=== PATIENT | female | born 1955 | race Caucasian/White ===

== ENCOUNTER → 2020-01-25 13:35 | Outpatient (BNVA) | payer MEDICAID, SELFPAY | PROVIDERS: Family Provider Nurse Practitioner Family; Visit Provider Specialist | DX: S82.141A Displaced bicondylar fracture of right tibia, initial encounter for closed fracture (principal); X58.XXXA Exposure to other specified factors, initial encounter | CPT/HCPCS: 73560; 73565 ==

== ENCOUNTER 2020-02-02 08:13 | Outpatient (CLI) | payer MEDICAID, SELFPAY ==
--- NOTE | 2020-02-02 08:45 | NM_ITS ---
WS: [id number] THREE-PHASE BONE SCAN HISTORY: surgical candidate COMPARISON: Knee radiograph 01/25/2020 Patient is is injected with 25.9 mCi Tc99m HDP intravenously. Immediate angiographic phase imaging is performed over the area of concern. Static blood pool imaging also performed. Two-hour whole-body sc intigrams performed in anterior and posterior projections. Additional large field of view imaging sub mitted as necessary. Imaging centered over the knees bilaterally. On the arterial phase imaging there is very slight increased uptake in the RIGHT medial femoral condy le extending to the midline. On the blood pool and delayed imaging there is also increased uptake in a similar location. Marked increased uptake on the delayed imaging involving the medial RIGHT femoral condyle and to a lesser extent laterally. On the delayed imaging there is slight increased uptake al abebe the medial and lateral RIGHT tibial plateau. The area of increased uptake on all 3 phases corresp onds to an area of lucency on the radiographs. Moderate increased uptake at the ankles bilaterally from arthritis. There is additional arthritic corie nges at the elbows and wrists bilaterally and minimally at the LEFT knee joint. Soft tissue uptake is normal. NM/NM bone 3 phase 50322 IMPRESSION: 1. Increased uptake in all 3 phases involving the RIGHT medial femoral condyle . Suspicious for osteomyelitis. This corresponds to an area of lucency and lyti c change in the medial RIGHT femoral condyle seen on recent radiographs. 2. Additional uptake at multiple joints as described above is likely due to ar thritis.
== END 2020-02-02 08:14 | disposition home or self-care (01) ==
LOC: NM 08:15
PROVIDERS: PCP Nurse Practitioner Family; Visit Provider Specialist
DX: M25.562 Pain in left knee (principal); M25.561 Pain in right knee
CPT/HCPCS: 78315; A9561

== ENCOUNTER 2020-02-03 13:25 | Emergency (ER) | payer MEDICAID, SELFPAY | END 2020-02-03 20:38 | disposition admitted as inpatient to this hospital (09) | LOC: ER 02-04 18:06 | PROVIDERS: Emergency Provider Emergency Medicine; PCP Nurse Practitioner Family | DX: M25.552 Pain in left hip (principal); F17.210 Nicotine dependence, cigarettes, uncomplicated | CPT/HCPCS: 12345; 72131; 73502; 73552; 75635; 80053; 84145; 85025; 85651; 86140; 93926; 93971; 96361; 96374; 96375; 99282; 99285; J0131; J1170; J2270; J2405; J7030; Q9967 ==

== ENCOUNTER 2020-02-03 13:45 | Inpatient (IN) | payer MEDICAID, SELFPAY ==
[2020-02-03 13:46] VITALS: BP 147/76; PULSE 86; RESP 18; TEMP 36.9; O2SAT 98; BMI 21.0
--- NOTE | 2020-02-03 13:55 | XRR_ITS ---
PROCEDURE INFORMATION: Exam: XR Left Hip with Pelvis when Performed Exam date and time: 02/03/2020 2:52 PM Age: 64 years old Clinical indication: Hip pain; Patient HX: Previous right hip surgery. C/O pain left hip -leg x 1 week; Additional info: Pain. Was preparing for right knee surgery TECHNIQUE: Imaging protocol: XR Left hip with pelvis when performed. Views: 2 or 3 views. COMPARISON: No relevant prior studies available. FINDINGS: Bones/joints: Metallic intramedullary bravo and screw is seen in the right hip. No acute fracture. The examination is otherwise unremarkable Soft tissues: Unremarkable. XR/XR hip LT 2-3V wo/w pel* [id number] IMPRESSION: No acute findings. Postsurgical changes right hip
--- NOTE | 2020-02-03 13:55 | USCV_ITS ---
Lori Thomas Age: 64 Gender: F : 1955 Exam Date: 02/03/2020 14:20 Ordering Phys: Kasandra Zaidi DO Technologist: Kevin Sarah Exam Location: [facility] – [place]_ Indication: PAIN HISTORY: left lower extremity pain PROCEDURES: Venous duplex imaging was performed in only the left lower extremity. FINDINGS: Normal 2-D Doppler and augmentation and compressibility throughout the lower extremity venous structures. Additional imaging through the proximal calf veins also reveals no thrombus. Limited evaluation of the greater saphenous vein is patent with no thrombus.. CONCLUSIONS No evidence of DVT in the above-mentioned identifiable veins. Dr Loc Lackey MD FAC (Electronically Signed) Final Date: 03 February 2020 20:03 S
--- NOTE | 2020-02-03 13:55 | USCV_ITS ---
Lori Thomas Age: 64 Gender: F : 1955 Exam Date: 02/03/2020 14:25 Ordering Phys: Kasandra Zaidi DO Technologist: Kevin Sarah Exam Location: [facility] [place] Indication: PAIN Risk Factors: Previous Vascular Surgery: None RIGHT LEFT BP: 150.0 / BP: 150.0/ 0 0 Waveform Velocity (cm/s) Velocity (cm/s) Waveform Iliac Prox 90.4 Triphasic Iliac Mid 93.7 Triphasic Iliac Distal 101.4 Triphasic SLAB POLISHER 93.7 Triphasic SFA Prox 102.5 Triphasic SFA Mid 113.6 Triphasic SFA Dist 98.1 Triphasic POP 94.8 Triphasic [employer] LAYUP LINE BACK FEEDER 89.7 Triphasic DPA 67.7 Biphasic TIFFANY 1.1 FINDINGS Normal resting TIFFANY on the left side. Normal arterial Doppler waveform. Minimal intimal thickening in the arteries. CONCLUSIONS No significant arterial obstruction on the left side, based on the above findings Dr Loc Lackey MD [facility] (Electronically Signed) Final Date: 03 February 2020 20:06 S
--- NOTE | 2020-02-03 13:55 | XRR_ITS ---
PROCEDURE INFORMATION: Exam: XR Left Femur Exam date and time: 02/03/2020 2:52 PM Age: 64 years old Clinical indication: Hip and thigh; Patient HX: C/O pain left hip leg x 1 week TECHNIQUE: Imaging protocol: XR Left femur. Views: 2 views. COMPARISON: No relevant prior studies available. FINDINGS: Bones/joints: Unremarkable. No acute fracture. Soft tissues: Unremarkable. XR/XR femur LT min 2V* [id number] IMPRESSION: No acute findings.
--- NOTE | 2020-02-03 14:15 | W.ED.EXTPRO ---
HPI - Extremity Problem General: Chief complaint: Extremity Injury, Lower Stated complaint: lower extremity pain Time Seen by Provider: 02/03/20 13:47 Source: patient and EMS Mode of arrival: EMS Limitations: no limitations History of Present Illness: HPI Narrative: Lori is a nice 64-year-old female who comes in complaining of left leg pain. She states she had some outpatient test done here at the hospital yesterday planning for a right knee surgery. She got up during the night and noticed pain in her left leg but then this morning she had severe pain in her left groin, left thigh that extends down to her knee. The pain is worse when she tries to move it or bear weight. She denies fevers, injury or distal numbness or weakness. Patient denies having anything like this before. She is not tried anything at home for the pain or to make this better or worse. Associated symptoms: Deny chest pain, fever(s) or rash Review of Systems Const: Denies: fever(s), chills, body aches, fatigue, malaise or diaphoresis Eyes: Denies: change in vision, blurry vision, blind spots, photophobia, eye discharge or eye redness ENMT: Denies: throat pain, odynophagia, hoarseness, swelling of lips/tongue, oral sores, ear or mastoid pain, ear discharge, change in hearing or nasal discharge Card: Denies: chest pain, palpitations, irregular heart rhythm, edema, lightheadedness, syncope, pre-syncope, dyspnea on exertion or orthopnea Resp: Denies: dyspnea, productive cough, non-productive cough, wheezing, hemoptysis or chest congestion GI: Denies: abdominal pain, nausea, vomiting, hematemesis, coffee ground emesis, heartburn, diarrhea, constipation, GI cramping, hematochezia or melena : Denies: flank pain, dysuria, urinary frequency, urinary urgency or hematuria Musc: Reports: extremity pain; Denies: neck pain, back pain, extremity swelling, joint pain, joint swelling, joint redness, joint warmth or joint stiffness Skin/Breast: Denies: rash, pruritus, erythema, skin tenderness or jaundice Neuro: Denies: headache(s), numbness in extremities, weakness in extremities, sensory changes, lack of coordination, difficulty walking, dizziness, vertigo, confusion, Slurred speech present or seizure-like activity Ronald/Lymph: Denies: easy bruising, easy bleeding, petechiae, purpura or enlarged lymph nodes All/Imm: Denies: urticaria, throat swelling, tongue swelling, facial swelling or acute wheezing PFSH ED PFSH: Medical History Fibromyalgia Hypothyroidism Nicotine dependence Osteomyelitis of right knee region Rheumatoid arthritis S/P ORIF (open reduction internal fixation) fracture Surgical History Status post hip surgery Right intertrochanteric hip fracture 06/30 Family History Other Arthritis Social History Smoking and tobacco status: current every day smoker cigarettes Packs smoked per day: 0.5 Alcohol intake: never Substance/Drug Use: never Housing: House Physical Exam Const: COMMON NORMALS: no acute distress, patient oriented x3, no limitations, healthy appearing and well nourished GENERAL APPEARANCE: cooperative, well kempt and well developed HENMT: COMMON NORMALS: normocephalic, atraumatic, external ears normal, EAC's normal and Normal external nose present HEAD & SCALP: normal to inspection, normocephalic and atraumatic FACE & SINUS: normal facial exam and face symmetric NOSE: Normal external nose present and Normal nares present EXTERNAL EAR: Yes external ears normal EXTERNAL AUDITORY CANAL: EAC's normal MOUTH: Normal oral and palatal mucosa present, lip normal and tongue normal Eye: COMMON NORMALS: Equal, round and reactive pupils present and conjunctivae normal GENERAL EYE: appearance normal, both eyes and all related structures ALIGNMENT: Yes alignment normal PERIORBITAL: periorbital findings normal EYELID: eyelids normal CONJUNCTIVA: Yes conjunctivae normal SCLERA: sclerae normal PUPIL: Yes Equal, round and reactive pupils present Neck/C-Spine: COMMON NORMALS: full ROM, no lymphadenopathy, supple, no meningeal signs and no JVD GENERAL: Yes normal visual inspection and Yes trachea midline Chest: COMMONS NORMALS: normal inspection of the chest and normal palpation of entire chest wall Resp: COMMON NORMALS: normal respiratory effort, No retractions and No use of accessory muscles EFFORT & INSPECTION: Yes able to speak in complete sentences and Yes symmetric chest movement AUSCULTATION: no crackles, no rales, no rhonchi and no wheezes Cardio: COMMON NORMALS: no JVD, regular rate, regular rhythm, S1 normal heart sound present and S2 normal heart sound present RATE: regular rate RHYTHM: regular rhythm HEART SOUNDS: S1 normal heart sound present, S2 normal heart sound present, no click, no gallops, no murmurs, no rubs and abnormal split S2 GI: COMMON NORMALS: Soft to palpation and No hepatosplenomegaly present PALPATION: Yes Soft to palpation, No Tenderness to palpation present (GI), No Guarding due to palpation present (GI), No Rigid due to palpation, Yes No hepatosplenomegaly present, No Hernia present, No Palpable mass present and No Pulsatile mass present : COMMON NORMALS: Yes no CVA tenderness BLADDER/KIDNEY EXAM: Yes no CVA tenderness EXTERNAL FEMALE EXAM: No Hernia present Back/Pelvis: COMMON NORMALS: no CVA tenderness, thoracic and lumbar spine normal to inspection, no thoracic nor lumbar tenderness and thoraco-lumbar ROM normal Extremity: COMMON NORMALS: capillary refill normal, no joint enlargement, no clubbing, cyanosis or edema and no calf tenderness NARRATIVE EXTREMITY EXAM: Pain on palpation from the greater trochanter down through the mid thigh. Neuro: COMMON NORMALS: patient oriented x3, CN's II-XII intact bilaterally, moves all extremities, no focal motor deficits and no sensory deficits noted MENINGEAL SIGNS: Yes no meningeal signs SPEECH: speech normal Psych: COMMON NORMALS: mental status grossly normal, Normal thought process present, cooperative, normal affect, speech normal and activity/motor behavior normal APPEARANCE: Yes well kempt SPEECH: Yes normal speech THOUGHT PROCESS: Normal thought process present Skin: COMMON NORMALS: no rashes or lesions noted, turgor normal, no jaundice, no petechiae and no mottling GENERAL SKIN EXAM: no rashes or lesions noted and turgor normal Course Vital Signs: Vital signs: Vital Signs Temperature 98.4 F 02/03/20 21:07 Pulse Rate 71 02/03/20 21:07 Respiratory Rate 18 02/03/20 21:38 Blood Pressure 130/63 02/03/20 21:07 Pulse Oximetry 94 02/03/20 21:07 MDM - Extremity (Nontraumatic) MDM Narrative: Medical decision making narrative: After complete work-up the patient initially wanted to go home with crutches and something for pain. Unfortunately I am unable to relieve her pain. Any movement at all she has severe pain in her left leg and hip. I reviewed the case in full with Dr. Mccarty he agrees the patient will need an MRI or further work-up by orthopedics for possible septic joint. I did review the case in full with the radiologist who saw no evidence of bony destruction, joint effusion or anything in the left inguinal or right hip area. It is possible her inflammatory markers and white count are up as she is been diagnosed with osteomyelitis of the right knee. Further care will be dictated inpatient basis but the patient will be admitted and covered for at this time. Lab Data: Labs: Lab Results 02/03/20 02/03/20 02/03/20 Range/Units 12:41 12:41 12:41 WBC 14.0 H (4.0-10.0) 10^3/ uL RBC 3.65 L (4.1-5.3) 10^6/u L Hgb 12.3 (11.5-15.3) g/dL Hct 34.9 L (37.0-47.0) % MCV 95.6 (81-99) fL MCH 33.7 (28.0-34.0) pg MCHC 35.2 (30.0-36.0) g/dL RDW 14.2 (12.1-15.1) % Plt Count 168 (130-400) 10^3/c mm MPV 9.4 (7.4-10.4) fL Neut % (Auto) 88.5 % Lymph % (Auto) 8.7 % [place] % (Auto) 1.7 % Eos % (Auto) 0.3 % Baso % (Auto) 0.4 % Neut # (Auto) 12.4 H (1.8-7.7) 10^3/u L Lymph # (Auto) 1.2 (0.8-4.8) 10^3/u L [place] # (Auto) 0.2 (0.2-0.9) 10^3/u L Eos # (Auto) 0.0 (0.0-0.8) 10^3/u L Baso # (Auto) 0.1 (0.0-0.1) 10^3/u L Nucleated RBC % (a uto) 0 % Nucleated RBCs # 0.0 /100WBC ESR 54 H (0-15) mm/hr Sodium 137 (136-145) mmol/L Potassium 3.6 (3.5-5.1) mmol/L Chloride 100 (98-107) mmol/L Carbon Dioxide 25 (22-29) mmol/L Anion Gap 15.6 (5-19) BUN 20 (8-23) mg/dL Creatinine 1.0 H (0.5-0.9) mg/dL GFR Calculation 56.0 L (90-130) mL/min Glucose 90 (65-115) mg/dL Calculated Osmolal ity 280 L (285-295) mOsm/k g Calcium 9.7 (8.5-10.5) mg/dL Total Bilirubin 1.0 (0.15-1.2) mg/dL AST 31 (0-32) U/L ALT 22 (0-33) U/L Alkaline Phosphata se 165 H (35-105) IU/L C-Reactive Protein 11.4 H (0.0-4.9) mg/L Total Protein 6.7 (6.6-8.7) g/dL Albumin 3.8 (3.5-5.2) g/dL Globulin 2.9 (1.3-4.6) g/dL Procalcitonin (0-0.5) ng/mL 02/03/20 Range/Units 12:41 WBC (4.0-10.0) 10^3/ uL RBC (4.1-5.3) 10^6/u L Hgb (11.5-15.3) g/dL Hct (37.0-47.0) % MCV (81-99) fL MCH (28.0-34.0) pg MCHC (30.0-36.0) g/dL RDW (12.1-15.1) % Plt Count (130-400) 10^3/c mm MPV (7.4-10.4) fL Neut % (Auto) % Lymph % (Auto) % [place] % (Auto) % Eos % (Auto) % Baso % (Auto) % Neut # (Auto) (1.8-7.7) 10^3/u L Lymph # (Auto) (0.8-4.8) 10^3/u L [place] # (Auto) (0.2-0.9) 10^3/u L Eos # (Auto) (0.0-0.8) 10^3/u L Baso # (Auto) (0.0-0.1) 10^3/u L Nucleated RBC % (a uto) % Nucleated RBCs # /100WBC ESR (0-15) mm/hr Sodium (136-145) mmol/L Potassium (3.5-5.1) mmol/L Chloride (98-107) mmol/L Carbon Dioxide (22-29) mmol/L Anion Gap (5-19) BUN (8-23) mg/dL Creatinine (0.5-0.9) mg/dL GFR Calculation (90-130) mL/min Glucose (65-115) mg/dL Calculated Osmolal ity (285-295) mOsm/k g Calcium (8.5-10.5) mg/dL Total Bilirubin (0.15-1.2) mg/dL AST (0-32) U/L ALT (0-33) U/L Alkaline Phosphata se (35-105) IU/L C-Reactive Protein (0.0-4.9) mg/L Total Protein (6.6-8.7) g/dL Albumin (3.5-5.2) g/dL Globulin (1.3-4.6) g/dL Procalcitonin 0.27 (0-0.5) ng/mL Imaging Data^: US Left Lower Extremity Venous Doppler: My impression: Tech interpretation -negative for DVT US arterial left lower extremity Doppler with TIFFANY: My impression: Tech interpretation -TIFFANY 1.0. Normal flow throughout the leg. CTl Lumbar Spine: Radiologist's impression: [address] [address] [address] Scan Report Signed Patient: Lori Thomas Unit #: [id number] : 1955 Age/Sex: 64 / F ADM Date: 02/03/20 Loc: ER Room/Bed: Attending Dr: Ordering Provider/Ordering MD: Kasandra Zaidi DO Date of Service: 02/03/20 Procedure(s): CT lumbar spine wo con* [id number] Accession Number(s): [id number] Report Number: [id number] PROCEDURE INFORMATION: Exam: CT Lumbar Spine Without Contrast Exam date and time: 02/03/2020 5:34 PM Age: 64 years old Clinical indication: Low back pain TECHNIQUE: Imaging protocol: Computed tomography images of the lumbar spine without contrast. Radiation optimization: All CT scans at this facility use at least one of these dose optimization techniques: automated exposure control; mA and/or kV adjustment per patient size (includes targeted exams where dose is matched to clinical indication); or iterative reconstruction. COMPARISON: No relevant prior studies available. RADIATION DOSE METRICS: Total DLP (mGy-cm): 1469.1 FINDINGS: Vertebrae: No visible fracture, subluxation, or dislocation. No visible active or acute osseous abnormality. Osteopenia. No visible spondylolysis or spondylolisthesis. Discs/Spinal canal/Neural foramina: Intervertebral disc space heights preserved for age. No visible herniated nucleus pulposis or significant posterior annular disc bulge that would result in central canal stenosis or neural foraminal encroachment. No visible facet arthrosis. Vasculature: The abdominal aorta within the field of view is nonaneurysmal. Moderate arterial sclerotic disease. Soft tissues: Unremarkable. No visible paraspinal atrophy. CT/CT lumbar spine wo con* [id number] IMPRESSION: 1. No visible acute osseous abnormality. 2. Intervertebral disc space heights preserved for age without evidence for HNP or significant posterior annular disc bulge that would result in central canal stenosis or neural foraminal encroachment. 3. No visible spondylolysis or spondylolisthesis. 4. Osteopenia. Radiation Dose CTDIVOL = (mGy): DLP = 1469.1 (mGy-cm) Dictated By: Jaswinder Bah Signed By: Jaswinder Bah Signed Date/Time: 02/03/201809 DD/ 07 CT angios abdomen with bilateral lower extremity runoff: Radiologist's impression: [address] [place] [address] CT Scan Report Signed Patient: Lori Thomas Unit #: [id number] : 1955 Age/Sex: 64 / F ADM Date: 02/03/20 Loc: ER Room/Bed: Attending Dr: Ordering Provider/Ordering MD: Kasandra Zaidi DO Date of Service: 02/03/20 Procedure(s): CT angio abd aorta runof 88255 Accession Number(s): [id number] Report Number: [id number] PROCEDURE INFORMATION: Exam: CTA Angiogram of the Abdominal Aorta and Bilateral Lower Extremities (Run-off) With IV Contrast Exam date and time: 02/03/2020 5:34 PM Age: 64 years old Clinical indication: Other: Lt inguinal pain; Prior surgery; Surgery type: RT hip and RT knee; Additional info: Left inguinal pain with runoff to bilateral lower extremities TECHNIQUE: Imaging protocol: CT angiogram of the abdominal aorta, pelvis and bilateral lower extremities with IV iodinated contrast. 3D rendering: MIP and/or 3D reconstructed images were created by the technologist. Radiation optimization: All CT scans at this facility use at least one of these dose optimization techniques: automated exposure control; mA and/or kV adjustment per patient size (includes targeted exams where dose is matched to clinical indication); or iterative reconstruction. Contrast material: OMNI 350; Contrast volume: 80 ml; Contrast route: INTRAVENOUS (IV); COMPARISON: CR XR femur LT min 2V* [id number] 02/03/2020 2:28 PM RADIATION DOSE METRICS: Total DLP (mGy-cm): 1274.53 FINDINGS: Aorta: No aortic aneurysm. No aortic dissection. Mild arterial sclerosis. Celiac trunk and mesenteric arteries: No occlusion or significant stenosis. Renal arteries: No occlusion or significant stenosis. Right iliac arteries: No occlusion or significant stenosis. Right femoral/popliteal arteries: No occlusion or significant stenosis. Right infrapopliteal arteries: No occlusion or significant stenosis. Left iliac arteries: No occlusion or significant stenosis. Left femoral/popliteal arteries: No occlusion or significant stenosis. Left infrapopliteal arteries: No occlusion or significant stenosis. Three-vessel runoff to the feet. Liver: No mass. Gallbladder and bile ducts: Unremarkable. No calcified stones. No ductal dilation. Pancreas: Unremarkable. No mass. No ductal dilation. Spleen: Normal. No splenomegaly. Adrenals: Normal. No mass. Kidneys and ureters: Normal. No mass. Stomach and bowel: Unremarkable. No obstruction. No mucosal thickening. Appendix: No evidence of appendicitis. Bladder: Unremarkable. No mass. Reproductive: Small calcified uterine leiomyoma. Otherwise unremarkable for age. Intraperitoneal space: Unremarkable. No free air. No significant fluid collection. Lymph nodes: No lymphadenopathy. Bones/joints: Metal artifact from right hip and femur hardware. Soft tissues: Unremarkable. Other findings: A total 1348 images were acquired that will require assessment and interpretation. CT/CT angio abd aorta runof [id number] IMPRESSION: 1. Mild arterial sclerosis. 2. The abdominal aorta is nonaneurysmal. 3. No visible vascular occlusive disease, hemodynamically significant stenosis, or aneurysm. 4. Three-vessel runoff to the feet. Radiation Dose CTDIVOL = (mGy): DLP = 1274.53 (mGy-cm) Dictated By: Jaswinder Bah Signed By: Jaswinder Bah Signed Date/Time: 02/03/201857 DD/ 55 Discharge Plan Discharge Patient Disposition: Home, Self-Care Admit Provider: Mohan Mccarty Clinical Impression: Acute pain of left hip Condition: Stable Discharge Orders: Discharge Order (Routine); Ordered 02/03/20 Ordered By: Kasandra Zaidi Discharge Diet: Advance as tolerated Discharge Activity: Use walker/crutches as instructed Discharge Date/Time: 02/03/20 20:38 Coding Level of Care Code ED Protective Signal Operator for Diana Fwd Exam Comprehensive
[2020-02-03] MEDS: sodium chloride 0.9% 1,000 ML 100 ML IV ×2 (14:16→21:38)
[2020-02-03 14:17] VITALS: RESP 17; O2SAT 97
[2020-02-03] MEDS: HYDROmorphone 1 mg/mL INJ 1 mL 0.5 MG IVP (14:17)
[2020-02-03] MEDS: ondansetron 2 mg/ML SDV 2 mL 4 MG IVP (14:17)
[2020-02-03 15:00] LABS: Alanine Aminotransferase 22 U/L (0-33); Albumin Level 3.8 g/dL (3.5-5.2); Alkaline Phosphatase 165 IU/L (35-105); Anion Gap 15.6 (5-19); Aspartate Amino Transferase 31 U/L (0-32); Basophils # 0.1 10^3/uL (0.0-0.1); Basophils % 0.4 %; Blood Urea Nitrogen 20 mg/dL (8-23); Calcium 9.7 mg/dL (8.5-10.5); Carbon Dioxide 25 mmol/L (22-29); Chloride 100 mmol/L (98-107); Eosinophils % 0.3 %; Globulin 2.9 g/dL (1.3-4.6); Glucose 90 mg/dL (65-115); Hematocrit 34.9 % (37.0-47.0); Hemoglobin 12.3 g/dL (11.5-15.3); Lymphocytes # 1.2 10^3/uL (0.8-4.8); Lymphocytes % 8.7 %; Mean Corpuscular HGB Conc 35.2 g/dL (30.0-36.0); Mean Corpuscular Hemoglobin 33.7 pg (28.0-34.0); Mean Corpuscular Volume 95.6 fL (81-99); Mean Platelet Volume 9.4 fL (7.4-10.4); Monocytes # 0.2 10^3/uL (0.2-0.9); Monocytes % 1.7 %; Neutrophils # 12.4 10^3/uL (1.8-7.7); Neutrophils % 88.5 %; Nucleated Red Blood Cells % 0 %; Osmolality Calculated 280 mOsm/kg (285-295); Platelet Count 168 10^3/cmm (130-400); Potassium 3.6 mmol/L (3.5-5.1); Red Blood Count 3.65 10^6/uL (4.1-5.3); Red Cell Distribution Width 14.2 % (12.1-15.1); Sodium 137 mmol/L (136-145); Total Protein 6.7 g/dL (6.6-8.7)
[2020-02-03 15:30] LABS: C Reactive Protein 11.4 mg/L (0.0-4.9)
[2020-02-03 16:03] LABS: Erythrocyte Sedimentation Rate 54 mm/hr (0-15)
--- NOTE | 2020-02-03 17:23 | CTR_ITS ---
PROCEDURE INFORMATION: Exam: CTA Angiogram of the Abdominal Aorta and Bilateral Lower Extremities (Run-off) With IV Contrast Exam date and time: 02/03/2020 5:34 PM Age: 64 years old Clinical indication: Other: Lt inguinal pain; Prior surgery; Surgery type: RT hip and RT knee; Additional info: Left inguinal pain with runoff to bilateral lower extremities TECHNIQUE: Imaging protocol: CT angiogram of the abdominal aorta, pelvis and bilateral lower extremities with IV iodinated contrast. 3D rendering: MIP and/or 3D reconstructed images were created by the technologist. Radiation optimization: All CT scans at this facility use at least one of these dose optimization techniques: automated exposure control; mA and/or kV adjustment per patient size (includes targeted exams where dose is matched to clinical indication); or iterative reconstruction. Contrast material: OMNI 350; Contrast volume: 80 ml; Contrast route: INTRAVENOUS (IV); COMPARISON: CR XR femur LT min 2V* [id number] 02/03/2020 2:28 PM RADIATION DOSE METRICS: Total DLP (mGy-cm): 1274.53 FINDINGS: Aorta: No aortic aneurysm. No aortic dissection. Mild arterial sclerosis. Celiac trunk and mesenteric arteries: No occlusion or significant stenosis. Renal arteries: No occlusion or significant stenosis. Right iliac arteries: No occlusion or significant stenosis. Right femoral/popliteal arteries: No occlusion or significant stenosis. Right infrapopliteal arteries: No occlusion or significant stenosis. Left iliac arteries: No occlusion or significant stenosis. Left femoral/popliteal arteries: No occlusion or significant stenosis. Left infrapopliteal arteries: No occlusion or significant stenosis. Three-vessel runoff to the feet. Liver: No mass. Gallbladder and bile ducts: Unremarkable. No calcified stones. No ductal dilation. Pancreas: Unremarkable. No mass. No ductal dilation. Spleen: Normal. No splenomegaly. Adrenals: Normal. No mass. Kidneys and ureters: Normal. No mass. Stomach and bowel: Unremarkable. No obstruction. No mucosal thickening. Appendix: No evidence of appendicitis. Bladder: Unremarkable. No mass. Reproductive: Small calcified uterine leiomyoma. Otherwise unremarkable for age. Intraperitoneal space: Unremarkable. No free air. No significant fluid collection. Lymph nodes: No lymphadenopathy. Bones/joints: Metal artifact from right hip and femur hardware. Soft tissues: Unremarkable. Other findings: A total 1348 images were acquired that will require assessment and interpretation. CT/CT angio abd aorta runof [id number] IMPRESSION: 1. Mild arterial sclerosis. 2. The abdominal aorta is nonaneurysmal. 3. No visible vascular occlusive disease, hemodynamically significant stenosis, or aneurysm. 4. Three-vessel runoff to the feet. Radiation Dose CTDIVOL = (mGy): DLP = 1274.53 (mGy-cm)
--- NOTE | 2020-02-03 17:33 | CTR_ITS ---
PROCEDURE INFORMATION: Exam: CT Lumbar Spine Without Contrast Exam date and time: 02/03/2020 5:34 PM Age: 64 years old Clinical indication: Low back pain TECHNIQUE: Imaging protocol: Computed tomography images of the lumbar spine without contrast. Radiation optimization: All CT scans at this facility use at least one of these dose optimization techniques: automated exposure control; mA and/or kV adjustment per patient size (includes targeted exams where dose is matched to clinical indication); or iterative reconstruction. COMPARISON: No relevant prior studies available. RADIATION DOSE METRICS: Total DLP (mGy-cm): 1469.1 FINDINGS: Vertebrae: No visible fracture, subluxation, or dislocation. No visible active or acute osseous abnormality. Osteopenia. No visible spondylolysis or spondylolisthesis. Discs/Spinal canal/Neural foramina: Intervertebral disc space heights preserved for age. No visible herniated nucleus pulposis or significant posterior annular disc bulge that would result in central canal stenosis or neural foraminal encroachment. No visible facet arthrosis. Vasculature: The abdominal aorta within the field of view is nonaneurysmal. Moderate arterial sclerotic disease. Soft tissues: Unremarkable. No visible paraspinal atrophy. CT/CT lumbar spine wo con* [id number] IMPRESSION: 1. No visible acute osseous abnormality. 2. Intervertebral disc space heights preserved for age without evidence for HNP or significant posterior annular disc bulge that would result in central canal stenosis or neural foraminal encroachment. 3. No visible spondylolysis or spondylolisthesis. 4. Osteopenia. Radiation Dose CTDIVOL = (mGy): DLP = 1469.1 (mGy-cm)
[2020-02-03] MEDS: iohexol 350 mg/mL 100 mL Btl IV (17:55)
[2020-02-03 18:21] VITALS: RESP 18; O2SAT 99
[2020-02-03] MEDS: morphine 4 mg/mL SDV 1 mL IVP (18:21)
--- NOTE | 2020-02-03 19:38 | P.HP_ITS ---
Providers/Chief Complaint Primary Care Provider: CELINE Garcia Chief Complaint: lower extremity pain History of Present Illness Lori Thomas is a 64 year old female who carries history of rheumatoid arthritis on disease modifying agent methotrexate, hypothyroidism, right knee osteomyelitis came in with chief complaint of left hip pain. Patient recently had bone scan done yesterday which showed right knee osteomyelitis, she is not on any antibiotics, she did not spike any fever at home, she did not signs any nausea vomiting or chills. This morning she woke up with left hip pain which she is describing as sharp excruciating pain in her left inguinal region which is radiating towards the groin area, she is not noticing any worsening of this pain with urination. She is notable to bear weight on left leg. Because of her worsening symptoms she decided to come to the ED for further evaluation. Diagnosis in the ER revealed high ESR, CRP, leukocytosis, she has been afebrile, CT scan of soft tissue and vascular territory did not show acute pathology, Dr. Scruggs has been consulted, our concern is septic arthritis, Will get MRI tomorrow morning, Right knee has no swelling, has tenderness on medial region Review of Systems Const: Reports: body aches and fatigue; Denies: fever(s) or chills Eyes: Denies: change in vision ENMT: Denies: throat pain Card: Denies: chest pain Resp: Denies: dyspnea GI: Denies: abdominal pain, nausea or vomiting : Denies: flank pain Musc: Reports: joint pain and joint stiffness; Denies: joint redness or joint warmth Skin/Breast: Denies: rash Neuro: Denies: headache(s) Psych: Denies: anxiety Endo: Denies: polyuria Ronald/Lymph: Denies: easy bruising All/Imm: Denies: urticaria Medications/Allergies Home Medications Medication Instructions Recorded Confirmed Last Taken Type levothyroxine 50 mcg capsule 50 mcg PO DAILY 01/25/20 02/03/20 02/03/20 History naproxen 500 mg tablet 500 mg PO BID 01/25/20 02/03/20 02/02/20 History tramadol 50 mg tablet 100 mg PO BID PRN 01/25/20 02/03/20 02/02/20 History Calcium 500 1 tab PO DAILY 02/03/20 02/03/20 02/02/20 History Vitamin B-12 1 tab PO DAILY 02/03/20 02/03/20 02/02/20 History Vitamin D3 1 tab PO DAILY 02/03/20 02/03/20 02/02/20 History aspirin [Aspir-81] 81 mg PO DAILY 02/03/20 02/03/20 02/02/20 History folic acid 1 mg PO DAILY 02/03/20 02/03/20 02/02/20 History hydrocodone-acetaminophen [[place]oke[place]] 1 tab PO Q6H PRN 5 Days #20 tab 02/03/20 Unknown Rx methotrexate sodium 20 mg PO Q7D 02/03/20 02/03/20 Unknown History Allergies Allergy/AdvReac Type Severity Reaction Status Date / Time No Known Allergies Allergy Verified 02/03/20 14:11 PFSH Acute PFSH: Medical History Fibromyalgia Hypothyroidism Nicotine dependence Osteomyelitis of right knee region Rheumatoid arthritis S/P ORIF (open reduction internal fixation) fracture Surgical History Status post hip surgery Right intertrochanteric hip fracture 06/30 Family History Other Arthritis Social History Smoking and tobacco status: current every day smoker cigarettes Packs smoked per day: 0.5 Alcohol intake: never Substance/Drug Use: never Housing: House Vitals/I&O/Wt Last Vital Signs Temp 98.5 F 02/03/20 13:46 Pulse 86 02/03/20 13:46 Resp 18 02/03/20 18:21 BP 147/76 02/03/20 13:46 Pulse Ox 99 02/03/20 18:21 Weight last 48 hrs Weight 52.163 kg Physical Exam Narrative: EXAM NARRATIVE: Head to toe examination Patient is lying comfortably in her bed without any active discomfort She has limited range of motion of left hip, not able to bear weight, Left hip joint is not tender on palpation, I do not see any redness around right knee however it is tender to palpate around medial region S1, S2 no tachycardia Abdomen soft nontender nondistended Neurological nonfocal exam Lungs are clear to auscultation Skin does not show any sign of active inflammation or cellulitis Appropriate mood and affect Data : 02/03/20 12:41 02/03/20 12:41 A&P Assessment and plan (1) Acute pain of left hip: Status: Acute (2) Osteomyelitis of right knee region: Status: Acute Additional A&P Information Acute left-sided hip pain Rule out septic arthritis because of history of rheumatoid arthritis I would add vancomycin and cefepime for MRSA and pseudomonal coverage because of her immunocompromised state She will need MRI in the morning to delineate etiology Dr. Scruggs has been consulted MRI screening to be done because of her screws and nails in right hip Analgesia and bowel regimen include Right knee osteomyelitis Without active sepsis on admission Bone scan concerning for osteomyelitis done yesterday Currently she is afebrile, Above-mentioned antibiotic regimen would cover her adequately Before discharge she will need PICC line placement and long-term IV antibiotic regimen Rheumatoid arthritis She takes methotrexate weekly with folic acid hold for now Full code DVT prophylaxis would avoid anticoagulation in case she would need hip joint arthrocentesis Cardiac diet Attestations Medical Necessity Statement*: Anticipating stay in the hospital cross more than 2 midnights currently need IV antibiotic regimen for right knee osteomy elitis and need to rule out septic arthritis of left hip Time Spent in Patient Care: (>than 50% of time spent in counselling and/or direct pt care on unit) . 60mins Coding Level of Care Code Acute Portrait Artist for Diana Shahid Diagnoses Acute pain of left hip M25.552 Osteomyelitis of right knee region M86.9
[2020-02-03 20:34] VITALS: BP 128/69; PULSE 79; RESP 17; O2SAT 93
[2020-02-03 21:07] VITALS: BP 130/63; PULSE 71; RESP 16; TEMP 36.9; O2SAT 94
--- NOTE | 2020-02-03 21:13 | PC.PHAR ---
Vancomycin is dosed at 1000mg IVPB ever 24 hours to produce a predicted trough level of 16.14 (population based pharmacokinetic analysis). A trough level has been ordered from the lab to be obtained after the third dose to confirm and adjust if needed.
[2020-02-03] MEDS: cefepime 1,000 MG in sodium chloride 0.9% (plus) 50 ML 100 MG IV (21:37)
[2020-02-03 21:38] VITALS: RESP 18
[2020-02-03 21:53] LABS: Procalcitonin 0.27 ng/mL (0-0.5)
[2020-02-03] MEDS: vancomycin 1,000 MG in sodium chloride 0.9% 250 ML 250 MG IV (22:31)
[2020-02-03] MEDS: acetaminophen 325 mg Tablet 650 MG PO (23:28)
[2020-02-04] VITALS (7 sets, daily range): BP systolic 94–110; BP diastolic 50–58; PULSE 71–107; RESP 17–20; TEMP 36.7–37.4; O2SAT 90–97
[2020-02-04 02:31] LABS: Bacteria Urine TRACE; Bilirubin Urine Neg (NEGATIVE); Blood Urine Neg (Negative); Glucose Urine UA Norm (Normal); Ketones Urine Negative (Negative); Leukocyte Esterase Urine Negative (Negative); Nitrate Urine Negative (Negative); Protein Urine Neg (Negative); Specific Gravity, Urine 1.005 (1.005-1.030); Squamous Epithelial Cell Urine 0-4 (0-5); Urine Appearance Clear (CLEAR); Urine Color Yellow (Yellow); Urobilinogen Urine Norm (Negative); WBC Urine RARE /hpf (0-5); pH Urine 7 (5-7)
[2020-02-04 05:32] LABS: Basophils # 0.1 10^3/uL (0.0-0.1); Basophils % 0.5 %; Eosinophils # 0.1 10^3/uL (0.0-0.8); Eosinophils % 1.1 %; Hematocrit 27.6 % (37.0-47.0); Hemoglobin 9.5 g/dL (11.5-15.3); Lymphocytes # 1.5 10^3/uL (0.8-4.8); Mean Corpuscular HGB Conc 34.4 g/dL (30.0-36.0); Mean Corpuscular Hemoglobin 34.5 pg (28.0-34.0); Mean Corpuscular Volume 100.4 fL (81-99); Mean Platelet Volume 9.8 fL (7.4-10.4); Monocytes # 0.4 10^3/uL (0.2-0.9); Monocytes % 3.9 %; Neutrophils # 8.6 10^3/uL (1.8-7.7); Nucleated Red Blood Cells % 0 %; Platelet Count 114 10^3/cmm (130-400); Red Blood Count 2.75 10^6/uL (4.1-5.3); Red Cell Distribution Width 14.4 % (12.1-15.1); White Blood Count 10.7 10^3/uL (4.0-10.0)
[2020-02-04 05:53] LABS: Anion Gap 12.5 (5-19); Blood Urea Nitrogen 19 mg/dL (8-23); C Reactive Protein 31.1 mg/L (0.0-4.9); Calcium 8.3 mg/dL (8.5-10.5); Carbon Dioxide 24 mmol/L (22-29); Chloride 105 mmol/L (98-107); Glucose 98 mg/dL (65-115); Osmolality Calculated 282 mOsm/kg (285-295); Potassium 3.5 mmol/L (3.5-5.1); Sodium 138 mmol/L (136-145)
[2020-02-04] MEDS: aspirin 81 mg EC Tablet PO (08:34)
[2020-02-04] MEDS: cefepime 1,000 MG in sodium chloride 0.9% (plus) 50 ML 100 MG IV (08:45)
--- NOTE | 2020-02-04 09:27 | XRR_ITS ---
PROCEDURE INFORMATION: Exam: XR Right Knee Exam date and time: 02/04/2020 1:57 PM Age: 64 years old Clinical indication: Pain; Knee; Right; Prior surgery; Surgery type: Orif 2018; Additional info: Pain and abnormal bone scan TECHNIQUE: Imaging protocol: XR Right knee. Views: 3 views. COMPARISON: CR XR knees AP WB w RT lmt ORTH 01/25/2020 1:43 PM FINDINGS: Bones/joints: Metallic orthopedic hardware is seen in the distal femur lateral aspect with metallic plate and multiple screws in place. There is deformity and sclerosis involving the proximal medial metaphysis of the tibia stable since prior. The bones show anatomic alignment and appears similar to prior examination. Soft tissues: Normal. XR/XR knee RT 4V [id number] IMPRESSION: No acute findings. Status post ORIF distal femur. Chronic sclerosis and deformity proximal medial tibia
--- NOTE | 2020-02-04 09:27 | MR_ITS ---
WS: [id number] MRI RIGHT lower extremity. Noncontrast examination. HISTORY: Abnormal bone scan. Possible osteomyelitis versus nonunion. Multiplanar, multisequence imaging is performed of the RIGHT femur. There is extensive hardware throughout the RIGHT femur. Short proximal intramedullary bravo and femoral neck screw. Additional plate and screw fixation in the mid to distal femur. This hardware is obscuri ng bone detail. Abnormality seen on the recent bone scan imaging of the femoral condyle cannot be ana quately assess due to the hardware artifact. There is not a lot of edema or soft tissue edema. MR/MR lower leg RT wo con* [id number] IMPRESSION: 1. Status post RIGHT femoral neck gamma nail and intramedullary bravo placement 2. Status post fixation hardware distal femur. 3. Abnormality seen on the bone scan cannot be adequately assessed by MRI due t o the significant artifact secondary to hardware. 4. No adjacent soft tissue edema or fluid identified.
[2020-02-04] MEDS: ondansetron 2 mg/ML SDV 2 mL 4 MG IVP ×2 (09:49→15:44)
[2020-02-04] MEDS: sodium chloride 0.9% 1,000 ML 100 ML IV (09:50)
--- NOTE | 2020-02-04 13:52 | PM.CONSULT ---
Providers/Reason For Consult Consulting Physican/Specialty*: Dr. Telma Scruggs?orthopedics Reason for Consult*: New onset left hip pain Requesting Physcian: Dr. Zaidi?emergency department Attending Physician: Marino Moran MD Primary Care Provider: CELINE Garcia History of Present Illness History of Present Illness Lroi Thomas is a 64 year old female who presented last evening to the emergency department. The patient is well-known to me having undergone an open reduction internal fixation of a right intertrochanteric hip fracture. Subsequently, the patient had supracondylar fracture of the distal femur. This was treated with an open reduction internal fixation with a supracondylar femoral plate. The patient has had consistent knee pain since her injury which resulted in this open reduction internal fixation of the distal femur. This pain essentially remains unchanged. We were in the middle of a work-up prior to potentially addressing her knee pain with total knee arthroplasty, and most recently, on February 01, she had a bone scan. The bone scan was read as osteomyelitis, however, the patient does not have other symptoms consistent with this. I spoke with Dr. Deleon today regarding the bone scan, and it was active on all 3 phases. We have agreed, however, that we may have similar findings secondary to hardware loosening especially given the patient's degree of osteopenia. The patient presented to the emergency department with severe left hip pain, once again, this is in the opposite extremity. She states she woke up with it with no injury associated. When she came to the emergency department, she was unable to ambulate. She was therefore admitted to the medical service for evaluation. An MRI of the hip was ordered. Subsequently, an MRI of the knee was ordered as well. The knee MRI has been completed, but the hip MRI is still pending. Review of Systems Const: Denies: fever(s) or chills Eyes: Denies: change in vision Card: Denies: chest pain or dyspnea on exertion Resp: Denies: dyspnea or productive cough GI: Denies: abdominal pain Skin/Breast: Denies: erythema or changes in skin color Neuro: Denies: numbness in extremities Psych: Denies: anxiety or depression Ronald/Lymph: Denies: easy bruising or easy bleeding Meds/Allergies Home Medications and Allergies Home Medications Medication Instructions Recorded Confirmed Last Taken Type levothyroxine 50 mcg capsule 50 mcg PO DAILY 01/25/20 02/03/20 02/03/20 History naproxen 500 mg tablet 500 mg PO BID 01/25/20 02/03/20 02/02/20 History tramadol 50 mg tablet 100 mg PO BID PRN 01/25/20 02/03/20 02/02/20 History Calcium 500 1 tab PO DAILY 02/03/20 02/03/20 02/02/20 History Vitamin B-12 1 tab PO DAILY 02/03/20 02/03/20 02/02/20 History Vitamin D3 1 tab PO DAILY 02/03/20 02/03/20 02/02/20 History aspirin [Aspir-81] 81 mg PO DAILY 02/03/20 02/03/20 02/02/20 History folic acid 1 mg PO DAILY 02/03/20 02/03/20 02/02/20 History hydrocodone-acetaminophen [[place]] 1 tab PO Q6H PRN 5 Days #20 tab 02/03/20 Unknown Rx methotrexate sodium 20 mg PO Q7D 02/03/20 02/03/20 Unknown History Allergies Allergy/AdvReac Type Severity Reaction Status Date / Time No Known Allergies Allergy Verified 02/03/20 14:11 Current Medications Current Medications Generic Name Dose Route Start Last Admin Trade Name Freq PRN Reason Stop Dose Admin Acetaminophen 650 mg 02/03/20 20:57 02/03/20 23:28 Tylenol PO 650 mg Q4H PRN Administration Mild pain Aspirin 81 mg 02/04/20 09:00 02/04/20 08:34 Aspirin Ec PO 81 mg DAILY RADHA Administration Hydromorphone HCl 2 mg 02/03/20 20:57 02/04/20 02:10 Dilaudid Tab PO 2 mg Q4H PRN Administration Moderate pain Sodium Chloride 1,000 mls @ 100 mls/hr 02/03/20 14:00 02/04/20 09:50 Sodium Chloride 0.9% IV 100 mls/hr .Q10H RADHA Administration Vancomycin HCl 1,000 mg/ 250 mls @ 250 mls/hr 02/03/20 22:00 02/04/20 08:40 Sodium Chloride IV Infused Q24H RADHA Infusion Protocol As Directed Cefepime HCl 1,000 mg/ Sodium 50 mls @ 100 mls/hr 02/03/20 20:57 02/04/20 09:50 Chloride IV Infused Q12H RADHA Infusion Protocol Non-Formulary- 1 each 02/04/20 09:00 02/04/20 08:34 Levothyroxine 50mcg PO 1 each DAILY RADHA Administration Ondansetron HCl 4 mg 02/04/20 09:42 02/04/20 09:49 Zofran IVP 4 mg Q4H PRN Administration NAUSEA AND VOMITING PFSH Acute PFSH: Medical History (Updated 02/03/20 @ 21:22 by Mohan Mccarty MD) Fibromyalgia Hypothyroidism Nicotine dependence Osteomyelitis of right knee region Rheumatoid arthritis S/P ORIF (open reduction internal fixation) fracture Surgical History Status post hip surgery Right intertrochanteric hip fracture 06/30 Family History Other Arthritis Social History Smoking and tobacco status: current every day smoker cigarettes Packs smoked per day: 0.5 Alcohol intake: never Substance/Drug Use: never Housing: House Vitals/I&O/Wt Last Vital Signs Temp 98.2 F 02/04/20 07:51 Pulse 71 02/04/20 07:51 Resp 18 02/04/20 07:51 BP 100/51 02/04/20 07:51 Pulse Ox 92 02/04/20 07:51 02/03/20 02/04/20 02/04/20 22:59 06:59 14:59 Intake Total 786.667 / 513.810 0168 / 1640 Output Total 400 / 400 Balance 786.667 / 786.667 -400 / 434.880 8016 / 1640 Weight last 48 hrs Weight 115 lb Physical Exam Const: COMMON NORMALS: no acute distress, average body habitus, patient oriented x3 and alert GENERAL APPEARANCE: cooperative and comfortable ORIENTATION/CONSCIOUSNESS: Yes awake HENMT: COMMON NORMALS: normocephalic and atraumatic HEAD & SCALP: normocephalic and atraumatic Eye: GENERAL EYE: appearance normal, both eyes and all related structures Chest: COMMONS NORMALS: normal inspection of the chest Resp: COMMON NORMALS: normal respiratory effort EFFORT & INSPECTION: Yes able to speak in complete sentences and Yes symmetric chest movement Extremity: GENERAL: Yes normal exam except as noted RIGHT LOWER EXTREMITY: Yes knee joint (Of erythema or significant swelling. She remains unchanged from her normal exam. She has chronic pain in this knee likely secondary to osteopenia, loose hardware, and degenerative osteoarthritic change.) LEFT LOWER EXTREMITY: Yes hip joint Left hip: Yes inspection (There is no erythema. There is no swelling.), Yes palpation (There is no tenderness to palpation.), Yes ROM (Range of motion is painful in the groin area. It is tender along the abductors.) and Yes neurovascular exam (Intact) Neuro: COMMON NORMALS: patient oriented x3 SENSORIUM/ORIENTATION: Yes alert Psych: COMMON NORMALS: mental status grossly normal APPEARANCE: Yes grossly normal ATTITUDE: Yes calm and Yes engaged ATTENTION/CONCENTRATION: Yes attention grossly intact Skin: COMMON NORMALS: no rashes or lesions noted GENERAL SKIN EXAM: no rashes or lesions noted Data Imaging^: MR right lower extremity: My impression: There is significant artifact from the patient's distal hardware. There is no evidence of soft tissue swelling or effusion about the knee. There is no evidence of osteomyelitis, however, this cannot be ruled out based upon the study. Xray Ortho: I personally reviewed and interpreted this imaging study as follows: My impression: I have reviewed the imaging that the patient had upon admission. This includes the left hip, the right hip, and the right knee. The right knee demonstrates what appears to be osteopenia with potential hardware loosening. Once again, there is no apparent soft tissue swelling. The right hip demonstrates a gamma nail in good position with no evidence of complication. The left hip is felt to be normal with no evidence of fracture, dislocation, or other reason to account for the patient's severe pain. A&P Assessment and plan (1) Acute pain of left hip: The patient presents to the emergency room with acute pain in her left hip. She is under work-up for right knee issues as well. The patient denies any injury or trauma to the left hip. She does have a diagnosis of rheumatoid arthritis. Imaging studies are negative, but MRI is pending. In reviewing the MRI of the opposite lower extremity, the left hip is visualized on only a couple of views. There is no obvious effusion or soft tissue inflammation about this hip. We will await the MRI of the left hip specifically. Status: Acute (2) Knee pain: Patient has been worked up in the office for knee pain. She most recently had a bone scan which was read initially as osteomyelitis. In discussion with the radiologist, this may indeed just be loose hardware with osteopenia. The patient was having consideration for total knee arthroplasty. We will continue to work-up her right knee pain. The MRI demonstrates no evidence of soft tissue swelling or inflammation. Therefore, this does not appear to be specifically osteomyelitis of the medial femoral condyle. Status: Acute (3) Femoral distal fracture: Status: Acute (4) Status post hip surgery: Status: Resolved Consult Attestations Medical Necessity Statement: Patient is undergoing work-up for multiple issues. She was diagnosed from bone scan with osteomyelitis of the right knee, however, her physical findings do not correlate with this. The recent MRI does not show soft tissue swelling or localized effusion, but the bone is unable to be adequately assessed secondary to metal artifact. Patient will require ongoing hospital care until she is ambulatory. Coding Level of Care Code Acute Glue Machine Operator for Diana Shahid Diagnoses Acute pain of left hip M25.552 Knee pain M25.569 Femoral distal fracture S72.409A Status post hip surgery Z98.890
--- NOTE | 2020-02-04 14:08 | P.PN_ITS ---
Subjective Subjective: Interval history: This morning patient states that she is doing significantly better, she was able to ambulate to the bathroom, no hip pain on the left with palpation, no fevers, no chills, no nausea, no vomiting, no back pain, no dysuria, no urinary or bowel incontinence, no saddle or perianal anesthesia Vitals/I&O/Wt Last Vital Signs Temp 98.2 F 02/04/20 07:51 Pulse 71 02/04/20 07:51 Resp 18 02/04/20 07:51 BP 100/51 02/04/20 07:51 Pulse Ox 92 02/04/20 07:51 02/03/20 02/04/20 02/04/20 22:59 06:59 14:59 Intake Total 786.667 / 288.619 7596 / 1640 Output Total 400 / 400 Balance 786.667 / 786.667 -400 / 172.839 8165 / 1640 Weight last 48 hrs Weight 52.163 kg Physical Exam Const: COMMON NORMALS: no acute distress and patient oriented x3 HENMT: COMMON NORMALS: normocephalic HEAD & SCALP: normocephalic Neck/C-Spine: COMMON NORMALS: no JVD Resp: COMMON NORMALS: normal respiratory effort, No retractions, No use of accessory muscles and clear to auscultation bilaterally AUSCULTATION: clear to auscultation bilaterally Cardio: COMMON NORMALS: no JVD, regular rate, regular rhythm, S1 normal heart sound present and S2 normal heart sound present RATE: regular rate RHYTHM: regular rhythm HEART SOUNDS: S1 normal heart sound present and S2 normal heart sound present GI: COMMON NORMALS: Normal to inspection, nondistended, normoactive bowel sounds present, Soft to palpation, non-tender, No hepatosplenomegaly present, no masses and no bruits PALPATION: Yes Soft to palpation and Yes No hepatosple nomegaly present Extremity: COMMON NORMALS: capillary refill normal, no clubbing, cyanosis or edema, no calf tenderness and no pedal edema Neuro: COMMON NORMALS: patient oriented x3 Psych: COMMON NORMALS: mental status grossly normal Data : 02/04/20 04:34 02/04/20 04:34 A&P Assessment and plan (1) Acute pain of left hip: Status: Acute (2) Osteomyelitis of right knee region: Status: Acute Additional A&P Information Acute left-sided hip pain Rule out septic arthritis because of history of rheumatoid arthritis I would add vancomycin and cefepime for MRSA and pseudomonal coverage because of her immunocompromised state She will need MRI of the hip this afternoon to further evaluate Dr. Scruggs has been consulted MRI screening to be done because of her screws and nails in right hip Analgesia and bowel regimen include Right knee Without active sepsis or cellulitis or bursitis or effusion on admission Bone scan had radiographic interpretation concerning for osteomyelitis I went over the case with Dr. Scruggs, went over patient's right knee MRI and bone scan with Dr. Scruggs, who was not clinically impressed Currently she is afebrile Above-mentioned antibiotic regimen would cover her adequately for now, but as per discussion with Dr. Leyva osteomyelitis fairly unlikely Rheumatoid arthritis She takes methotrexate weekly with folic acid hold for now Full code DVT prophylaxis would avoid anticoagulation in case she would need hip joint arthrocentesis Cardiac diet Attestations Medical Necessity Statement*: Patient requires continued hospitalization for a cute left hip pain concerning for septic joint Coding Level of Care Code Acute Vision Impaired Teacher for g Fwd Diagnoses Acute pain of left hip M25.552 Osteomyelitis of right knee region M86.9
--- NOTE | 2020-02-04 14:30 | MR_ITS ---
WS: [id number] MRI pelvis and LEFT hip, with and without contrast. HISTORY: LEFT hip pain, possible septic arthritis. Multiplanar, multisequence imaging is performed through the pelvis and LEFT hip with and without cont rast. No fracture or marrow signal abnormality. There is no marrow edema. There is a small joint effusion a t the LEFT hip which is slightly greater than the RIGHT. There is no enhancement of the synovium or t he joint fluid. No significant narrowing of the hip joint. The adjacent soft tissues and muscles are negative. Small amount of free fluid is noted in the pelvis. MR/MR hip LT wo/w con [id number] IMPRESSION: 1. Small joint effusion at the LEFT hip with no enhancement. 2. No fracture or marrow edema. 3. No synovial enhancement or soft tissue edema.
--- NOTE | 2020-02-04 16:58 | PC.NURSE ---
MRI Pt taken to MRI via EMS. MRI called this nurse stating pt was unable to lie still d/t pain and nausea. This nurse took pt 2 mg PO Dilaudid and 4 mg IVP Zofran. refinish technician informed this nurse pt's IV was not working and started a new IV. Pt was comfortable when this nurse left MRI.
[2020-02-05 00:09] VITALS: BP 105/61; PULSE 72; RESP 13; TEMP 37.2; O2SAT 94
[2020-02-05] MEDS: acetaminophen 325 mg Tablet 650 MG PO ×2 (02:09→08:42)
[2020-02-05 03:46] LABS: Basophils % 0.4 %; Eosinophils # 0.1 10^3/uL (0.0-0.8); Eosinophils % 1.2 %; Hematocrit 26.3 % (37.0-47.0); Hemoglobin 8.9 g/dL (11.5-15.3); Lymphocytes # 1.6 10^3/uL (0.8-4.8); Mean Corpuscular HGB Conc 33.8 g/dL (30.0-36.0); Mean Corpuscular Hemoglobin 33.7 pg (28.0-34.0); Mean Corpuscular Volume 99.6 fL (81-99); Mean Platelet Volume 10.2 fL (7.4-10.4); Monocytes # 0.5 10^3/uL (0.2-0.9); Monocytes % 5.1 %; Neutrophils # 7.1 10^3/uL (1.8-7.7); Nucleated Red Blood Cells % 0 %; Platelet Count 100 10^3/cmm (130-400); Red Blood Count 2.64 10^6/uL (4.1-5.3); Red Cell Distribution Width 14.2 % (12.1-15.1); White Blood Count 9.3 10^3/uL (4.0-10.0)
[2020-02-05 04:00] VITALS: BP 119/59; PULSE 65; RESP 14; TEMP 37.2; O2SAT 93
[2020-02-05 04:16] LABS: Alanine Aminotransferase 17 U/L (0-33); Albumin Level 2.8 g/dL (3.5-5.2); Alkaline Phosphatase 149 IU/L (35-105); Anion Gap 12.5 (5-19); Aspartate Amino Transferase 24 U/L (0-32); Blood Urea Nitrogen 20 mg/dL (8-23); Calcium 8.1 mg/dL (8.5-10.5); Carbon Dioxide 24 mmol/L (22-29); Chloride 104 mmol/L (98-107); Globulin 2.9 g/dL (1.3-4.6); Glucose 117 mg/dL (65-115); Osmolality Calculated 282 mOsm/kg (285-295); Potassium 3.5 mmol/L (3.5-5.1); Sodium 137 mmol/L (136-145); Total Bilirubin 0.5 mg/dL (0.15-1.2); Total Protein 5.7 g/dL (6.6-8.7)
[2020-02-05] MEDS: sodium chloride 0.9% 1,000 ML 75 ML IV (06:16)
[2020-02-05 08:00] VITALS: BP 111/70; PULSE 64; RESP 12; TEMP 37; O2SAT 92
[2020-02-05] MEDS: aspirin 81 mg EC Tablet PO (08:42)
--- NOTE | 2020-02-05 11:17 | PC.CHAP ---
Pastoral Care Encounter/Spiritual Assessment Type of Contact [] Declined ticket counter visit [] Patient/Family/Request visit [] Outpatient visit [] Follow-up visit [] Physician referral [] Code/Alert [x] Routine visit [] Staff referral [] Actively dying [] Patient sleeping [] Family support [] [] Out of room [] Palliative care [] [] Receiving care in room [] Pre-surgical visit [] Trauma [] Long length of stay [] ICU visit [] Other: Relational/Emotional Strength [] Patient feels connected with others/family/visitors/staff [] Distress [] Loneliness/isolation [] Abandonment Spirituality of Patient [] Person of Daisha [] Attends Buddhist of their Daisha [] Believes in Prayer [] Reads Bible or Methodist materials [] There are Spiritual issues to be addressed Negative Turner Apprentice Interventions [x] Prayer [x] Active listening [x] Non-anxious presence [x] Spiritual/emotional support [] Crisis/trauma care [] Spiritual counseling [] Bereavement support [] Provided bereavement packet [] Provided Bible/devotional materials [] Provided toy/stuffed animal, coloring book to patient or family member [] Provided Communion [] Anointing/Reeder [] Salvation [x] Completed spiritual assessment [] Other: Impact on Illness or Injury [] Angry [] Fearful [] Anxious [] Often cries [] Exhaustion [] Unable to work [] Unable to attend roman catholic [] Unable to walk/stand [] Unable to read [] Unable to drive [] Unable to eat/drink [] Unable to sleep [] Unable to be with family [] Patient intubated [] Other: Summary patinet feeling better Time spent with patient 10 min
--- NOTE | 2020-02-05 11:45 | PM.PN ---
Subjective Subjective: Interval history: The patient is up in a chair. She is much more comfortable with regards to her left hip. She feels that perhaps she has been over waiting this left hip secondary to her right knee pain. She is given physical therapy exercises. She will likely be discharged to home today. Medications: Reviewed: Yes Medication Review Details: The patient will be started on an anti-inflammatory per the hospitalist team. Vitals/I&O/Wt Last Vital Signs Temp 98.6 F 02/05/20 08:00 Pulse 64 02/05/20 08:00 Resp 12 02/05/20 08:00 BP 111/70 02/05/20 08:00 Pulse Ox 92 02/05/20 08:00 02/04/20 02/05/20 02/05/20 22:59 06:59 14:59 Intake Total 500 / 2380 120 / 2500 60 / 60 Output Total 450 / 450 200 / 650 Balance 50 / 1930 -80 / 1850 60 / 60 Weight last 48 hrs Weight 115 lb Physical Exam Const: COMMON NORMALS: no acute distress, average body habitus, patient oriented x3 and alert GENERAL APPEARANCE: cooperative and comfortable ORIENTATION/CONSCIOUSNESS: Yes awake HENMT: COMMON NORMALS: normocephalic and atraumatic HEAD & SCALP: normocephalic and atraumatic Eye: GENERAL EYE: appearance normal, both eyes and all related structures Chest: COMMONS NORMALS: normal inspection of the chest Resp: COMMON NORMALS: normal respiratory effort EFFORT & INSPECTION: Yes able to speak in complete sentences and Yes symmetric chest movement Extremity: GENERAL: Yes normal exam except as noted RIGHT LOWER EXTREMITY: Yes knee joint (There is still pain in the right knee joint. This is a chronic problem for her. We had planned hardware removal and a two-stage process with knee replacement to follow.) Right knee: Yes inspection (There is no erythema or drainage from the knee.) and Yes palpation (Minimal tenderness to palpation.) LEFT LOWER EXTREMITY: Yes hip joint (Patient still has tenderness with ambulation. Her pain, however, is improving. She is able to ambulate and is comfortable with consideration of going home.) Neuro: COMMON NORMALS: patient oriented x3 SENSORIUM/ORIENTATION: Yes alert Psych: COMMON NORMALS: mental status grossly normal APPEARANCE: Yes grossly normal ATTITUDE: Yes calm and Yes engaged ATTENTION/CONCENTRATION: Yes attention grossly intact Skin: COMMON NORMALS: no rashes or lesions noted GENERAL SKIN EXAM: no rashes or lesions noted Data : 02/05/20 02:50 02/05/20 02:50 A&P Assessment and plan (1) Acute pain of left hip: The left hip has been evaluated during this hospitalization. The patient is now able to ambulate with lessening hip discomfort. Physical therapy feels that she likely has overcompensated secondary to her right knee pain. She will perform physical therapy exercises and be started on an anti-inflammatory medication per the hospitalist team. Status: Acute (2) Knee pain: Patient has been worked up in the office for knee pain. Discussion is undertaken with the patient regarding definitive treatment for this right knee. Given the fact that the bone scan raised an issue of potential osteomyelitis, we will plan a hardware removal on an elective basis. We will obtain cultures at that time. We would then consider total knee arthroplasty if and when appropriate. The patient understands. She will follow-up with me mid to end of February when she is able to perform physical therapy and her left hip is improved in its symptoms. At this point, I do not believe she has osteomyelitis in the right knee. The patient understands my reasoning behind this. Status: Acute Qualifiers: Chronicity: chronic Laterality: right Qualified Code(s): M25.561 - Pain in right knee; G89.29 - Other chronic pain Attestations Medical Necessity Statement*: Patient will be discharged home today Coding Level of Care Code Acute Consulting Engineer for Diana Shahid Diagnoses Acute pain of left hip M25.552 Knee pain M25.561; G89.29 Chronicity: chronic Laterality: right
[2020-02-05 12:00] VITALS: BP 120/63; PULSE 60; RESP 18; TEMP 37.1; O2SAT 98
[2020-02-05] MEDS: TRAMadol 50 mg Tablet PO (12:10)
[2020-02-05 13:10] VITALS: BP 111/70; PULSE 64; RESP 12; TEMP 37; O2SAT 92
--- NOTE | 2020-02-05 13:34 | PM.DCS ---
Discharge Providers Date of Admission: 02/03/20 19:56 Date of Discharge: February 05, 2020 Attending Provider at Admission: Mohan Mccarty MD Attending Provider at Discharge: Marino Moran MD Primary Care Provider: CELINE Garcia Diagnoses at Discharge Discharge Diagnosis (1) Acute pain of left hip: Status: Acute (2) Knee pain: Status: Acute Qualifiers: Chronicity: chronic Laterality: right Qualified Code(s): M25.561 - Pain in right knee; G89.29 - Other chronic pain Reason for Visit Reason for Visit: lower extremity pain Hospital Course Discharge Summary: This is a 64-year-old female with a past medical history of rheumatoid arthritis, status post open reduction internal fixation of right intertrochanteric hip fracture, and supracondylar fracture of the distal femur status post open reduction internal fixation with supracondylar femoral plate who presents [facility] due to complaints of new onset left hip pain For her left hip pain, orthopedics were consulted, there were concerns for septic arthritis, her hip x-ray had no acute findings, CT of the left hip had no significant findings of septic arthritis, had MRI of the left hip which had no significant findings of septic arthritis. In addition orthopedics were not impressed with the possibility of septic joint. During my examination, patient did have significant SI joint tenderness, with pain radiation to her groin, pain in her inner thigh. Likely patient has a component of SI joint arthritis, piriformis syndrome, some component of femoral acetabular impingement, joint osteoarthritis. Patient worked with physical therapy, clinically did well, discharge home with physical therapy instructions, anti-inflammatory medications, and close follow-up with Dr. Scruggs as outpatient. On admission also there was concerns for right knee osteomyelitis, white blood cell scan, however MRI of the right knee was not impressive for Physical Exam Const: COMMON NORMALS: no acute distress and patient oriented x3 HENMT: COMMON NORMALS: normocephalic HEAD & SCALP: normocephalic Neck/C-Spine: COMMON NORMALS: no JVD Resp: COMMON NORMALS: normal respiratory effort, No retractions, No use of accessory muscles and clear to auscultation bilaterally AUSCULTATION: clear to auscultation bilaterally Cardio: COMMON NORMALS: no JVD, regular rate, regular rhythm, S1 normal heart sound present and S2 normal heart sound present RATE: regular rate RHYTHM: regular rhythm HEART SOUNDS: S1 normal heart sound present and S2 normal heart sound present GI: COMMON NORMALS: Normal to inspection, nondistended, normoactive bowel sounds present, Soft to palpation, non-tender, No hepatosplenomegaly present, no masses and no bruits PALPATION: Yes Soft to palpation and Yes No hepatosplenomegaly present Extremity: COMMON NORMALS: capillary refill normal, no clubbing, cyanosis or edema, no calf tenderness and no pedal edema Neuro: COMMON NORMALS: patient oriented x3 Psych: COMMON NORMALS: mental status grossly normal Discharge Data Data Completed and Pending: Completed Studies During Hospitalization Category Date Time Status CT angio abd aort a runof 47743 Urge nt Cat Scan 02/03/20 17:[address] lumbar spine w o con* 48113 Urgen t Cat Scan 02/03/20 17:33 Completed XR femur LT min 2 V* [id number] Stat Exams 02/03/20 13:55 Completed XR hip LT 2-3V wo /w pel* [id number] Stat Exams 02/03/20 13:55 Completed XR knee RT 4V 735 64 Routine Exams 02/04/20 09:27 [place] [address] Routine MRI 02/04/20 14:30 Completed MR lower leg RT w o con* 10920 Routi ne MRI 02/04/20 09:27 [place] [address] Stat Ultrasound 02/03/20 13:55 [place] [address] Stat Ultrasound 02/03/20 13:55 Completed Pending at discharge Category Date Time Status Complete Blood Co unt w/Auto AM LABS Lab 02/06/20 04:00 Ordered Complete Blood Co unt w/Auto AM LABS Lab 02/07/20 04:00 Ordered Comprehensive Met abolic Panel AM LA BS Lab 02/06/20 04:00 Ordered Comprehensive Met abolic Panel AM LA BS Lab 02/07/20 04:00 Ordered Vancomycin Trough Timed Lab 02/06/20 21:00 Ordered Labs from last 24 hours 02/05/20 02/05/20 02:50 02:50 WBC 9.3 RBC 2.64 L Hgb 8.9 L Hct 26.3 L MCV 99.6 H MCH 33.7 MCHC 33.8 RDW 14.2 Plt Count 100 L MPV 10.2 Neut % (Auto) 76.0 Lymph % (Auto) 17.0 [place] % (Auto) 5.1 Eos % (Auto) 1.2 Baso % (Auto) 0.4 Neut # (Auto) 7.1 Lymph # (Auto) 1.6 [place] # (Auto) 0.5 Eos # (Auto) 0.1 Baso # (Auto) 0.0 Nucleated RBC % (a uto) 0 Nucleated RBCs # 0.0 Sodium 137 Potassium 3.5 Chloride 104 Carbon Dioxide 24 Anion Gap 12.5 BUN 20 Creatinine 1.0 H GFR Calculation 56.0 L Glucose 117 H Calculated Osmolal ity 282 L Calcium 8.1 L Total Bilirubin 0.5 AST 24 ALT 17 Alkaline Phosphata se 149 H Total Protein 5.7 L Albumin 2.8 L Globulin 2.9 Vitals: Last Vital Signs Temp 98.6 F 02/05/20 13:10 Pulse 64 02/05/20 13:10 Resp 12 02/05/20 13:10 BP 111/70 02/05/20 13:10 Pulse Ox 92 02/05/20 13:10 Discharge Plan Discharge Patient Disposition: Home, Self-Care Condition: Stable Prescriptions: [place] 5-325 mg tablet 1 tab PO Q6H PRN (Reason: pain) 5 Days Qty: 20 RF: 0 ketorolac 10 mg tablet 10 mg PO Q8H PRN (Reason: hip pain) 3 Days Qty: 6 RF: 0 Continued levothyroxine 50 mcg capsule 50 mcg PO DAILY RF: 0 tramadol 50 mg tablet 100 mg PO BID PRN (Reason: Pain) RF: 0 Aspir-81 81 mg Tablet,Delayed Release (Dr/Ec) 81 mg PO DAILY RF: 0 methotrexate sodium 2.5 mg Tablet 20 mg PO Q7D RF: 0 folic acid 1 mg Tablet 1 mg PO DAILY RF: 0 Calcium 500 1 tab PO DAILY RF: 0 Vitamin B-12 1 tab PO DAILY RF: 0 Vitamin D3 1 tab PO DAILY RF: 0 Discontinued naproxen 500 mg tablet 500 mg PO BID RF: 0 Discharge Orders: Discharge Order (Routine); Ordered 02/03/20 Ordered By: Kasandra Zaidi Other Ambulatory Orders: DME: Roger (Order) Location: None Selected Ordered By: Marino Moran Referrals: Jakob [Outside] Nayla Lawson FNP [Primary Care Provider] - 02/09/20 9:30 am (You have a hospital follow up appointment with Willian on February 08 at 9:30. Nayla is out of the office that week.) Telma Scruggs MD [Physician] - 03/07/20 9:00 am (You have an appointment with Dr. Scruggs on March 07 at 9:00am) Discharge Diet: Advance as tolerated Discharge Activity: Use walker/crutches as instructed Patient Instructions: Hydrocodone/Acetaminophen (By mouth), Ketorolac (By mouth), Open Reduction and Internal Fixation of a Hip Fracture (DC), Osteomyelitis (DC), Patellofemoral Pain Syndrome (DC) Discharge Attestations Time Spent in Discharge Care*: less than 30 min Quality Metrics Clinical Quality Measures During this hospital stay, did patient experience: None Coding Level of Care Code Acute Sex Crimes Detective for Diana Fwd Diagnoses Acute pain of left hip M25.552 Knee pain M25.561; G89.29 Chronicity: chronic Laterality: right
--- NOTE | 2020-02-05 13:46 | PC.RESP ---
Smoking Cessation information and a schedule of classes to patient.
--- NOTE | 2020-02-05 13:49 | PC.OT ---
OT EVALUATION HELD PATIENT IS SCHEDULED FOR DISCHARGE HOME TODAY.
== END 2020-02-05 15:50 | disposition home or self-care (01) | DRG 556 ==
LOC: ER 19:26 → MEDSURG 21:34
PROVIDERS: Emergency Medicine; Admitting Provider Internal Medicine; PCP Nurse Practitioner Family; Visit Provider Family Medicine
DX: M25.552 Pain in left hip (principal); S72.409D Unspecified fracture of lower end of unspecified femur, subsequent encounter for closed fracture with routine healing; X58.XXXD Exposure to other specified factors, subsequent encounter; M06.9 Rheumatoid arthritis, unspecified; E03.9 Hypothyroidism, unspecified; M25.561 Pain in right knee; M79.7 Fibromyalgia; F17.210 Nicotine dependence, cigarettes, uncomplicated; G89.29 Other chronic pain; Z79.82 Long term (current) use of aspirin
CPT/HCPCS: 12345; 36415; 72131; 73502; 73552; 73564; 73718; 73723; 75635; 80048; 80053; 81001; 84145; 85025; 85651; 86140; 93926; 93971; 96375; 97110; 97161; 97530; 99282; A9579; J0131; J0692; J1170; J2270; J2405; J3370; J7030; J7050; Q9967

== ENCOUNTER → 2020-03-07 09:19 | Outpatient (BNVA) | payer MEDICAID, SELFPAY | PROVIDERS: PCP Nurse Practitioner Family; Visit Provider Specialist | DX: M25.552 Pain in left hip (principal); M25.561 Pain in right knee; G89.29 Other chronic pain | CPT/HCPCS: 73502; 73560; 73565 ==

== ENCOUNTER 2020-03-18 06:56 | Day surgery (SDC) | payer MEDICAID, SELFPAY ==
[2020-03-17 13:27] VITALS: BMI 20.5
[2020-03-18] VITALS (8 sets, daily range): BP systolic 133–147; BP diastolic 73–85; PULSE 74–92; RESP 13–20; TEMP 36.1–37.1; O2SAT 95–100
--- NOTE | 2020-03-18 | XR_ITS ---
WS: [id number] C-ARM RADIOGRAPHS RIGHT KNEE; 2 IMAGES HISTORY: OR PICS COMPARISON: None available. Intraoperative imaging of the RIGHT knee. The hardware seen in the distal femur is no longer present. XR/XR knee RT 1-2V 54065 IMPRESSION: Intraoperative imaging during hardware removal. Hardware has been completely re moved from the distal RIGHT femur.
--- NOTE | 2020-03-18 | SCC_ITS ---
Procedure Done: Removal of hardware from right supracondylar femur with cultures 1.3 seconds of fluoroscopic guidance, for a cumulative dose of 0.08 mGy, was provided to Dr. Scruggs by the radiology department. C-arm images of the RIGHT knee were saved for the patient's permanent record. [facility]STCHESTERFrankie
--- NOTE | 2020-03-18 07:01 | W.PM.OPSUD ---
Surgery/Procedure H&P Update DATE OF PROCEDURE: March 18, 2020 DATE H&P PERFORMED: 03/07/20 H&P UPDATE INFORMATION: I have reviewed H&P completed within last 30 days, I have examined patient prior to procedure, No changes to prior documentation and H&P is in [facility] EMR on date indicated PREOP DIAGNOSIS: Painful Hardware Right Knee PLANNED PROCEDURE: Operation Date: 03/18/20 08:05 Proposed Procedures p Deep Hardware Removal 96890 T84.84XA(Right) - Telma Scruggs MD Related Problem List Diagnoses (1) Painful orthopaedic hardware:
[2020-03-18] MEDS: CELEcoxib 200 mg Capsule 400 MG PO (07:24)
[2020-03-18] MEDS: sodium chloride 0.9% 1,000 ML 30 ML IV (07:24)
--- NOTE | 2020-03-18 07:25 | P.ANESASSM_ITS ---
Pre-Anesthetic Assessment Pre-Anesthetic Assessment: Height/Weight: Height 1.57 m Weight 50.802 kg Temp Pulse Resp BP Pulse Ox 98.7 F 92 18 133/80 95 03/18/20 07:13 03/18/20 07:13 03/18/20 07:13 03/18/20 07:13 03/18/20 07:13 Preop Diagnosis: Painful Hardware Right Knee Proposed Procedure: Operation Date: 03/18/20 08:05 Proposed Procedures p Deep Hardware Removal 95797 T84.84XA(Right) - Telma Scruggs MD Familial anesthetic complications: PONV on one occassion Was Beta Stefani ta lawrence within 24 hours: N/A Last intake: Intake Last Liquid Date 03/17/20 Last Liquid Time 21:30 Last Solid Date 03/17/20 Last Solid Time 21:30 Social: Social History: Tobacco Exam: Pre-Anes Outpt Exam: alert, oriented x 3, clear to auscultation bilaterally and regular rate & rhythm Airway: Cervical ROM: WNL MP: 2 Dentition: False Metabolic: Metabolic: Thyroid Musc/skel: Musc/skel: Fibromyalgia and RA (does not affect neck according to patient) Anesthetic Plan: ASA status: 2 Anesthesia: General Risk of > 500 ml blood loss (7ml/kg in children): No Meds/Allergies Current Medications: Current Medications Generic Name Dose Route Start Last Admin Trade Name Freq PRN Reason Stop Dose Admin Sodium Chloride 1,000 mls @ 30 ml s/hr 03/18/20 07:00 03/18/20 07:24 Sodium Chloride 0.9% IV 03/19/20 06:59 30 mls/hr .Q24H RADHA Administration PFSH Anesthesia PFSH: Medical History Fibromyalgia Hypothyroidism Nicotine dependence Osteomyelitis of right knee region Rheumatoid arthritis S/P ORIF (open reduction internal fixation) fracture Surgical History Status post hip surgery Right intertrochanteric hip fracture 06/30 Family History Other Arthritis Social History Smoking and tobacco status: current every day smoker cigarettes Packs smoked per day: 0.5 Alcohol intake: never Housing: House Data Anesthesia Cardiac Studies: No Data to Display
[2020-03-18 07:42] LABS: Basophils # 0.1 10^3/uL (0.0-0.1); Eosinophils # 0.3 10^3/uL (0.0-0.8); Eosinophils % 3.2 %; Hematocrit 31.4 % (37.0-47.0); Hemoglobin 10.7 g/dL (11.5-15.3); Lymphocytes # 1.8 10^3/uL (0.8-4.8); Lymphocytes % 19.9 %; Mean Corpuscular HGB Conc 34.1 g/dL (30.0-36.0); Mean Corpuscular Hemoglobin 33.5 pg (28.0-34.0); Mean Corpuscular Volume 98.4 fL (81-99); Mean Platelet Volume 9.2 fL (7.4-10.4); Monocytes # 0.4 10^3/uL (0.2-0.9); Neutrophils # 6.49 10^3/uL (1.8-7.7); Neutrophils % 71.5 %; Nucleated Red Blood Cells % 0 %; Platelet Count 202 10^3/cmm (130-400); Red Blood Count 3.19 10^6/uL (4.1-5.3); Red Cell Distribution Width 15.2 % (12.1-15.1); White Blood Count 9.1 10^3/uL (4.0-10.0)
[2020-03-18 08:10] LABS: Alanine Aminotransferase 21 U/L (0-33); Albumin Level 3.8 g/dL (3.5-5.2); Alkaline Phosphatase 219 IU/L (35-105); Anion Gap 12.1 (5-19); Aspartate Amino Transferase 33 U/L (0-32); Blood Urea Nitrogen 17 mg/dL (8-23); Calcium 9.7 mg/dL (8.5-10.5); Carbon Dioxide 25 mmol/L (22-29); Chloride 103 mmol/L (98-107); Globulin 3.2 g/dL (1.3-4.6); Glomerular Filtration Rate 50.2 mL/min (90-130); Glucose 119 mg/dL (65-115); Osmolality Calculated 280 mOsm/kg (285-295); Potassium 4.1 mmol/L (3.5-5.1); Sodium 136 mmol/L (136-145); Total Bilirubin 0.6 mg/dL (0.15-1.2)
[2020-03-18] MEDS: ceFAZolin 1,000 mg SDV 1000 MG IRRIGATION (08:31)
--- NOTE | 2020-03-18 08:40 | SUR.OPER ---
Pt's Enzo updated on surgery progress and pt status via his cell phone.
[2020-03-18] MEDS: vancomycin 1,000 MG in sodium chloride 0.9% 250 ML 250 MG IV ×2 (09:55→10:00)
[2020-03-18] MEDS: vancomycin 1,000 MG SDV 1000 MG XX (09:55)
--- NOTE | 2020-03-18 10:29 | PM.OP ---
Operative Report Date of procedure: March 18, 2020 Pre-op Diagnosis: Painful Hardware Right Knee Post-op diagnosis: same Post-op Findings: Intact bone with no evidence of fracture. Procedure Done: Removal of hardware from right supracondylar femur with cultures Specimens removed/disposition: Plate was removed and sent to pathology. Surgeon: Telma Scruggs Sales Order Processor: [facility] OR technicians Anesthesia: General (Per LMA) Estimated blood loss (mL): 100 IV fluids (mL): 800 Urine output (mL): 0 Complications: Screw van cdl driver broke off in most proximal screw. Condition: stable Disposition: PACU Brief History: This 64-year-old woman underwent prophylactic fixation of a proximal femoral supracondylar fracture in March 2018. She now has pain in the knee and is considering total knee arthroplasty. Also, there was some concern that there was lucency about the screws consistent either with osteopenia or osteomyelitis. Therefore, the patient was scheduled for hardware removal. Cultures were to be obtained. Procedure: Patient was brought to the operating theater. She was transferred to the operating room table and subsequently administered a general anesthetic per LMA. Following administration of adequate anesthesia, the patient's right hip was elevated with a bump and she was supine otherwise. Fluoroscopy was available throughout the surgical procedure. The patient's right lower extremity was then prepped and draped in usual fashion utilizing DuraPrep. It was draped free. Following prepping and draping a surgical pause was performed. At the time of surgical pause, we identified the site and side of surgery. We also identified the patient and preoperative surgical markings. Confirmation was made of equipment availability. Following the surgical pause, the previous surgical incision was opened. The incision was along the patient's lateral knee and thigh and allowed access to the previous internal fixation. The plate was a 4 hole Abhinav right distal lateral femoral plate. Dissection continued through skin and soft tissues using a scalpel, and hemostasis was obtained using electrocautery. The lateral fascia rodrigo was identified and incised longitudinally. We dissected distally to allow access to the plate over the distal femur and lateral femoral condyle. Proximally, we dissected as necessary to allow access to the 4-hole plate. Electrocautery was utilized to control bleeding as necessary. Upon initial entry, the fluid over the plate was sent for culture. Once the plate was removed, further cultures were obtained. The distal screws were removed first, these were removed uneventfully. The remainder of the screws were also removed uneventfully aside from the proximalmost screw. The proximalmost screw was unable to be removed in a conventional fashion. The screwdriver broke off while attempting to remove the screw. This required use of the [place]. This was a locking screw, and subsequently, we had to cut through the plate to allow the screw to be removed. We were able to remove the most proximal aspect of the plate and screw at the same time utilizing vice children's tutor nursery once the distal plate was removed. The membrane between the plate and bone was then removed as well. Intramedullary cultures were obtained. Following this, fluoroscopy was used to confirm all hardware had been removed. Attention was directed to closure. Closure was accomplished with 0 Vicryl in the fascial tissues. The subcutaneous tissues were closed with 2-0 Monocryl. The skin was closed with a running 3-0 Monocryl. This was covered with Dermabond, Steri-Strips, Telfa, and Tegaderm. An Maxi wrap was then placed. The patient will be discharged to home. There were no complications. Specimens were submitted to [facility] for culture and Gram stain. Associated Problem List Diagnoses (1) Painful orthopaedic hardware:
--- NOTE | 2020-03-18 10:41 | SUR.PHASEI ---
1041- ORAL AIRWAY OUT, SIMPLE MASK AT 6LPM, SAT 100%
== END 2020-03-18 12:10 | disposition home or self-care (01) ==
PROVIDERS: PCP Nurse Practitioner Family; Visit Provider Specialist
PROC: (CPT 20680; principal; 2020-03-18 08:05)
DX: T84.84XA Pain due to internal orthopedic prosthetic devices, implants and grafts, initial encounter (principal); M79.7 Fibromyalgia; M06.9 Rheumatoid arthritis, unspecified; E03.9 Hypothyroidism, unspecified; F17.210 Nicotine dependence, cigarettes, uncomplicated; Z79.82 Long term (current) use of aspirin
CPT/HCPCS: 20680; 12345; 36415; 73560; 76000; 80053; 85025; 87070; 87075; 87205; 96365; J0131; J0690; J1100; J2405; J2704; J3010; J3370; J3490; J7030; J7050

== ENCOUNTER → 2020-04-04 14:04 | Outpatient (BNVA) | payer MEDICAID, SELFPAY | PROVIDERS: PCP Nurse Practitioner Family; Visit Provider Specialist | DX: T84.84XA Pain due to internal orthopedic prosthetic devices, implants and grafts, initial encounter (principal); Y83.2 Surgical operation with anastomosis, bypass or graft as the cause of abnormal reaction of the patient, or of later complication, without mention of misadventure at the time of the procedure | CPT/HCPCS: 73560; 73565 ==

== ENCOUNTER → 2020-04-21 15:34 | Outpatient (BNVA) | payer MEDICAID, SELFPAY | PROVIDERS: PCP Nurse Practitioner Family; Visit Provider Specialist | DX: T84.84XA Pain due to internal orthopedic prosthetic devices, implants and grafts, initial encounter (principal); Y79.2 Prosthetic and other implants, materials and accessory orthopedic devices associated with adverse incidents | CPT/HCPCS: 73560; 73565 ==

== ENCOUNTER → 2020-06-29 14:25 | Outpatient (BNVA) | payer MEDICAID, SELFPAY | PROVIDERS: PCP Nurse Practitioner Family; Visit Provider Specialist | DX: M17.31 Unilateral post-traumatic osteoarthritis, right knee (principal); T84.84XA Pain due to internal orthopedic prosthetic devices, implants and grafts, initial encounter; X58.XXXA Exposure to other specified factors, initial encounter | CPT/HCPCS: 73560; 73565 ==

== ENCOUNTER → 2020-07-21 13:00 | Outpatient (BNVA) | payer MEDICAID, SELFPAY | PROVIDERS: PCP Nurse Practitioner Family; Visit Provider Specialist | DX: M17.31 Unilateral post-traumatic osteoarthritis, right knee (principal); T84.84XA Pain due to internal orthopedic prosthetic devices, implants and grafts, initial encounter | CPT/HCPCS: 87635 ==

== ENCOUNTER 2020-07-26 12:15 | Inpatient (IN) | payer MEDICAID, SELFPAY ==
[2020-07-21 13:08] VITALS: BMI 21.0
[2020-07-21 13:38] LABS: Basophils # 0.1 10^3/uL (0.0-0.1); Basophils % 0.9 %; Eosinophils # 0.2 10^3/uL (0.0-0.8); Hematocrit 29.5 % (37.0-47.0); Hemoglobin 10.3 g/dL (11.5-15.3); Lymphocytes # 1.3 10^3/uL (0.8-4.8); Mean Corpuscular HGB Conc 34.9 g/dL (30.0-36.0); Mean Corpuscular Hemoglobin 33.9 pg (28.0-34.0); Monocytes # 0.3 10^3/uL (0.2-0.9); Monocytes % 3.8 %; Neutrophils # 4.76 10^3/uL (1.8-7.7); Nucleated Red Blood Cells % 0 %; Platelet Count 110 10^3/cmm (130-400); Red Blood Count 3.04 10^6/uL (4.1-5.3); Red Cell Distribution Width 15.8 % (12.1-15.1); White Blood Count 6.6 10^3/uL (4.0-10.0)
--- NOTE | 2020-07-21 14:13 | ANES.PREANE2 ---
Pre-Anesthetic Assessment Pre-Anesthetic Assessment: Height/Weight: Height 1.57 m Weight 52.163 kg Preop Diagnosis: Posttraumatic degenerative osteoarthritis right knee Proposed Procedure: Operation Date: 07/26/20 10:25 Proposed Procedures p right Total Knee Arthroplasty 18602 m17.10(Right) - Telma Scruggs MD Familial anesthetic complications: None Social: Social History: Tobacco and No alcohol Exam: Pre-Anes Outpt Exam: alert, oriented x 3, clear to auscultation bilaterally and regular rate & rhythm Airway: Cervical ROM: WNL MP: 1 Dentition: False (uppers) Metabolic: Metabolic: Thyroid Musc/skel: Musc/skel: Fibromyalgia and RA Comments: no steroid use for RA in last year Anesthetic Plan: ASA status: 3 Anesthesia: Regional (specify below) Other: patient ok with spinal Risk of > 500 ml blood loss (7ml/kg in children): No PFSH Anesthesia PFSH: Medical History Fibromyalgia Hypothyroidism Nicotine dependence Rheumatoid arthritis S/P ORIF (open reduction internal fixation) fracture Surgical History Status post hip surgery Right intertrochanteric hip fracture 06/30 Family History Other Arthritis Social History Smoking and tobacco status: current every day smoker cigarettes Packs smoked per day: 0.5 Alcohol intake: never Housing: House Data Anesthesia CBC & Chem 7: 07/21/20 13:28 Other Labs: Laboratory Results - last 48 hr 07/21/20 13:28 WBC 6.6 RBC 3.04 L Hgb 10.3 L Hct 29.5 L MCV 97.0 MCH 33.9 MCHC 34.9 RDW 15.8 H Plt Count 110 L MPV 9.0 Neut % (Auto) 72.0 Lymph % (Auto) 20.0 [place] % (Auto) 3.8 Eos % (Auto) 3.0 Baso % (Auto) 0.9 Neut # (Auto) 4.76 Lymph # (Auto) 1.3 [place] # (Auto) 0.3 Eos # (Auto) 0.2 Baso # (Auto) 0.1 Nucleated RBC % (auto) 0 Nucleated RBCs # 0.0 Cardiac Studies: No Data to Display
[2020-07-21 15:09] LABS: Add Urine Microscopic? NO
[2020-07-21 15:43] LABS: Bilirubin Urine 1+ (Negative); Blood Urine Neg (Negative); Glucose Urine UA Norm (Normal); Ketones Urine Negative (Negative); Leukocyte Esterase Urine Negative (Negative); Nitrate Urine Negative (Negative); Protein Urine Neg (Negative); Specific Gravity, Urine 1.025 (1.005-1.030); Urine Appearance Clear (CLEAR); Urine Color Yellow (Yellow); Urobilinogen Urine Norm (Negative); pH Urine 5 (5-7)
[2020-07-26] VITALS (13 sets, daily range): BP systolic 105–155; BP diastolic 60–95; PULSE 58–79; RESP 14–18; TEMP 36.3–36.7; O2SAT 94–100
[2020-07-26] MEDS: CELEcoxib 200 mg Capsule 400 MG PO (06:10)
[2020-07-26] MEDS: sodium chloride 0.9% 1,000 ML 30 ML IV (06:10)
[2020-07-26] MEDS: midazolam 1 mg/mL INJ 2 mL 2 MG IVP (06:16)
--- NOTE | 2020-07-26 06:27 | P.ANESUD_ITS ---
Pre-Anesthetic Update Pre-Anesthetic Assessment: Date of Surgery/Procedure: 07/26/20 Preop Martha gnosis: Painful Hardware Right Knee Proposed Procedure: Operation Date: 07/26/20 07:00 Proposed Procedures p right Total Knee Arthroplasty 49241 m17.10(Right) - Telma Scruggs MD Any changes to Pre-Anesthetic Assessment?: No Last Intake: Intake Last Liquid Date 07/25/20 Last Liquid Time 22:00 Last Solid Date 07/25/20 Last Solid Time 22:00 Vitals: Temperature 97.4 F L 07/26/20 06:00 Temperature Source Temporal Artery S can 07/26/20 06:00 Pulse Rate 79 07/26/20 06:00 Pulse Rhythm 07/26/20 06:00 Pulse Strength 3+ Normal 07/26/20 06:00 Respiratory Rate 18 07/26/20 06:00 Blood Pressure 155/95 07/26/20 06:00 Blood Pressure Nataliya n 115 07/26/20 06:00 Pulse Oximetry 100 07/26/20 06:00 Oxygen Delivery Me thod 07/26/20 06:00 Exam: Pre-Anes Outpt Exam: alert, oriented x 3, clear to auscultation bilaterally and regular rate & rhythm Cardiac Studies: No Data to Display
--- NOTE | 2020-07-26 06:27 | ANES.PROC ---
Anesthesia Procedures Procedure/Date: 07/26/20 Nerve Block ^: Nerve Block 1: Main Anesthesia: general anesthesia Time Out Performed: Yes Consent: requested by attending/covering physician and from patient Nerve block location: adductor canal (R) Anesthesia monitors applied: pulse oximetry, EKG, BP cuff and oxygen Nerve block position: supine Anesthetic Used: ropivicaine 0.5% and with decadron (4 mg) Amount of anesthesia used (mL): 30 Ultrasound used to: recognize landmarks Nerve Stimulator Used?: No Interscalene/Femoral BLK: 4 stimuplex 21 g needle used for position and inplane approach, visualize local anesthetic spread and no vascular puncture identified Injection: neg aspiration of heme Patient Tolerated Procedure: well and no complications Complications: none
--- NOTE | 2020-07-26 06:56 | W.PM.OPSUD ---
Surgery/Procedure H&P Update DATE OF PROCEDURE: July 26, 2020 DATE H&P PERFORMED: 06/29/20 H&P UPDATE INFORMATION: I have reviewed H&P completed within last 30 days, I have examined patient prior to procedure, No changes to prior documentation and H&P is in [facility] [place] [facility] EMR on date indicated PREOP DIAGNOSIS: Painful Hardware Right Knee with post traumatic osteoarthritis PLANNED PROCEDURE: Operation Date: 07/26/20 07:00 Proposed Procedures p right Total Knee Arthroplasty 46780 m17.10(Right) - Telma Scruggs MD Related Problem List Diagnoses (1) Post-traumatic osteoarthritis of right knee:
[2020-07-26] MEDS: vancomycin 1,000 MG in sodium chloride 0.9% 250 ML 167 MG IV (06:57)
[2020-07-26] MEDS: vancomycin 1,000 MG SDV 1000 MG XX (08:12)
[2020-07-26] MEDS: ceFAZolin 1,000 mg SDV 4000 MG IRRIGATION (08:13)
--- NOTE | 2020-07-26 08:55 | SUR.OPER ---
Family Notified Of Patient's Status Via Phone.
--- NOTE | 2020-07-26 09:11 | XR_ITS ---
WS: [id number] XR knee RT 1-2V 92343 REASON FOR EXAM: SURGICAL FINDINGS: 2 lateral views of the right knee. 2. Component right knee arthroplasty. Prosthetic parts are in proper position and alignment. There is significant decrease in bone density. No focal bony abnormality. XR/XR knee RT 1-2V 96657 IMPRESSION: Right knee arthroplasty as above.
--- NOTE | 2020-07-26 09:11 | XR_ITS ---
WS: [id number] XR knee RT 1-2V 57625 REASON FOR EXAM: SURGICAL PORTABLE -REPOSITION FINDINGS: 2 lateral views of the right knee. 2. Component right knee arthroplasty. The components are in proper position and alignment. There is significantly decreased bony density. No focal bony abnormality identified. XR/XR knee RT 1-2V 56977 IMPRESSION: Right knee arthroplasty as above.
--- NOTE | 2020-07-26 11:02 | SUR.OPER ---
pt resting in bed, pedal pulse noted on right foot.
--- NOTE | 2020-07-26 11:08 | XR_ITS ---
WS: [id number] XR knee RT 1-2V 18766 REASON FOR EXAM: Status post total knee arthroplasty revision FINDINGS: Preoperative examination demonstrated 2 component right knee arthroplasty. In addition there was frag mentation of the inferior patella (not included in the report on the preoperative exam) which was no t seen on the examination of 06/29/2020. There were also multiple bone fragments fragments seen betwe en the inferior patella and the tibial tuberosity. Postoperatively there is surgical alteration of the articular surface of the patella and the multiple bony fragments seen relating to the inferior patella extending to the tibial tuberosity have been re moved in entirety. XR/XR knee RT 1-2V 33868 IMPRESSION: Postsurgical changes involving the right patella as above.
--- NOTE | 2020-07-26 11:08 | PM.PACU ---
PACU note Post-Anesthesia Exam: awake and vital signs stable Disposition: admitted
--- NOTE | 2020-07-26 11:09 | P.OP_ITS ---
Operative Report Date of procedure: July 26, 2020 Pre-op Diagnosis: Posttraumatic osteoarthritis following distal femur fracture right knee with severe varus deformity and osteopenic bone Post-op diagnosis: same Post-op Findings: Severe osteopenia throughout the distal femur Procedure Done: Revision right total knee arthroplasty following distal femoral fracture with subsequent hardware removal. Implants: [employer] total knee system utilizing the following implants: A size 3 triathlon cemented universal tibial baseplate with a size B symmetric cone augment and a size 15 mm by 50 mm cemented stem; a size 3 triathlon total stabilizer femoral component for the right side, cemented, with a 25 mm stem steam clean machine operator and a 14 mm x 100 mm fluted stem; a size 29 x 9 mm cemented asymmetric patella Specimens removed/disposition: Bone, disposed of Pathology: none sent (Cultures were sent of synovial fluid) Surgeon: Telma Scruggs Salon Supervisor: [facility] operating room technicians Anesthesia: MAC (With spinal anesthetic and preoperative block) Estimated blood loss (mL): 100 Tourniquet time (min): 133 Tourniquet time: At 250 mmHg IV fluids (mL): 2,000 Urine output (mL): 1,000 Complications: None Findings: Severe osteopenia and posttraumatic osteoarthritis right knee with bone loss medial tibial plateau and compromise of distal femur secondary to previous hardware and subsequent removal Condition: stable Disposition: PACU (Then to floor for postoperative rehabilitation and pain management) Brief History: This 64-year-old woman had a distal femur fracture which was treated with a supracondylar femoral plate distally. Subsequently, she had changes about the hardware that were concerning for possible osteomyelitis. The hardware was removed and cultures were obtained. There was no evidence of osteomyelitis, fortunately. The patient had severe osteopenia, and she had progressive deformity of this lower extremity. She had progressive osteoarthritis posttraumatic. After discussion, the patient wished to proceed with revision knee arthroplasty. This was scheduled for her. Risks and complications were discussed with her. Procedure: The patient was brought to the operating theater, and after undergoing adequate spinal anesthesia with MAC and preoperative regional block, the right lower extremity was prepped and draped in usual fashion following placement of a tourniquet high on the leg. The leg was then draped free with the prepping accomplished with DuraPrep. Following prepping and draping, the leg was exsanguinated, and the tourniquet was elevated to 250 mmHg for total tourniquet time of 133 minutes. Prior to elevation of the tourniquet the following exposure of the site of surgery, a surgical pause was performed. At the time of the surgical pause we confirmed the site and side of surgery. Additionally, we confirmed the appropriate and timely administration of preoperative antibiotics. The availability of equipment was confirmed, and the patient's identity was verbalized as well. Following the surgical pause, an incision was made centering over the patella continuing proximally and distally as necessary to allow access to the knee joint. Dissection continued through skin and soft tissues using a scalpel. Hemostasis was obtained using electrocautery. The midline skin incision was followed by a median parapatellar arthrotomy. The leg was extended and the patella was everted. Following this the leg was returned to flexed position. Cultures were taken at this time of the synovial fluid. Also, there was a synovectomy performed. There was actually evidence of small metal debris within the knee as well. The distal femur was exposed and a drill hole was made in this for placement of the distal femoral jig. The distal femoral jig was set at 5? of valgus. The distal femoral cutting block was then placed in appropriate position at 8 mm of bony resection, and an puma wing was used to confirm an appropriate amount of distal femur would be resected. The distal femoral resection was accomplished. After the distal femoral resection had been accomplished the femur was measured and it measured a size 3. Anterior posterior dimension was a size 3 as well. A size 3 femoral cutting block was placed in position and we were then able to accomplish the anterior, posterior and chamfer cuts. This jig was then removed and the notch guide was placed in position. With the notch guide in appropriate position the notch was excised including resection of the anterior and posterior cruciate ligaments. This notch was to allow for the posterior stabilized femoral component. Secondary to the need for revision components, at this point, sequential reamers were placed into the distal femur. These were passed without difficulty. We wanted to bypass the distal screw holes by approximately 2 femoral diameters. Additionally, we wanted to be below the gamma nail which had been previously placed as well. We reamed to allow for a size 14 femoral stem. We had some question as to whether or not we would use of 15, however, intraoperative x-rays were obtained and it was felt that the 15 would put too much stress on the anterior cortex. Therefore, we did choose a 14 mm x 100 mm stem length. X-rays also demonstrated that we needed to have slightly increased lengths and therefore, a stem steam clean machine operator was placed on the revision femoral component as well. At this point, the femur was prepared and attention was directed to the proximal tibia. The posterior knee retractor was placed very carefully secondary to the severe osteopenia of the patient's distal femur along with medial and lateral retractors. Further resection of the menisci were accomplished as we had better visualization. A complete meniscectomy was performed both medially and laterally with care being taken to protect the popliteus. Retractors were then placed so that the proximal tibia was well visualized. A drill hole was then made in the tibia for placement of the intramedullary guide. This guide was placed to balance out the bone loss medially with appropriate retraction laterally. Laterally, we did resect approximately 9 mm of bone. Medially, we resected the medial two thirds of the tibial plateau, but there was enough bone loss along the most medial aspect of the medial tibial plateau that we had to resect cartilage and subsequently fill-in with cement. Once the jig had been placed in appropriate position, attention was directed to resection of the proximal tibia. The intramedullary guide was utilized supplemented with an extra medullary guide to assure appropriate alignment for the proximal tibial resection. The proximal tibial jig was then evaluated, pinned in position, and the proximal tibial resection was accomplished without difficulty. The jig was removed and the proximal tibia was measured. It measured a size 3. We then performed a trial reduction with a 9 mm insert into the size 3 tray. The femoral component was placed in position and the knee was placed through range of motion. We subsequently increased the height of the tibial insert from a 9 mm through 11 mm in up to 13 mm. This did require balancing with medial release. The 13 mm was chosen and with that we did have full extension. There was good stability. The tibial tray was pinned in position. We then reamed and prepared for a stem here as well. Sequential reamers were passed. We also reamed proximally for placement of a tibial cone augment. This was a size B augment. The trial reduction was then accomplished with this tibial cone augment as well as the tibial tray and we were pleased with the appearance of the prosthesis. It was at this point, we also obtained the x-ray and determined that we were pleased with the fit and position of the stems. Attention was then directed to the patella. The patella was measured with a caliper. We resected about 7 mm of the patella which left remaining approximately 13 mm. Measurements of the patella then indicated that a size asymmetric 29 mm x 9 mm was the appropriate patellar size. We then placed the jig to drill for the 3 pegs of the patella, and these drill holes were made without incident. A trial patella was then placed, and the knee was placed through range of motion. The patella was noted to track nicely without evidence of subluxation. All trial components were subsequently removed. All surfaces were copiously irrigated in preparation for cementing, this included a pin on power in the sclerotic areas of the medial tibial plateau and patella. The surfaces were then dried and a bone plug was placed into the distal femur. Cementing was accomplished with Simplex with tobramycin, 2 batches, and one speed set Simplex. This gave us excellent working time. Cement was placed initially under the tibial component, and the cone augment was pushed onto the distal tibia. Care was taken to avoid cementing of the stem. The tibia was impacted into position. Similarly the femur was impacted into position after cement was laid onto the distal femoral component avoiding cementing the stem. All components were impacted into position and excess cement was removed from around both components. The tibial tray was placed during the cementing process so that we could place the knee in extended position while the cement was allowed to fully cure. The patella was also cemented at this point in time and held with a patellar clamp. Once again excess cement was cleared from around the patellar component as well. The knee was held in the extended position until cement was allowed to fully cure. During that time we irrigated the knee with 20 mL of Betadine and 500 mL of normal saline and this was allowed to remain in the knee for 3-4 minutes. Once the cement had fully cured, all surfaces were reevaluated for further extruded cement and where this was found it was excised. Once the cement had fully cured and excess cement was cleared, the knee was then copiously irrigated and suctioned dry. Exparel was placed. Attention was then directed to closure. Closure was accomplished with 0 Vicryl in the fascial tissues, 2-0 Monocryl was used in the subcutaneous tissues, and the skin was closed with skin jessica. A sterile dressing was then placed consisting of Xeroform gauze, 4 x 4's, ABDs, sterile soft roll, and an Maxi wrap. The patient was returned the Recovery Room in a satisfactory condition. X-rays were obtained there. The patient will be discharged to the floor for postoperative rehabilitation and pain management. There were no specimens and no com plications. Associated Problem List Diagnoses (1) Post-traumatic osteoarthritis of right knee: (2) Femoral distal fracture: Qualifiers: Encounter type: sequela Fracture type: closed Fracture morphology: unspecified fracture morphology Laterality: right Qualified Code(s): S72.401S - Unspecified fracture of lower end of right femur, sequela
[2020-07-26] MEDS: chlorhexidine gluconate 0.12% Btl 473 mL 30 ML MUCOUS MEM ×2 (14:10→17:38)
[2020-07-26] MEDS: sennosides-docusate Tablet 2 TAB PO (17:35)
[2020-07-26] MEDS: calcium carbonate 500 mg Chew Tablet 1000 MG PO (17:35)
[2020-07-26] MEDS: iron polysaccharide complex 150 mg Capsule PO (17:36)
[2020-07-26] MEDS: CELEcoxib 200 mg Capsule PO (17:36)
[2020-07-26] MEDS: mupirocin oint 22 gm 1 APPLIC NASAL (17:36)
[2020-07-27 00:46] VITALS: BP 110/60; PULSE 60; RESP 18; TEMP 37.1; O2SAT 94
[2020-07-27 02:34] LABS: Basophils % 0.2 %; Eosinophils % 0.1 %; Hematocrit 21.6 % (37.0-47.0); Hemoglobin 7.3 g/dL (11.5-15.3); Lymphocytes # 1.3 10^3/uL (0.8-4.8); Lymphocytes % 12.1 %; Mean Corpuscular HGB Conc 33.8 g/dL (30.0-36.0); Mean Corpuscular Hemoglobin 32.9 pg (28.0-34.0); Mean Corpuscular Volume 97.3 fL (81-99); Mean Platelet Volume 9.2 fL (7.4-10.4); Monocytes # 0.5 10^3/uL (0.2-0.9); Monocytes % 4.2 %; Neutrophils # 8.85 10^3/uL (1.8-7.7); Neutrophils % 82.8 %; Nucleated Red Blood Cells % 0 %; Platelet Count 83 10^3/cmm (130-400); Red Blood Count 2.22 10^6/uL (4.1-5.3); Red Cell Distribution Width 16.1 % (12.1-15.1); White Blood Count 10.7 10^3/uL (4.0-10.0)
[2020-07-27 02:56] LABS: Blood Urea Nitrogen 16 mg/dL (8-23); Calcium 8.1 mg/dL (8.5-10.5); Carbon Dioxide 23 mmol/L (22-29); Chloride 107 mmol/L (98-107); Glomerular Filtration Rate 72.4 mL/min (90-130); Glucose 112 mg/dL (65-115); Osmolality Calculated 288 mOsm/kg (285-295); Sodium 138 mmol/L (136-145)
[2020-07-27 04:06] VITALS: BP 117/60; PULSE 73; RESP 18; TEMP 37.2; O2SAT 96
[2020-07-27] MEDS: vancomycin 1,000 MG in sodium chloride 0.9% 250 ML 250 MG IV (05:57)
[2020-07-27] MEDS: CELEcoxib 200 mg Capsule PO (06:04)
[2020-07-27 08:23] VITALS: BP 121/61; PULSE 73; RESP 16; TEMP 36.8; O2SAT 96
[2020-07-27 08:57] VITALS: PULSE 76; O2SAT 93
[2020-07-27] MEDS: cholecalciferol (vitamin D3) 1,000 unit Tablet 1000 UNIT PO (09:37)
[2020-07-27] MEDS: iron polysaccharide complex 150 mg Capsule PO (09:37)
[2020-07-27] MEDS: multivitamin therapeutic Tablet 1 TAB PO (09:37)
[2020-07-27] MEDS: aspirin 325 mg EC Tablet PO (09:37)
[2020-07-27] MEDS: levothyroxine 50 mcg Tablet PO (09:37)
[2020-07-27] MEDS: sennosides-docusate Tablet 2 TAB PO (09:37)
[2020-07-27] MEDS: chlorhexidine gluconate 0.12% Btl 473 mL 30 ML MUCOUS MEM ×2 (09:38→12:52)
[2020-07-27] MEDS: calcium carbonate 500 mg Chew Tablet 1000 MG PO (09:38)
[2020-07-27] MEDS: mupirocin oint 22 gm 1 APPLIC NASAL (09:38)
--- NOTE | 2020-07-27 10:59 | P.PN_ITS ---
Vitals/I&O/Wt Last Vital Signs Temp 98.2 F 07/27/20 08:23 Pulse 76 07/27/20 08:57 Resp 16 07/27/20 08:23 BP 121/61 07/27/20 08:23 Pulse Ox 93 07/27/20 08:57 07/26/20 07/27/20 07/27/20 22:59 06:59 14:59 Intake Total 580 / 2140 120 / 2260 120 / 120 Output Total 700 / 2800 Balance 580 / 40 -580 / -540 120 / 120 Physical Exam Urinary Catheter Management^: Tafoya: Cath Placed During This Visit: yes, but has since been removed by the nurse Reason for Continuing Indwelling Catheter: Perioperative Use in Selected Surgeries Urinary Catheter Date of Insertion: 07/26/20 Urinary Catheter Time of Insertion: 07:30 Date Urinary Catheter Removed: 07/27/20 Time Urinary Catheter Discontinued: 06:21 Data : 07/27/20 02:08 07/27/20 02:08 Micro: Microbiology 07/26/20 08:30 Gram Stain - Final Knee - Right A&P Assessment and plan (1) Post-traumatic osteoarthritis of right knee: Status: Acute (2) Femoral distal fracture: Status: Acute Qualifiers: Encounter type: sequela Fracture type: closed Fracture morphology: unspecified fracture morphology Laterality: right Qualified Code(s): S72.401S - Unspecified fracture of lower end of right femur, sequela Coding Level of Care Code Acute Educational Audiologist for [facility] Diagnoses Post-traumatic osteoarthritis of right knee M17.31 Femoral distal fracture S72.401S Encounter type: sequela Fracture type: closed Fracture morphology: unspecified fracture morphology Laterality: right
--- NOTE | 2020-07-27 11:17 | P.DS_ITS ---
Discharge Providers Date of Admission: 07/26/20 12:15 Date of Discharge: July 27, 2020 Attending Provider at Admission: Telma Scruggs MD Attending Provider at Discharge: Telma Scruggs MD Primary Care Provider: CELINE Garcia Diagnoses at Discharge Discharge Diagnosis (1) Status post revision of total replacement of right knee: Status: Acute (2) Post-traumatic osteoarthritis of right knee: Status: Resolved (3) Femoral distal fracture: Status: Inactive Qualifiers: Encounter type: sequela Fracture morphology: unspecified fracture morphology Fracture type: closed Laterality: right Qualified Code(s): S72.401S - Unspecified fracture of lower end of right femur, sequela Reason for Visit Reason for Visit: right total knee arthroplasty Hospital Course Hospital Course Patient was admitted on the day of surgery following Revision right total knee arthroplasty following distal femoral fracture with subsequent hardware removal. Patient did well, and on the first postoperative day, she was ambulating independently in her room. Dressings were removed. She was neurologically intact. The wound was benign. She was able to straight leg raise without issue. There was no evidence of DVT. She was anxious and ready to be discharged to home. Physical Exam Const: COMMON NORMALS: no acute distress, average body habitus, patient oriented x3 and alert GENERAL APPEARANCE: cooperative and comfortable ORIENTATION/CONSCIOUSNESS: Yes awake HENMT: COMMON NORMALS: normocephalic and atraumatic HEAD & SCALP: normocep halic and atraumatic Eye: GENERAL EYE: appearance normal, both eyes and all related structures Chest: COMMONS NORMALS: normal inspection of the chest Resp: COMMON NORMALS: normal respiratory effort EFFORT & INSPECTION: Yes able to speak in complete sentences and Yes symmetric chest movement Extremity: RIGHT LOWER EXTREMITY: Yes knee joint Right knee: Yes inspection (Wound is benign. There is minimal to no swelling about the knee.), Yes palpation (Minimal tenderness. There is no drainage.), Yes ROM (Patient is able to straight leg raise.) and Yes neurovascular exam ( Intact with no DVT.) Neuro: COMMON NORMALS: patient oriented x3 SENSORIUM/ORIENTATION: Yes alert Psych: COMMON NORMALS: mental status grossly normal APPEARANCE: Yes grossly normal ATTITUDE: Yes calm and Yes engaged ATTENTION/CONCENTRATION: Yes attention grossly intact Skin: COMMON NORMALS: no rashes or lesions noted GENERAL SKIN EXAM: no rashes or lesions noted Urinary Catheter Management^: Tafoya: Cath Placed During This Visit: yes, but has since been removed by the nurse Reason for Continuing Indwelling Catheter: Perioperative Use in Selected Surgeries Urinary Catheter Date of Insertion: 07/26/20 Urinary Catheter Time of Insertion: 07:30 Date Urinary Catheter Removed: 07/27/20 Time Urinary Catheter Discontinued: 06:21 Discharge Data Data Completed and Pending: Completed Studies During Hospitalization Category Date Time Status XR knee RT 1-2V 7 3560 Routine Exams 07/26/20 09:11 Completed XR knee RT 1-2V 7 3560 Routine Exams 07/26/20 09:11 Completed XR knee RT 1-2V 7 3560 Urgent Exams 07/26/20 11:08 Completed Pending at discharge Category Date Time Status Anaerobic Culture Routine Lab 07/26/20 08:30 Results Complete Blood Co unt w/Auto AM LABS Lab 07/28/20 04:00 Ordered Complete Blood Co unt w/Auto AM LABS Lab 07/29/20 04:00 Ordered Complete Blood Co unt w/Auto Routine Lab 07/21/20 13:04 Uncollected Urinalysis Routin e Lab 07/21/20 13:04 Uncollected Wound Culture and Gram Stain Routin e Lab 07/26/20 08:30 Results Labs from last 24 hours 07/27/20 07/27/20 02:08 02:08 WBC 10.7 H RBC 2.22 L Hgb 7.3 L Hct 21.6 L MCV 97.3 MCH 32.9 MCHC 33.8 RDW 16.1 H Plt Count 83 L MPV 9.2 Neut % (Auto) 82.8 Lymph % (Auto) 12.1 [place] % (Auto) 4.2 Eos % (Auto) 0.1 Baso % (Auto) 0.2 Neut # (Auto) 8.85 H Lymph # (Auto) 1.3 [place] # (Auto) 0.5 Eos # (Auto) 0.0 Baso # (Auto) 0.0 Nucleated RBC % (a uto) 0 Nucleated RBCs # 0.0 Sodium 138 Potassium 4.0 Chloride 107 Carbon Dioxide 23 Anion Gap 12.0 BUN 16 Creatinine 0.8 GFR Calculation 72.4 L Glucose 112 Calculated Osmolal ity 288 Calcium 8.1 L Vitals: Last Vital Signs Temp 98.2 F 07/27/20 08:23 Pulse 76 07/27/20 08:57 Resp 16 07/27/20 08:23 BP 121/61 07/27/20 08:23 Pulse Ox 93 07/27/20 08:57 Discharge Plan Discharge Patient Disposition: Home Health Service Condition: Stable Prescriptions: New acetaminophen 500 mg Tablet 1,000 mg PO Q8H 15 Days Qty: 0 RF: 0 aspirin 325 mg Tablet,Delayed Release (Dr/Ec) 325 mg PO DAILY 30 Days RF: 0 celecoxib 200 mg Capsule 200 mg PO Q12H Qty: 60 RF: 0 oxycodone 5 mg Tablet 5 mg PO Q4H PRN (Reason: Moderate Pain) Qty: 30 RF: 0 Continued levothyroxine 50 mcg capsule 50 mcg PO DAILY RF: 0 tramadol 50 mg tablet 100 mg PO BID PRN (Reason: Pain) RF: 0 (DME) WHEEL CHAIR See Rx Instructions .Route .MEDSUPPLY Qty: 1 RF: 0 methotrexate sodium 2.5 mg Tablet 20 mg PO Q7D RF: 0 Held naproxen [Naprosyn] 500 mg tablet 500 mg PO BID RF: 0 Hold Instructions: Resume on 08/24/20. After completion of Celebrex hydrocodone-acetaminophen [[place]] 5-325 mg tablet 1 tab PO Q6H PRN (Reason: pain) Qty: 30 RF: 0 Hold Instructions: Resume on 08/04/20. After oxycodone has completed. aspirin 81 mg Tablet 81 mg PO DAILY RF: 0 Hold Instructions: Resume on 08/24/20. After completing 1 month full dose aspirin. Discharge Orders: Discharge Order (Routine); Ordered 07/27/20 Ordered By: Telma Scruggs Referrals: Telma Scruggs MD [Physician] - 08/09/20 9:00 am (With a second visit on August 15 at 11:45 AM with ga for evaluation and x-ray) Discharge Diet: Advance as tolerated and Usual diet Discharge Activity: Increase activity as tolerated, Limit activity as instructed, Use walker/crutches as instructed and As per PT/OT instructions Patient Instructions: Aspirin (By mouth), Oxycodone, Rapid Release (By mouth), Celecoxib (By mouth), Total Knee Replacement (DC) Activity Restrictions/Additional Instructions: Ice and elevate to right lower extremity. May weight-bear as tolerated. Strengthening, gait, and range of motion per therapy. Discharge Attestations Time Spent in Discharge Care*: greater than 30 min Specific Discharge Activities: educating patient, discussing with medical laboratory technician/social workers/dc planners and documenting/other paperwork Quality Metrics Clinical Quality Measures During this hospital stay, did patient experience: None Coding Level of Care Code Acute Construction Or Leak Gang Laborer for [facility] Diagnoses Status post revision of total replacement of right knee Z96.651 Post-traumatic osteoarthritis of right knee M17.31 Femoral distal fracture S72.401S Encounter type: sequela Fracture morphology: unspecified fracture morphology Fracture type: closed Laterality: right
[2020-07-27 12:00] VITALS: BP 135/66; PULSE 71; RESP 16; TEMP 36.7; O2SAT 95
[2020-07-27 14:56] VITALS: BP 135/66; PULSE 71; RESP 16; TEMP 36.7; O2SAT 95
--- NOTE | 2020-07-27 16:34 | PC.RESP ---
Smoking Cessation information sent to patient.
== END 2020-07-27 14:45 | disposition home health service (06) | DRG 467 ==
LOC: MEDSURG 12:16
PROVIDERS: Admitting Provider Specialist; PCP Nurse Practitioner Family; Visit Provider Specialist
PROC: 0SPT0JZ Removal of Synthetic Substitute from Right Knee Joint, Femoral Surface, Open Approach (ICD-10-PCS; principal; 2020-07-26 07:00)
DX: S72.401A Unspecified fracture of lower end of right femur, initial encounter for closed fracture (principal); T84.84XA Pain due to internal orthopedic prosthetic devices, implants and grafts, initial encounter; M17.31 Unilateral post-traumatic osteoarthritis, right knee; M79.7 Fibromyalgia; E03.9 Hypothyroidism, unspecified; X58.XXXA Exposure to other specified factors, initial encounter; Z79.82 Long term (current) use of aspirin
CPT/HCPCS: 12345; 36415; 51702; 64447; 73560; 76942; 80048; 81003; 85025; 87070; 87075; 87205; 96365; 96375; 97116; 97161; 97165; 97530; C1776; C9290; J0131; J0690; J1100; J2250; J2405; J2704; J2795; J3010; J3370; J3490; J7030; J7050

== ENCOUNTER → 2020-08-15 11:49 | Outpatient (BNVA) | payer MEDICAID, SELFPAY | PROVIDERS: PCP Nurse Practitioner Family; Visit Provider Specialist | DX: Z96.651 Presence of right artificial knee joint (principal); M21.612 Bunion of left foot; M20.42 Other hammer toe(s) (acquired), left foot | CPT/HCPCS: 73560; 73565; 73630 ==

== ENCOUNTER → 2020-10-03 13:24 | Outpatient (BNVA) | payer MEDICAID, SELFPAY | PROVIDERS: PCP Nurse Practitioner Family; Visit Provider Specialist | DX: Z96.651 Presence of right artificial knee joint (principal) | CPT/HCPCS: 73560; 73565 ==

== ENCOUNTER → 2021-01-19 10:38 | Outpatient (BNVA) | payer MEDICAID, SELFPAY | PROVIDERS: PCP Nurse Practitioner Family; Visit Provider Nurse Practitioner Family | DX: Z79.899 Other long term (current) drug therapy (principal); E03.9 Hypothyroidism, unspecified; E78.5 Hyperlipidemia, unspecified; I10 Essential (primary) hypertension; T84.84XA Pain due to internal orthopedic prosthetic devices, implants and grafts, initial encounter; M25.50 Pain in unspecified joint; M06.9 Rheumatoid arthritis, unspecified; E05.90 Thyrotoxicosis, unspecified without thyrotoxic crisis or storm | CPT/HCPCS: 80053; 80061; 84443; 84550; 85025 ==

== ENCOUNTER → 2021-01-25 13:44 | Outpatient (BNVA) | payer MEDICAID, SELFPAY | PROVIDERS: PCP Nurse Practitioner Family; Visit Provider Specialist | DX: Z96.651 Presence of right artificial knee joint (principal) | CPT/HCPCS: 73560; 73565; 73610 ==

== ENCOUNTER 2021-01-25 15:53 | Outpatient (CLI) | payer MEDICAID, SELFPAY | END 2021-01-25 15:54 | disposition home or self-care (01) | LOC: SPT 15:53 | PROVIDERS: PCP Nurse Practitioner Family; Visit Provider Podiatrist Foot & Ankle Surgery | DX: Z46.89 Encounter for fitting and adjustment of other specified devices (principal); S92.001D Unspecified fracture of right calcaneus, subsequent encounter for fracture with routine healing; X58.XXXD Exposure to other specified factors, subsequent encounter | CPT/HCPCS: 97760; L4361 ==

== ENCOUNTER 2021-02-08 16:46 | Outpatient (CLI) | payer MEDICAID, SELFPAY ==
--- NOTE | 2021-02-08 16:53 | MR_ITS ---
WS: [id number] INDICATION: Right foot pain. Trauma. Heal fracture. TECHNIQUE: Axial T1 and stir PD and T2 imaging. Sagittal STIR PD imaging. Coronal T2 and PD imaging. FINDINGS: Osteopenia at the ankle mortise. Normal alignment of the ankle mortise. Pes planus with donna ntar calcaneal spurring. Degenerative arthritis subtalar joint. Diffuse soft tissue edema about the m edial lateral malleolus. Nondisplaced fractures involving the distal tibia at the tibial plafond. Additional nondisplaced frac ture involving the distal fibula. Associated diffuse edema in these locations. Additional diffuse lianna ma with serpiginous fracture lines involving the calcaneus with complex nondisplaced fractures. Diffuse edema involving the navicular, and the medial, intermediate and lateral cuneiforms with nondi splaced fractures. This is worse involving the navicular and medial cuneiform. Small amount, of edema involving the base of the first metatarsal and head of the first metatarsal. Additional small nondi splaced fracture lines in these locations. Additional edema with small nondisplaced fractures involving the second third and fourth metatarsal h maria eugenia. Partially visualized phalanges appear grossly normal although not well evaluated. Talar dome appears normal. Small amount of plantar soft tissue edema. Tendinosis or partial tear invo lving the proximal Achilles. Distal Achilles is normal. MR/MR foot RT wo con* [id number] IMPRESSION: 1. Nondisplaced complex fractures involving the calcaneus with diffuse edema 2. Additional nondisplaced fractures involving the navicular and medial, inter mediate and lateral cuneiforms with diffuse edema. 3. In addition, nondisplaced fractures involving the distal tibial plafond and distal fibula. Diffuse edema in these locations. 4. Ankle mortise is preserved. 5. Normal talar dome. 6. Additional nondisplaced fractures with edema involving the base and head of the first metatarsal and head of the second, third, and fourth metatarsals. 7. Pes planus with diffuse soft tissue edema. 8. Partial intrasubstance tear or tendinosis involving the proximal Achilles p artially visualized. Distal Achilles is normal. 9. Plantar calcaneal spurring.
== END 2021-02-08 16:47 | disposition home or self-care (01) ==
LOC: RADSHAW 16:50
PROVIDERS: PCP Nurse Practitioner Family; Visit Provider Podiatrist Foot & Ankle Surgery
DX: M79.671 Pain in right foot (principal); M77.31 Calcaneal spur, right foot; M21.41 Flat foot [pes planus] (acquired), right foot; R60.0 Localized edema; S92.001A Unspecified fracture of right calcaneus, initial encounter for closed fracture; X58.XXXA Exposure to other specified factors, initial encounter
CPT/HCPCS: 73718

== ENCOUNTER 2021-02-16 14:33 | Outpatient (CLI) | payer MEDICAID, SELFPAY | END 2021-02-16 14:34 | disposition home or self-care (01) | LOC: SPT 14:34 | PROVIDERS: PCP Nurse Practitioner Family; Visit Provider Podiatrist Foot & Ankle Surgery | DX: Z46.89 Encounter for fitting and adjustment of other specified devices (principal); M79.672 Pain in left foot | CPT/HCPCS: 97760; L4361 ==

== ENCOUNTER → 2021-03-10 09:09 | Outpatient (BNVA) | payer MEDICAID, SELFPAY | PROVIDERS: PCP Nurse Practitioner Family; Visit Provider Podiatrist Foot & Ankle Surgery | DX: S92.001A Unspecified fracture of right calcaneus, initial encounter for closed fracture (principal); X58.XXXA Exposure to other specified factors, initial encounter | CPT/HCPCS: 73610; 73630 ==

== ENCOUNTER → 2021-03-20 13:43 | Outpatient (BNVA) | payer MEDICAID, SELFPAY | PROVIDERS: PCP Nurse Practitioner Family; Visit Provider Internal Medicine | DX: M06.9 Rheumatoid arthritis, unspecified (principal); Z79.899 Other long term (current) drug therapy; Z11.59 Encounter for screening for other viral diseases; Z11.1 Encounter for screening for respiratory tuberculosis; M84.471G Pathological fracture, right ankle, subsequent encounter for fracture with delayed healing; Y93.9 Activity, unspecified; F17.210 Nicotine dependence, cigarettes, uncomplicated | CPT/HCPCS: 99204 ==

== ENCOUNTER 2021-03-27 10:35 | Outpatient (CLI) | payer MEDICAID, SELFPAY ==
--- NOTE | 2021-03-27 10:51 | XR_ITS ---
WS: [id number] TECHNIQUE: 2 views of the right hand CLINICAL INFORMATION: M06.9 - Rheumatoid arthritis, unspecified COMPARISON: None. FINDINGS: Osteopenia. Advanced joint space narrowing involving the radiocarpal joint. Degenerative narrowing in volving the carpal bones and CMC joints. Moderate joint space narrowing involving the third and fourt h MCP joints. Subluxation with loss of the first MCP joint space. Degenerative arthritis first CMC. I P joints are well preserved. Mild soft tissue edema at the wrist. XR/XR hand RT 2V [id number] IMPRESSION: 1. Osteopenia. 2. Advanced degenerative narrowing at the radiocarpal joint. 3. Advanced degenerative narrowing involving the third and fourth MCP joints. 4. Joint space narrowing with subluxation of the first MCP.
--- NOTE | 2021-03-27 10:51 | XR_ITS ---
WS: [id number] TECHNIQUE: 2 views of the left hand CLINICAL INFORMATION: M06.9 - Rheumatoid arthritis, unspecified COMPARISON: None. FINDINGS: Osteopenia. Mild narrowing of the radiocarpal joint. Normal carpal bones. Complete loss of the first MCP joint space with hypertrophic changes and subluxation. IP joints are well preserved. MCP joints a re otherwise well preserved. XR/XR hand LT 2V [id number] IMPRESSION: 1. Destructive changes involving the first MCP joint with complete loss of the joint space and ankylosis with subluxation. 2. Osteopenia. 3. Mild narrowing of the radiocarpal joint.
--- NOTE | 2021-03-27 10:51 | XR_ITS ---
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 Lungs: Hyperinflation. Advanced chronic emphysematous changes. No acute pulmonary infiltrates. No foc al pneumonia or pleural fluid. Bones: Normal visualized bony structures. XR/XR chest 2V* [id number] IMPRESSION: 1. Hyperinflation with advanced chronic emphysematous changes. No acute pulmon dewayne infiltrates. 2. No focal pneumonia or pleural fluid.
== END 2021-03-27 10:36 | disposition home or self-care (01) ==
PROVIDERS: PCP Nurse Practitioner Family; Visit Provider Internal Medicine
DX: I73.9 Peripheral vascular disease, unspecified (principal); L60.3 Nail dystrophy; M06.9 Rheumatoid arthritis, unspecified; M79.671 Pain in right foot; Z79.899 Other long term (current) drug therapy
CPT/HCPCS: 36415; 71046; 73120

== ENCOUNTER 2021-03-27 11:49 | Outpatient (CLI) | payer MEDICAID, SELFPAY ==
--- NOTE | 2021-03-27 12:00 | XR_ITS ---
WS: [id number] SCREENING DEXA SCAN [facility] IDXA CLINICAL INFORMATION: M80.80XA - Other osteoporosis with current pathological f... COMPARISON: None. FINDINGS: The L1-L4 bone mineral density measures 0.959 g/cm2. This corresponds to a T score score of -1.8 and Z score of 0.2. Left femoral neck bone mineral density measures 0.667. This corresponds to a T score of -2.7 and Z sc ore of -1.2. XR/XR DEXA axial skeleton* [id number] IMPRESSION: Osteopenia lumbar spine. Osteoporosis in the femoral necks. Patient's FRAX calculated 10 year probability for major osteoporotic fracture i s 30.4 % and osteoporotic hip fracture is 13.4%.
== END 2021-03-27 11:50 | disposition home or self-care (01) ==
PROVIDERS: PCP Nurse Practitioner Family; Visit Provider Nurse Practitioner Family
DX: I73.9 Peripheral vascular disease, unspecified (principal); M80.80XA Other osteoporosis with current pathological fracture, unspecified site, initial encounter for fracture; L60.3 Nail dystrophy; M06.9 Rheumatoid arthritis, unspecified; M79.671 Pain in right foot; Z51.81 Encounter for therapeutic drug level monitoring; Z79.899 Other long term (current) drug therapy; D86.9 Sarcoidosis, unspecified; M32.9 Systemic lupus erythematosus, unspecified; Z11.59 Encounter for screening for other viral diseases; Z11.1 Encounter for screening for respiratory tuberculosis
CPT/HCPCS: 77080; 80053; 82306; 82310; 83970; 84100; 85025; 86431; 86480; 86704; 86803; 87340

== ENCOUNTER → 2021-04-04 14:36 | Outpatient (BNVA) | payer MEDICAID, SELFPAY | PROVIDERS: PCP Nurse Practitioner Family; Visit Provider Podiatrist Foot & Ankle Surgery | DX: S92.001A Unspecified fracture of right calcaneus, initial encounter for closed fracture (principal); M79.673 Pain in unspecified foot; S92.902A Unspecified fracture of left foot, initial encounter for closed fracture; M81.8 Other osteoporosis without current pathological fracture | CPT/HCPCS: 73610; 73630 ==

== ENCOUNTER → 2021-05-09 14:25 | Outpatient (BNVA) | payer MEDICAID, SELFPAY | PROVIDERS: PCP Nurse Practitioner Family; Visit Provider Podiatrist Foot & Ankle Surgery | DX: S92.001A Unspecified fracture of right calcaneus, initial encounter for closed fracture (principal); M79.673 Pain in unspecified foot; S92.902A Unspecified fracture of left foot, initial encounter for closed fracture; M81.8 Other osteoporosis without current pathological fracture; M79.671 Pain in right foot; M21.612 Bunion of left foot; M21.611 Bunion of right foot; M20.41 Other hammer toe(s) (acquired), right foot; M20.42 Other hammer toe(s) (acquired), left foot; M21.619 Bunion of unspecified foot; M06.9 Rheumatoid arthritis, unspecified; M79.7 Fibromyalgia | CPT/HCPCS: 73610; 73630 ==

== ENCOUNTER → 2021-06-26 14:27 | Outpatient (BNVA) | payer MEDICAID, SELFPAY | PROVIDERS: PCP Nurse Practitioner Family; Visit Provider Internal Medicine | DX: M06.9 Rheumatoid arthritis, unspecified (principal); Z79.899 Other long term (current) drug therapy; F17.210 Nicotine dependence, cigarettes, uncomplicated | CPT/HCPCS: 36415; 80053; 85025; 99214 ==

== ENCOUNTER → 2021-08-09 11:28 | Outpatient (BNVA) | payer MEDICAID, SELFPAY | PROVIDERS: PCP Nurse Practitioner Family; Visit Provider Nurse Practitioner Family | DX: S92.909A Unspecified fracture of unspecified foot, initial encounter for closed fracture (principal); E03.9 Hypothyroidism, unspecified | CPT/HCPCS: 84443 ==

== ENCOUNTER → 2021-11-22 09:25 | Outpatient (BNVA) | payer MEDICARE, MEDICAID, SELFPAY | PROVIDERS: PCP Nurse Practitioner Family; Visit Provider Internal Medicine | DX: M06.9 Rheumatoid arthritis, unspecified (principal); Z79.899 Other long term (current) drug therapy; M79.7 Fibromyalgia | CPT/HCPCS: 80053; 85025; 85651; 86140 ==

== ENCOUNTER → 2021-12-07 13:04 | Outpatient (BNVA) | payer MEDICARE, MEDICAID, SELFPAY | PROVIDERS: PCP Nurse Practitioner Family; Visit Provider Internal Medicine | DX: M06.9 Rheumatoid arthritis, unspecified (principal); R74.8 Abnormal levels of other serum enzymes; Z79.899 Other long term (current) drug therapy; S92.909D Unspecified fracture of unspecified foot, subsequent encounter for fracture with routine healing; F17.210 Nicotine dependence, cigarettes, uncomplicated; Y93.9 Activity, unspecified | CPT/HCPCS: 73600; 73620; 84075; 99214 ==

== ENCOUNTER → 2022-01-24 12:56 | Outpatient (BNVA) | payer MEDICARE, OTHER, MEDICAID, SELFPAY | PROVIDERS: PCP Nurse Practitioner Family; Visit Provider Specialist | DX: Z96.651 Presence of right artificial knee joint (principal) | CPT/HCPCS: 73560; 73565; 99213 ==

== ENCOUNTER → 2022-02-06 11:28 | Outpatient (BNVA) | payer MEDICARE, OTHER, MEDICAID, SELFPAY | PROVIDERS: PCP Nurse Practitioner Family; Visit Provider Nurse Practitioner Family | DX: D64.9 Anemia, unspecified (principal); E05.90 Thyrotoxicosis, unspecified without thyrotoxic crisis or storm | CPT/HCPCS: 84443; 85025 ==

== ENCOUNTER → 2022-02-14 11:35 | Outpatient (BNVA) | payer MEDICARE, MEDICAID, SELFPAY | PROVIDERS: PCP Nurse Practitioner Family; Visit Provider Nurse Practitioner Family | DX: M06.9 Rheumatoid arthritis, unspecified (principal); R74.8 Abnormal levels of other serum enzymes; D64.9 Anemia, unspecified; D69.6 Thrombocytopenia, unspecified; Z79.899 Other long term (current) drug therapy | CPT/HCPCS: 80053; 82550; 82607; 83540; 85025; 85651; 86140 ==

== ENCOUNTER → 2022-02-16 12:48 | Outpatient (BNVA) | payer MEDICARE, MEDICAID, SELFPAY | PROVIDERS: PCP Nurse Practitioner Family; Visit Provider Podiatrist Foot & Ankle Surgery | DX: M25.572 Pain in left ankle and joints of left foot (principal); M25.571 Pain in right ankle and joints of right foot; M79.671 Pain in right foot; M79.672 Pain in left foot; M21.611 Bunion of right foot; M21.612 Bunion of left foot; M20.41 Other hammer toe(s) (acquired), right foot; M20.42 Other hammer toe(s) (acquired), left foot; M06.9 Rheumatoid arthritis, unspecified; M79.7 Fibromyalgia; S82.52XA Displaced fracture of medial malleolus of left tibia, initial encounter for closed fracture; X58.XXXA Exposure to other specified factors, initial encounter | CPT/HCPCS: 73600; 73630; 99214 ==

== ENCOUNTER 2022-02-16 14:31 | Outpatient (CLI) | payer MEDICARE, MEDICAID, SELFPAY | END 2022-02-16 14:32 | disposition home or self-care (01) | LOC: SPT 14:32 | PROVIDERS: PCP Nurse Practitioner Family; Visit Provider Podiatrist Foot & Ankle Surgery | DX: Z46.89 Encounter for fitting and adjustment of other specified devices (principal); S82.62XS Displaced fracture of lateral malleolus of left fibula, sequela; X58.XXXS Exposure to other specified factors, sequela | CPT/HCPCS: 97760; L1902 ==

== ENCOUNTER → 2022-03-08 13:31 | Outpatient (BNVA) | payer MEDICARE, MEDICAID, SELFPAY | PROVIDERS: PCP Nurse Practitioner Family; Visit Provider Podiatrist Foot & Ankle Surgery | DX: S82.52XA Displaced fracture of medial malleolus of left tibia, initial encounter for closed fracture (principal); M79.671 Pain in right foot; M79.672 Pain in left foot; M21.611 Bunion of right foot; M21.612 Bunion of left foot; M20.41 Other hammer toe(s) (acquired), right foot; M20.42 Other hammer toe(s) (acquired), left foot; M06.9 Rheumatoid arthritis, unspecified; M79.7 Fibromyalgia; X58.XXXA Exposure to other specified factors, initial encounter | CPT/HCPCS: 73610; 73630; 99214 ==

== ENCOUNTER → 2022-03-29 13:01 | Outpatient (BNVA) | payer MEDICARE, MEDICAID, OTHER, SELFPAY | PROVIDERS: PCP Nurse Practitioner Family; Visit Provider Podiatrist Foot & Ankle Surgery | DX: S82.52XA Displaced fracture of medial malleolus of left tibia, initial encounter for closed fracture (principal); X58.XXXA Exposure to other specified factors, initial encounter; M06.9 Rheumatoid arthritis, unspecified; M20.41 Other hammer toe(s) (acquired), right foot; M20.42 Other hammer toe(s) (acquired), left foot; M21.611 Bunion of right foot; M21.612 Bunion of left foot; M79.7 Fibromyalgia | CPT/HCPCS: 73610; 73650; 99214 ==

== ENCOUNTER → 2022-05-03 13:04 | Outpatient (BNVA) | payer MEDICARE, MEDICAID, OTHER, SELFPAY | PROVIDERS: PCP Nurse Practitioner Family; Visit Provider Podiatrist Foot & Ankle Surgery | DX: S82.52XA Displaced fracture of medial malleolus of left tibia, initial encounter for closed fracture (principal); X58.XXXA Exposure to other specified factors, initial encounter; M21.611 Bunion of right foot; M21.612 Bunion of left foot; M20.41 Other hammer toe(s) (acquired), right foot; M20.42 Other hammer toe(s) (acquired), left foot; M06.9 Rheumatoid arthritis, unspecified; M79.7 Fibromyalgia | CPT/HCPCS: 73610; 73650; 99214 ==

== ENCOUNTER 2022-05-26 16:25 | Emergency (ER) | payer MEDICARE, MEDICAID, SELFPAY ==
[2022-05-26 16:36] VITALS: BP 124/70; PULSE 94; RESP 21; TEMP 37.3; O2SAT 96; BMI 22.6
--- NOTE | 2022-05-26 18:14 | XRR_ITS ---
PROCEDURE INFORMATION: Exam: XR Chest Exam date and time: 05/26/2022 6:24 PM Age: 66 years old Clinical indication: Cough TECHNIQUE: Imaging protocol: Radiologic exam of the chest. Views: 1 view. COMPARISON: CR XR chest 2V* [id number] 03/27/2021 10:58 AM FINDINGS: Lungs: Faint densities at lower left chest raise consideration of very mild infiltrate or atelectasis. 6 mm nodule is difficult to exclude. Pleural spaces: Unremarkable. No pleural effusion. No pneumothorax. Heart/Mediastinum: Unremarkable. No cardiomegaly. Bones/joints: No acute findings. XR/XR chest 1V portable [id number] IMPRESSION: Faint infiltrates or atelectasis suspected at lower left chest; focal opacity at site of left basilar abnormality raises question of nodule or focally more dense airspace disease.
[2022-05-26 18:31] VITALS: BP 137/71; PULSE 91; RESP 16; O2SAT 98
--- NOTE | 2022-05-26 18:34 | W.ED.GENADLT ---
HPI - General Adult General: Chief complaint: General Medical Stated complaint: SOB, body aches Time Seen by Provider: 05/26/22 18:28 History of Present Illness: Patient is a 66-year-old female with history of fibromyalgia, hypothyroidism, nicotine dependence presenting to emergency room for concerns of cough for 1 week. Patient reports worsening cough today. Time has not improved. Patient reports that her was sick at home with similar symptoms. Patient denies any fever/chills but reports body aches, denies any diarrhea melena medic easier. Patient denies any abdominal complaints. Patient has no nausea or vomiting, chest pain. Patient went to see her primary yesterday was diagnosed with pneumonia and started on Z-Marcin. Since starting Z-Marcin and albuterol treatment, patient has has had no improvement. She decided to come to the ER for reassessment. Onset: 5 days ago Duration:5 days Location:home Severity:moderate Associated symptoms: Reports dyspnea and malaise; Deny chest pain, nausea, rash, palpitations or vomiting Review of Systems Const: Reports: fever(s), body aches, malaise and other (+generalized weakness) Eyes: Denies: change in vision ENMT: Denies: mouth pain Card: Denies: chest pain or palpitations Resp: Reports: dyspnea and non-productive cough GI: Denies: abdominal pain, nausea, vomiting or diarrhea : Denies: dysuria Musc: Denies: extremity pain Skin/Breast: Denies: rash or new lesions Neuro: Denies: weakness in extremities Psych: Reports: other (Normal mood) Ronald/Lymph: Denies: easy bruising PFSH ED PFSH: Medical History Ankle pain Fibromyalgia Hypothyroidism Nicotine dependence Onychodystrophy Rheumatoid arthritis Surgical History S/P ORIF (open reduction internal fixation) fracture Status post hip surgery Right intertrochanteric hip fracture 06/30 Family History Daughter MTHFR (methylene THF reductase) deficiency and homocystinuria Other Arthritis Social History Smoking and tobacco status: current every day smoker cigarettes Packs smoked per day: 0.5 Alcohol intake: never Housing: House Physical Exam Const: COMMON NORMALS: alert HENMT: COMMON NORMALS: atraumatic HEAD & SCALP: atraumatic MOUTH: moist mucous membranes not abnormal Eye: COMMON NORMALS: EOMs intact bilaterally and conjunctivae normal CONJUNCTIVA: Yes conjunctivae normal Neck/C-Spine: COMMON NORMALS: full ROM and supple Resp: COMMON NORMALS: normal respiratory effort and clear to auscultation bilaterally AUSCULTATION: clear to auscultation bilaterally Cardio: COMMON NORMALS: regular rate RATE: regular rate GI: COMMON NORMALS: Soft to palpation and non-tender PALPATION: Yes Soft to palpation Extremity: COMMON NORMALS: full ROM Neuro: SENSORIUM/ORIENTATION: Yes alert MOTOR EXAM: No Abnormal motor strength present and Other motor observations present (no focal motor deficits) Psych: COMMON NORMALS: speech normal SPEECH: Yes normal speech MOOD & AFFECT: Yes euthymic mood Course Vital Signs: Vital signs: Vital Signs Temperature 99.2 F 05/26/22 16:36 Pulse Rate 90 05/26/22 19:57 Respiratory Rate 18 05/26/22 19:57 Blood Pressure 137/71 05/26/22 18:31 Pulse Oximetry 99 05/26/22 19:57 Oxygen Delivery Me thod 05/26/22 18:31 MDM - General Adult Medical Decision Making Patient is a 66-year-old female with history of fibromyalgia, hypothyroidism, nicotine dependence presenting to emergency room for concerns of cough for 1 week. On exam, patient is hemodynamically stable with no signs of respiratory distress. X-ray chest showed faint infiltrate versus atelectasis in the left lower lobe. Patient's COVID antigen is positive. We will start patient on Paxil 8. Creatinine function peers within normal. I do not suspect patient clinically has pneumonia today. I have given patient strict return precaution for any drops in the pulse ox to less than 88% while on oxygen. Rx tylenol PRN pain and paxlovid for covid Disposition: Discharge. Patient counseled regarding diagnostic impression, treatment plan. Patient given ED strict return precautions to return for continuation, worsening, or development of new symptoms. Instructed to f/u w/ PCP regarding symptoms today. Patient verbalized understanding. Lab Data : 05/26/22 19:02 05/26/22 19:02 Radiology Impressions Chest X-Ray 05/26/22 18:14 IMPRESSION: Faint infiltrates or atelectasis suspected at lower left chest; focal opacity at site of left basilar abnormality raises question of nodule or focally more dense airspace disease. Laboratory Results Sodium 126 mmol/L (136-145) L 05/26/22 19:02 Potassium 3.9 mmol/L (3.5-5.1) 05/26/22 19:02 Chloride 98 mmol/L (98-107) 05/26/22 19:02 Carbon Dioxide 21 mmol/L (22-29) L 05/26/22 19:02 Anion Gap 10.9 (5-19) 05/26/22 19:02 BUN 22 mg/dL (8-23) 05/26/22 19:02 Creatinine 0.6 mg/dL (0.5-0.9) 05/26/22 19:02 GFR Calculation 100.3 mL/min (90-130) 05/26/22 19:02 Glucose 114 mg/dL (65-115) 05/26/22 19:02 Calculated Osmolality 266 mOsm/kg (285-295) L 05/26/22 19:02 Calcium 8.3 mg/dL (8.5-10.5) L 05/26/22 19:02 C-Reactive Protein 8.7 mg/L (0.0-4.9) H 05/26/22 19:02 Procalcitonin 0.15 ng/mL (0-0.5) 05/26/22 19:02 SARS-CoV-2 Ag (Rapid) positive (Negative) 05/26/22 18:29 Imaging Data Other Imaging: Radiologist's impression: [address] [place] [address] XRay Report Signed Patient: Lori Thomas Unit #: [id number] : [id number] Age/Sex: 66 / F ADM Date: 05/26/22 Loc: ER Room/Bed: Attending Dr: Ordering Provider/Ordering MD: Kuldip Sutherland MD Date of Service: 05/26/22 Procedure(s): XR chest 1V portable [id number] Accession Number(s): [id number] Report Number: [id number] PROCEDURE INFORMATION: Exam: XR Chest Exam date and time: 05/26/2022 6:24 PM Age: 66 years old Clinical indication: Cough TECHNIQUE: Imaging protocol: Radiologic exam of the chest. Views: 1 view. COMPARISON: CR XR chest 2V* [id number] 03/27/2021 10:58 AM FINDINGS: Lungs: Faint densities at lower left chest raise consideration of very mild infiltrate or atelectasis. 6 mm nodule is difficult to exclude. Pleural spaces: Unremarkable. No pleural effusion. No pneumothorax. Heart/Mediastinum: Unremarkable. No cardiomegaly. Bones/joints: No acute findings. XR/XR chest 1V portable [id number] IMPRESSION: Faint infiltrates or atelectasis suspected at lower left chest; focal opacity at site of left basilar abnormality raises question of nodule or focally more dense airspace disease. ? Dictated By: Juvenal Spann MD Signed By: Juvenal Spann MD Signed Date/Time: 05/26/221915 DD/ 23 Discharge Plan Discharge Patient Disposition: Home Clinical Impression: COVID, Cough Condition: Stable Prescriptions: New acetaminophen 500 mg tablet 500 mg PO Q6H PRN (Reason: pain) 5 Days Qty: 20 0RF Paxlovid (EUA) 300 mg (150 mg x 2)-100 mg tablets,dose pack See Rx Instructions .ROUTE .COMPLEX Qty: 30 0RF Rx Instructions: take TWO 150 mg tablets of nirmatrelvir with ONE 100 mg tablet of ritonavir twice daily for 5 days No Action (DME) [employer] Orthotic See Rx Instructions .Route .MEDSUPPLY Qty: 1 0RF Rx Instructions: As directed jaajhok-gngk-tmfzo-oreg-capryl 100 mg-150 mg- 50 mg-150 mg capsule PO calcium carbonate [Calcium 600] 600 mg calcium (1,500 mg) tablet 600 mg PO BID cyanocobalamin (vitamin B-12) 1,000 mcg capsule 1,000 mcg PO DAILY flaxseed oil 1,000 mg capsule 1,000 mg PO BID Rx Instructions: administer with meals zinc 50 mg tablet 50 mg PO DAILY magnesium 250 mg tablet 250 mg PO DAILY Intrinsi [id number] 500-20-800 mcg-mg-mcg tablet PO folic acid 1 mg tablet 1 mg PO DAILY Qty: 90 1RF tramadol 50 mg tablet 50 mg PO DAILY PRN (Reason: pain) Qty: 30 2RF (DME) Suppinator to the left and right ankles See Rx Instructions .Route .MEDSUPPLY Qty: 1 0RF Rx Instructions: As directed (RONNIE) Shoes and Accommedative Orthotics See Rx Instructions .Route .MEDSUPPLY Qty: 1 0RF Rx Instructions: As directed By [facility] alendronate 70 mg tablet See Rx Instructions .ROUTE .COMPLEX Qty: 4 1RF Dose Instruction: TAKE 1 TABLET BY MOUTH ONCE WEEKLY Rx Instructions: TAKE 1 TABLET BY MOUTH ONCE WEEKLY methotrexate sodium 2.5 mg tablet See Rx Instructions .ROUTE .COMPLEX Qty: 32 1RF Dose Instruction: TAKE 8 TABLETS BY MOUTH EVERY 7 DAYS ON SUNDAYS Rx Instructions: TAKE 8 TABLETS BY MOUTH EVERY 7 DAYS ON SUNDAYS gabapentin 100 mg capsule 200 mg PO BID Qty: 120 2RF alendronate 70 mg tablet See Rx Instructions .ROUTE .COMPLEX Qty: 4 2RF Dose Instruction: TAKE ONE TABLET BY MOUTH ONCE WEEKLY Rx Instructions: TAKE ONE TABLET BY MOUTH ONCE WEEKLY naproxen 500 mg tablet See Rx Instructions .ROUTE .COMPLEX Qty: 60 2RF Dose Instruction: TAKE 1 TABLET BY MOUTH TWICE DAILY Rx Instructions: TAKE 1 TABLET BY MOUTH TWICE DAILY levothyroxine 50 mcg tablet See Rx Instructions .ROUTE .COMPLEX Qty: 30 2RF Dose Instruction: TAKE 1 TABLET BY MOUTH EVERY DAY Rx Instructions: TAKE 1 TABLET BY MOUTH EVERY DAY Enbrel SureClick 50 mg/mL (1 mL) pen injector 50 mg SUBCUT .weekly Qty: 4 3RF azithromycin [Zithromax Z-Marcin] 250 mg tablet See Rx Instructions PO .COMPLEX Qty: 6 0RF Rx Instructions: For 250 mg dose pack: take 500 mg today (day 1), then 250 mg for 4 days (days 2-5) PO aspirin 81 mg Tablet 81 mg PO DAILY Hold Instructions: Resume on 08/24/20. After completing 1 month full dose aspirin. Discharge Orders: Discharge ED (Routine); Ordered 05/26/22 Ordered By: Jose Manuel Bernardo Referrals: Nayla Lawson FNP [Primary Care Provider] - Discharge Diet: Advance as tolerated Discharge Activity: Increase activity as tolerated Patient Instructions: COVID-19 (Coronavirus Disease 2019) (ED) Activity Restrictions/Additional Instructions: Come back to the emergency room if your symptoms worsen, have any shortness of breath, fever/chills, dehydration, inability tolerate food or drinks, any difficulty breathing, or any new or concerning complaints. Please return the emergency room if your pulse ox reads less than 90%. Here are the other suggestions for cough: Take mucinex as needed Drink green tea Stay hydrated Use a cough drop Have some honey (every few hours) Use a humidifier Elevate your bed when you sleep Apply menthol scented balm to your nose to decongest Coding Level of Care Code ED Motorcycle Designer for Chg Fwd Exam Comprehensive
[2022-05-26 19:03] LABS: SARS Covid-2 Antigen positive (Negative)
[2022-05-26 19:18] LABS: Basophils % 0.3 %; Eosinophils % 0.3 %; Hematocrit 27.4 % (37.0-47.0); Hemoglobin 9.5 g/dL (11.5-15.3); Lymphocytes % 25.2 %; Mean Corpuscular HGB Conc 34.7 g/dL (30.0-36.0); Mean Corpuscular Hemoglobin 35.2 pg (28.0-34.0); Mean Corpuscular Volume 101.5 fl (81-99); Mean Platelet Volume 12.8 fL (7.4-10.4); Monocytes # 0.1 10^3/uL (0.2-0.9); Monocytes % 1.8 %; Neutrophils # 2.75 10^3/uL (1.8-7.7); Neutrophils % 72.1 %; Nucleated Red Blood Cells % 0 %; Red Cell Distribution Width 15.5 % (12.1-15.1); White Blood Count 3.8 10^3/uL (4.0-10.0)
[2022-05-26 19:48] LABS: Blood Urea Nitrogen 22 mg/dL (8-23); C Reactive Protein 8.7 mg/L (0.0-4.9); Calcium 8.3 mg/dL (8.5-10.5); Carbon Dioxide 21 mmol/L (22-29); Chloride 98 mmol/L (98-107); Glomerular Filtration Rate 100.3 mL/min (90-130); Glucose 114 mg/dL (65-115); Osmolality Calculated 266 mOsm/kg (285-295); Sodium 126 mmol/L (136-145)
[2022-05-26 19:55] LABS: Procalcitonin 0.15 ng/mL (0-0.5)
[2022-05-26 19:57] VITALS: PULSE 90; RESP 18; O2SAT 99
[2022-05-26 19:58] LABS: Anion Gap 10.9 (5-19); Potassium 3.9 mmol/L (3.5-5.1)
[2022-05-26 20:11] LABS: Platelet Count 19 10^3/cmm (130-400)
[2022-05-26 20:12] LABS: Slide Review Slide Review Perform
== END 2022-05-26 19:58 | disposition home or self-care (01) ==
PROVIDERS: Emergency Medicine; Emergency Provider Emergency Medicine; PCP Nurse Practitioner Family
DX: U07.1 COVID-19 (principal); Z79.82 Long term (current) use of aspirin; F17.210 Nicotine dependence, cigarettes, uncomplicated
CPT/HCPCS: 36415; 71045; 80048; 80503; 84145; 85025; 86140; 87426; 99284

== ENCOUNTER 2022-05-27 11:41 | Inpatient (IN) | payer MEDICARE, MEDICAID, SELFPAY ==
[2022-05-27] VITALS (73 sets, daily range): BP systolic 114–148; BP diastolic 61–80; PULSE 78–113; RESP 16–25; TEMP 36.8–37.1; O2SAT 90–99; BMI 22.6
--- NOTE | 2022-05-27 12:09 | W.ED.WEAKNES ---
HPI - Weakness General: Chief complaint: Weakness Stated complaint: Need infusion Time Seen by Provider: 05/27/22 12:08 History of Present Illness: Ms. Thomas is a 66-year-old lady with recent diagnosis of COVID presenting to the emergency department for abnormal lab. Apparently she presented yesterday and had labs drawn however left or was discharged prior to physician noticing platelet count of 19,000 which is well below the patient's thrombocytopenic baseline. Patient does endorse nosebleeds for the past few days however these have stopped with appropriate treatment and have not been prolonged. Denies other bleeding diatheses. Does have headaches however these may be related to COVID. Intensity symptoms continues to be moderate. Only additional new symptom is nausea today. No other specific changes in health, exacerbating, or alleviating factors identified. Onset (ago): day(s) Severity: moderate Context: recent illness Review of Systems General: Reports: 10 or more systems reviewed and unremarkable except in HPI and below PFSH ED PFSH: Medical History Ankle pain Fibromyalgia Hypothyroidism Nicotine dependence Onychodystrophy Rheumatoid arthritis Surgical History S/P ORIF (open reduction internal fixation) fracture Status post hip surgery Right intertrochanteric hip fracture 06/30 Family History Daughter MTHFR (methylene THF reductase) deficiency and homocystinuria Other Arthritis Social History Smoking and tobacco status: current every day smoker cigarettes Packs smoked per day: 0.5 Alcohol intake: never Housing: House Physical Exam Const: COMMON NORMALS: alert GENERAL APPEARANCE: cooperative, well developed and ill appearing (Somewhat) HENMT: COMMON NORMALS: normocephalic and atraumatic HEAD & SCALP: normocephalic and atraumatic Eye: COMMON NORMALS: conjunctivae normal CONJUNCTIVA: Yes conjunctivae normal SCLERA: sclerae normal Neck/C-Spine: COMMON NORMALS: supple GENERAL: Yes trachea midline Resp: COMMON NORMALS: normal respiratory effort EFFORT & INSPECTION: Yes able to speak in complete sentences Cardio: COMMON NORMALS: regular rate and regular rhythm RATE: regular rate RHYTHM: regular rhythm GI: COMMON NORMALS: Soft to palpation PALPATION: Yes Soft to palpation and No Tenderness to palpation present (GI) Extremity: GENERAL: Yes normal exam except as noted and No edema Neuro: COMMON NORMALS: moves all extremities SENSORIUM/ORIENTATION: Yes alert and No Orientation impaired Psych: COMMON NORMALS: mental status grossly normal and Normal thought process present THOUGHT PROCESS: Normal thought process present Course Vital Signs: Vital signs: Vital Signs Temperature 98.3 F 06/01/22 08:00 Pulse Rate 89 06/01/22 14:03 Respiratory Rate 16 06/01/22 14:01 Blood Pressure 145/74 06/01/22 08:00 Pulse Oximetry 94 06/01/22 14:07 Oxygen Delivery Me thod 06/01/22 14:01 Oxygen Flow Rate 0.5 06/01/22 08:52 MDM - Weakness Medical Decision Making 66-year-old lady presenting due to concern over abnormal laboratory value. Patient has had mild nosebleeds though no active hemorrhage identified on exam. Repeat platelet count is worse at 11,000. CT head negative for acute intracranial pathology. Discussed this with hematology who recommended admission. Most likely etiology is viral due to suppression of bone marrow however we are uncertain of where jimmie will follow and therefore observation inpatient is reasonable given risk of spontaneous hemorrhage if platelet count decreases further. The results of ED evaluation were discussed with the patient including plan for admission due to requirement for level of care not available if discharged to prevent significant worsening/deterioration. Admitting service was contacted and Dr Oneill with the hospital service agreed to admit the patient Patient was admitted without further deterioration or significant events. Medical Records I reviewed the patient's medical records. Lab Data I reviewed the patient's lab results. : 06/01/22 04:03 06/01/22 04:[address] 05/27/22 12:27 IMPRESSION: 1. No CT evidence of acute intracranial pathology. 2. Additional findings, as above. Chest CTA 05/27/22 18:10 IMPRESSION: 1. There is no evidence for pulmonary emboli. 2. Patchy irregular ground-glass opacities are seen predominately within the right upper lobe right middle, to a lesser extent within the lingula, findings suggesting a patchy interstitial pneumonia. There are areas of consolidation seen in the posterior costophrenic recesses bilaterally that may represent atelectasis although a consolidated infiltrates and pneumonia cannot be excluded. 3. Pulmonary nodularity in the left lung base measuring 8.4 mm corresponds to the radiographic findings seen yesterday. For both low risk and high risk patients, consider CT Chest at 3 months, PET/CT, or biopsy. (Reference: Maxi) REFERENCES: Maxi Clinton et al. Guidelines for Management of Incidental Pulmonary Nodules Detected on CT Images: From the Fleischner Society 2017. Radiology. 2017;284(1):228-243. Abdomen Ultrasound 05/28/22 11:25 IMPRESSION: 1. Although the spleen is normal size and there is loss of the normal concavity. This suggests very mild splenomegaly. 2. Otherwise abdomen ultrasound is negative. Laboratory Results WBC 4.3 10^3/uL (4.0-10.0) 05/27/22 12:44 RBC 2.72 10^6/uL (4.1-5.3) L 05/27/22 12:44 Hgb 9.7 g/dL (11.5-15.3) L 05/27/22 12:44 Hct 27.5 % (37.0-47.0) L 05/27/22 12:44 MCV 101.1 fl (81-99) H 05/27/22 12:44 MCH 35.7 pg (28.0-34.0) H 05/27/22 12:44 MCHC 35.3 g/dL (30.0-36.0) 05/27/22 12:44 RDW 15.3 % (12.1-15.1) H 05/27/22 12:44 Plt Count 11 10^3/cmm (130-400) L* D 05/27/22 12:44 MPV 12.2 fL (7.4-10.4) H 05/27/22 12:44 Neut % (Auto) 78.8 % 05/27/22 12:44 Lymph % (Auto) 15.7 % 05/27/22 12:44 Morgan % (Auto) 4.8 % 05/27/22 12:44 Eos % (Auto) 0.0 % 05/27/22 12:44 Baso % (Auto) 0.5 % 05/27/22 12:44 Neut # (Auto) 3.41 10^3/uL (1.8-7.7) 05/27/22 12:44 Lymph # (Auto) 0.7 10^3/uL (0.8-4.8) L 05/27/22 12:44 Morgan # (Auto) 0.2 10^3/uL (0.2-0.9) 05/27/22 12:44 Eos # (Auto) 0.0 10^3/uL (0.0-0.8) 05/27/22 12:44 Baso # (Auto) 0.0 10^3/uL (0.0-0.1) 05/27/22 12:44 Nucleated RBC % (auto) 0 % 05/27/22 12:44 Nucleated RBCs # 0.0 /100WBC 05/27/22 12:44 PT 15.50 SECONDS (12.1-14.9) H 05/27/22 17:09 INR 1.19 (0.8-1.2) 05/27/22 17:09 APTT 39.2 SECONDS (23.9-36.7) H 05/27/22 17:09 Fibrinogen 246 mg/dL (174-498) 05/27/22 17:09 Fibrin Degrad Products Pos, >=40 ug/mL (NEG) H 05/27/22 17:09 D-Dimer 3.76 ug/mIFEU (0-0.59) H 05/27/22 17:09 Sodium 131 mmol/L (136-145) L 05/27/22 12:44 Potassium 4.4 mmol/L (3.5-5.1) 05/27/22 12:44 Chloride 102 mmol/L (98-107) 05/27/22 12:44 Carbon Dioxide 23 mmol/L (22-29) 05/27/22 12:44 Anion Gap 10.4 (5-19) 05/27/22 12:44 BUN 19 mg/dL (8-23) 05/27/22 12:44 Creatinine 0.7 mg/dL (0.5-0.9) 05/27/22 12:44 GFR Calculation 84.0 mL/min (90-130) L 05/27/22 12:44 Glucose 103 mg/dL (65-115) 05/27/22 12:44 Calculated Osmolality 275 mOsm/kg (285-295) L 05/27/22 12:44 Lactic Acid 1.0 mmol/L (0.5-2.2) 05/27/22 12:44 Calcium 8.3 mg/dL (8.5-10.5) L 05/27/22 12:44 Procalcitonin 0.16 ng/mL (0-0.5) 05/27/22 12:44 Blood Type O Positive 05/27/22 12:44 Rho(D) Type Positive 05/27/22 12:44 Antibody Screen Positive 05/27/22 12:44 Antibody Identification Anti-Fya 05/27/22 12:44 Antigen Identification Fya Antigen - NEGATIVE 05/27/22 12:44 Crossmatch See Detail 05/27/22 12:44 Discharge Plan Discharge Patient Disposition: Placed in Observation Admit Provider: Pao Oneill Clinical Impression: COVID-19, Anemia, Thrombocytopenia Discharge Diet: Cardiac Discharge Activity: Resume usual activity Coding Level of Care Code ED Clinical Support Tech for Chg Fwd Exam Comprehensive
--- NOTE | 2022-05-27 12:27 | CTR_ITS ---
PROCEDURE INFORMATION: Exam: CT Head Without Contrast Exam date and time: 05/27/2022 12:46 PM Age: 66 years old Clinical indication: Pain; Headache; Additional info: Headaches, thrombocytopenia TECHNIQUE: Imaging protocol: Computed tomography of the head without contrast. Axial, coronal and sagittal reformatted images were created and reviewed. Radiation optimization: All CT scans at this facility use at least one of these dose optimization techniques: automated exposure control; mA and/or kV adjustment per patient size (includes targeted exams where dose is matched to clinical indication); or iterative reconstruction. COMPARISON: No relevant prior studies available. RADIATION DOSE METRICS: Total DLP (mGy-cm): 955.8 FINDINGS: Brain: Patchy and confluent areas of hypoattenuation in the periventricular and subcortical white matter, consistent with chronic small vessel ischemic disease. No CT evidence of acute intracranial hemorrhage or acute territorial infarction. No significant mass effect or midline shift. Basal cisterns patent. Cerebral ventricles: Prominence of the cortical sulci, cisterns and ventricular system, consistent with cerebral and cerebellar volume loss. Paranasal sinuses: Mild mucosal thickening of the ethmoid air cells and paranasal sinuses. No fluid levels. Mastoid air cells: Grossly unremarkable. Bones/joints: No acute osseous abnormality. Soft tissues: Grossly unremarkable. Vasculature: Calcific atherosclerotic disease in the cavernous internal carotid arteries. CT/CT head wo con* [id number] IMPRESSION: 1. No CT evidence of acute intracranial pathology. 2. Additional findings, as above.
[2022-05-27 12:57] LABS: Basophils % 0.5 %; Hematocrit 27.5 % (37.0-47.0); Hemoglobin 9.7 g/dL (11.5-15.3); Lymphocytes # 0.7 10^3/uL (0.8-4.8); Lymphocytes % 15.7 %; Mean Corpuscular HGB Conc 35.3 g/dL (30.0-36.0); Mean Corpuscular Hemoglobin 35.7 pg (28.0-34.0); Mean Corpuscular Volume 101.1 fl (81-99); Mean Platelet Volume 12.2 fL (7.4-10.4); Monocytes # 0.2 10^3/uL (0.2-0.9); Monocytes % 4.8 %; Neutrophils # 3.41 10^3/uL (1.8-7.7); Neutrophils % 78.8 %; Nucleated Red Blood Cells % 0 %; Red Blood Count 2.72 10^6/uL (4.1-5.3); Red Cell Distribution Width 15.3 % (12.1-15.1); White Blood Count 4.3 10^3/uL (4.0-10.0)
[2022-05-27 13:18] LABS: Anion Gap 10.4 (5-19); Blood Urea Nitrogen 19 mg/dL (8-23); Calcium 8.3 mg/dL (8.5-10.5); Carbon Dioxide 23 mmol/L (22-29); Chloride 102 mmol/L (98-107); Glucose 103 mg/dL (65-115); Osmolality Calculated 275 mOsm/kg (285-295); Potassium 4.4 mmol/L (3.5-5.1); Sodium 131 mmol/L (136-145)
[2022-05-27] MEDS: ondansetron 2 mg/ML SDV 2 mL 4 MG IVP (13:37)
[2022-05-27 13:39] LABS: Slide Review Slide Review Perform
[2022-05-27 13:40] LABS: Platelet Count 11 10^3/cmm (130-400)
[2022-05-27 17:07] LABS: LAB Peripheral Smear Sent for Review
--- NOTE | 2022-05-27 17:15 | PM.HP ---
Providers/Chief Complaint Primary Care Provider: CELINE Garcia Chief Complaint: Need infusion History of Present Illness Lori Thomas is a 66 year old female with past medical history of rheumatoid arthritis, hypothyroidism, recently diagnosed COVID yesterday in the ER being sick for over a week presented to the hospital today because she was called by ER to come in for platelet transfusion. She came to ER yesterday with complaints of cough that has been going on for about a week. This did not improve. was also sick at home with similar symptoms. Denies any fever chills but did report body aches. Denies diarrhea, nausea, vomiting. Denies abdominal complaints. She did see her primary care doctor and was diagnosed with pneumonia and started on a Z-Marcin. Since she was not better she came to the ER. During the ER visit she was positive for COVID and was sent home with Paxilovid.. After patient left it was noted that her platelet count was 19,000 and she was called at home to come back for platelet transfusion however patient was unable to do so and presented today. Today repeat labs were done in the ER showing platelet count of 11,000. Patient denies any bleeding anywhere does not really have any petechiae that she noted. She is also wearing her street clothes and not in a hospital gown at this time. Did examine visible skin with no petechia noted at this point. However unable to do a full skin assessment at this time. Patient has coughing and has daughter at bedside. Seems to have elevated temperature as well. She states she feels really bad and has been coughing badly. He has never had low platelets before. Has no known history of bone marrow problems or diagnosed blood disorders. Patient is reporting some nosebleeds for the past few days but they are not prolonged nosebleeds. They are mainly when she tries to blow her nose. Also has some headaches and otherwise is okay. ED course: Head CT negative for bleed. Chest x-ray did show faint infiltrate versus atelectasis in left lower lobe. Pressure 122/69, respirate 18, pulse 99, temperature 98.5, saturating 94% on room air. Platelet count 11,000. 1 unit of platelets is ready to be transfused however we will hold off on that for now. Medications/Allergies Home Medications Medication Instructions Recorded Confirmed Last Taken Type Accomadative Orthotic #1 ea 08/15/20 05/03/22 Unknown Rx calcium carbonate 600 mg calcium 600 mg PO BID 03/20/21 05/03/22 Unknown History (1,500 mg) tablet (Calcium) flaxseed oil 1,000 mg capsule 1,000 mg PO BID 03/20/21 05/03/22 Unknown History magnesium 250 mg tablet 250 mg PO DAILY 03/20/21 05/03/22 Unknown History tumeric 100 mg-elian 150 mg-olive cap PO 03/20/21 05/03/22 Unknown History 50 mg-oreg 150 mg-caprylate capsule zinc 50 mg tablet 50 mg PO DAILY 03/20/21 05/03/22 Unknown History folic acid 1 mg tablet 1 mg PO DAILY #90 tabs 06/26/21 05/03/22 Unknown Rx Shoes and Accommedative Orthotics #1 ea 02/16/22 05/03/22 Unknown Rx Suppinator to the left and right #1 ea 02/16/22 05/03/22 Unknown Rx ankles methotrexate sodium 2.5 mg tablet See Rx Instructions .Route 03/12/22 05/03/22 Unknown Rx .COMPLEX #32 tabs tramadol 50 mg tablet 50 mg PO DAILY PRN pain #30 tabs 04/27/22 05/03/22 Unknown Rx gabapentin 100 mg capsule 200 mg PO BID #120 caps 05/14/22 Unknown Rx levothyroxine 50 mcg tablet See Rx Instructions .Route 05/21/22 Unknown Rx .COMPLEX #30 tabs naproxen 500 mg tablet See Rx Instructions .Route 05/21/22 Unknown Rx .COMPLEX #60 tabs azithromycin 250 mg tablet See Rx Instructions PO .COMPLEX #6 05/25/22 Unknown Rx (Zithromax Z-Marcin) tabs acetaminophen 500 mg tablet 500 mg PO Q6H PRN pain 5 days #20 05/26/22 05/27/22 Unknown Rx tabs nirmatrelvir 300 mg (150 mg See Rx Instructions PO .COMPLEX 05/26/22 Unknown Rx x2)-ritonavir 100 mg tablet,dose #30 ea pack(EUA) (Paxlovid) alendronate 70 mg tablet 70 mg PO Q7D 05/27/22 05/27/22 Unknown History aspirin 81 mg chewable tablet 81 mg PO DAILY 05/27/22 05/27/22 Unknown History etanercept 50 mg/mL (1 mL) 50 mg SUBCUT Q7D 05/27/22 05/27/22 Unknown History subcutaneous pen injector (Enbrel SureClick) Allergies Allergy/AdvReac Type Severity Reaction Status Date / Time No Known Allergies Allergy Verified 05/26/22 16:36 PFSH Acute PFSH: Medical History Ankle pain Fibromyalgia Hypothyroidism Nicotine dependence Onychodystrophy Rheumatoid arthritis Surgical History S/P ORIF (open reduction internal fixation) fracture Status post hip surgery Right intertrochanteric hip fracture 06/30 Family History Daughter MTHFR (methylene THF reductase) deficiency and homocystinuria Other Arthritis Social History Smoking and tobacco status: current every day smoker cigarettes Packs smoked per day: 0.5 Alcohol intake: never Housing: House Vitals/I&O/Wt Last Vital Signs Temp 98.5 F 05/27/22 11:46 Pulse 90 05/27/22 16:35 Resp 23 H 05/27/22 15:50 BP 132/68 05/27/22 16:35 Pulse Ox 94 05/27/22 15:50 O2 Del Method 05/27/22 11:46 Weight last 48 hrs Weight 54.431 kg Physical Exam Narrative: General: Alert oriented x3, patient seen laying in bed appearing comfortable at this time with daughter at bedside. No respiratory distress however overall appears ill. Very warm to touch forehead. Patient complains of feeling cold and having chills. HEENT: Normocephalic, atraumatic, EOMI, breathing room air at this time. Cardio: Tachycardic, normal S1-S2, Respiratory: Mild rhonchi at bases otherwise clear to auscultation GI: Abdomen soft, nontender, nondistended, bowel sounds + Extremities: Unable to assess. Pulses lower extremities patient is wearing shoes. She is not in a hospital gown yet. Wearing street clothes. Skin visible skin has no petechiae or rashes present. 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 Not bleeding at this time. #COVID-19 pneumonia #Rheumatoid arthritis #Immunocompromised - Avoid NSAIDs, aspirin ? Check PT/INR, DIC profile ? We will hold off on platelet transfusion. ? Start IVIG and steroids - Dexamethasone 40 mg PO daily x4 days - IVIG 1 gm/kg/d single dose to be given. May repeat tomorrow unless platelet count > 50,000 ? If needed to transfuse will transfuse after patient has had at least 1 dose of IVIG and steroids - Discussed above plan with Dr. Ackerman. ? Check peripheral smear however it will not be available that quickly. ? No bleed apparent right now. ? Check CBC in 12 hours ? Continue folic acid ? Continue levothyroxine ? We will stop Paxlovid - Hold methotrexate for today ? DuoNeb every 4 hours as needed ? 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
[2022-05-27 17:35] LABS: INR 1.19 (0.8-1.2)
[2022-05-27 17:36] LABS: Fibrinogen 246 mg/dL (174-498); Partial Thromboplastin Time 39.2 SECONDS (23.9-36.7)
[2022-05-27 17:46] LABS: D Dimer 3.76 ug/mIFEU (0-0.59)
--- NOTE | 2022-05-27 18:10 | CTR_ITS ---
PROCEDURE INFORMATION: Exam: CTA Chest With Contrast Exam date and time: 05/27/2022 11:39 PM Age: 66 years old Clinical indication: Shortness of breath; Additional info: R/O pe TECHNIQUE: Imaging protocol: Computed tomographic angiography of the chest with contrast. 3D rendering (Not supervised by radiologist): MIP and/or 3D reconstructed images were created by the technologist. Radiation optimization: All CT scans at this facility use at least one of these dose optimization techniques: automated exposure control; mA and/or kV adjustment per patient size (includes targeted exams where dose is matched to clinical indication); or iterative reconstruction. Contrast material: OMNI 350; Contrast volume: 70 ml; Contrast route: INTRAVENOUS (IV); COMPARISON: CR (CHEST, ) 05/26/2022 6:24 PM RADIATION DOSE METRICS: Total DLP (mGy-cm): 187.72 FINDINGS: Pulmonary arteries: Normal. No pulmonary emboli. Aorta: Unremarkable. No aortic aneurysm. No aortic dissection. Lungs: There are irregular patchy ground-glass opacities present within the right upper lobe and right middle lobe with minimal patchy opacity seen in lingula, findings that suggest a patchy interstitial pneumonia. There are increased septal markings present in the lung bases bilaterally and mild asymmetric pulmonary edema cannot be entirely excluded. An 8.4 mm pulmonary nodularity is seen in the left lung base laterally. This finding corresponds to yesterday's radiographic finding. There are some patchy opacities present in the posterior costophrenic recesses bilaterally that may represent atelectasis although infiltrates and pneumonia cannot be excluded. Pleural spaces: Unremarkable. No pneumothorax. No pleural effusion. Heart: Unremarkable. No cardiomegaly. No pericardial effusion. Lymph nodes: Multiple small mediastinal lymph nodes are seen. No enlarged lymph nodes. Bones/joints: Unremarkable. No acute fracture. Soft tissues: Unremarkable. CT/CT angio chest PE protcl [id number] IMPRESSION: 1. There is no evidence for pulmonary emboli. 2. Patchy irregular ground-glass opacities are seen predominately within the right upper lobe right middle, to a lesser extent within the lingula, findings suggesting a patchy interstitial pneumonia. There are areas of consolidation seen in the posterior costophrenic recesses bilaterally that may represent atelectasis although a consolidated infiltrates and pneumonia cannot be excluded. 3. Pulmonary nodularity in the left lung base measuring 8.4 mm corresponds to the radiographic findings seen yesterday. For both low risk and high risk patients, consider CT Chest at 3 months, PET/CT, or biopsy. (Reference: Maxi) REFERENCES: Maxi Clinton et al. Guidelines for Management of Incidental Pulmonary Nodules Detected on CT Images: From the Fleischner Society 2017. Radiology. 2017;284(1):228-243.
[2022-05-27 18:16] LABS: Procalcitonin 0.16 ng/mL (0-0.5)
[2022-05-27] MEDS: pantoprazole 40 mg SDV IVP (18:34)
[2022-05-27] MEDS: sodium chloride 0.9% 1,000 ML 60 ML IV (18:40)
[2022-05-27] MEDS: levofloxacin-dextrose 5 % 750 MG/150 ML PREMIX 100 MG IV (18:41)
[2022-05-27] MEDS: ipratropium-albuterol 3 mL Neb INHALATION (20:22)
[2022-05-27 20:50] LABS: Glucose Point of Care 92 mg/dL (70-110)
--- NOTE | 2022-05-27 21:40 | PC.NURSE ---
2104 Patient O2 level on room air while sleeping dropping to 88-89%. Placed patient on 2L NC and is now 95-97%. Will continue to monitor patient.
[2022-05-27] MEDS: iohexol 350 mg/mL 100 mL Btl IV (23:42)
[2022-05-28] VITALS (26 sets, daily range): BP systolic 104–140; BP diastolic 59–72; PULSE 66–86; RESP 16–75; TEMP 36.8–37.3; O2SAT 94–98
[2022-05-28] MEDS: ondansetron 2 mg/ML SDV 2 mL 4 MG IVP ×2 (02:45→10:33)
[2022-05-28] MEDS: ipratropium-albuterol 3 mL Neb INHALATION ×6 (03:10→23:46)
[2022-05-28 04:01] LABS: Basophils % 0.3 %; Hematocrit 23.5 % (37.0-47.0); Hemoglobin 8.2 g/dL (11.5-15.3); Lymphocytes % 30.7 %; Mean Corpuscular HGB Conc 34.9 g/dL (30.0-36.0); Mean Corpuscular Hemoglobin 35.3 pg (28.0-34.0); Mean Corpuscular Volume 101.3 fl (81-99); Mean Platelet Volume 11.5 fL (7.4-10.4); Monocytes # 0.1 10^3/uL (0.2-0.9); Monocytes % 1.9 %; Neutrophils # 2.13 10^3/uL (1.8-7.7); Neutrophils % 66.8 %; Nucleated Red Blood Cells % 0 %; Red Blood Count 2.32 10^6/uL (4.1-5.3); Red Cell Distribution Width 15.4 % (12.1-15.1); White Blood Count 3.2 10^3/uL (4.0-10.0)
[2022-05-28 04:25] LABS: Platelet Count 7 10^3/cmm (130-400); Slide Review Slide Review Perform
[2022-05-28 04:27] LABS: Alanine Aminotransferase 41 U/L (0-33); Albumin Level 2.4 g/dL (3.5-5.2); Alkaline Phosphatase 153 U/L (35-105); Anion Gap 12.1 (5-19); Aspartate Amino Transferase 66 U/L (0-32); Blood Urea Nitrogen 15 mg/dL (8-23); Calcium 7.6 mg/dL (8.5-10.5); Carbon Dioxide 21 mmol/L (22-29); Chloride 103 mmol/L (98-107); Globulin 4.2 g/dL (1.3-4.6); Glucose 104 mg/dL (65-115); Magnesium 1.5 mg/dL (1.7-2.3); Osmolality Calculated 275 mOsm/kg (285-295); Potassium 4.1 mmol/L (3.5-5.1); Sodium 132 mmol/L (136-145); Total Bilirubin 1.4 mg/dL (0.15-1.2); Total Protein 6.6 g/dL (6.6-8.7)
[2022-05-28] MEDS: pantoprazole 40 mg SDV IVP ×2 (05:20→17:09)
[2022-05-28 06:37] LABS: Glucose Point of Care 117 mg/dL (70-110)
[2022-05-28 09:29] LABS: Basophils % 0.4 %; Hematocrit 23.6 % (37.0-47.0); Hemoglobin 8.4 g/dL (11.5-15.3); Lymphocytes # 0.8 10^3/uL (0.8-4.8); Lymphocytes % 28.2 %; Mean Corpuscular HGB Conc 35.6 g/dL (30.0-36.0); Mean Corpuscular Hemoglobin 36.8 pg (28.0-34.0); Mean Corpuscular Volume 103.5 fl (81-99); Mean Platelet Volume 13.3 fL (7.4-10.4); Monocytes # 0.2 10^3/uL (0.2-0.9); Neutrophils # 1.81 10^3/uL (1.8-7.7); Neutrophils % 63.7 %; Nucleated Red Blood Cells % 0 %; Red Blood Count 2.28 10^6/uL (4.1-5.3); Red Cell Distribution Width 15.3 % (12.1-15.1); White Blood Count 2.8 10^3/uL (4.0-10.0)
[2022-05-28] MEDS: levothyroxine 50 mcg Tablet PO (09:29)
[2022-05-28] MEDS: sodium chloride 0.9% (100 ml) 100 ML 10 ML (09:29)
[2022-05-28] MEDS: zinc gluconate 50 mg Tablet PO (09:29)
[2022-05-28] MEDS: dexamethasone 4 mg Tablet 40 MG PO (09:30)
[2022-05-28] MEDS: magnesium sulfate premix 2 GM/50 ML PIGGYBACK IV (09:31)
[2022-05-28] MEDS: folic acid 1 mg Tablet PO (09:31)
[2022-05-28 09:44] LABS: Platelet Count 6 10^3/cmm (130-400)
[2022-05-28 10:05] LABS: Lactate Dehydrogenase 127 U/L (135-214)
[2022-05-28] MEDS: vancomycin 750 MG in sodium chloride 0.9% 250 ML 250 MG IV (10:32)
[2022-05-28] MEDS: piperacillin-tazobactam 3.375 GM in sodium chloride 0.9% (plus) 50 ML IV ×2 (10:32→17:09)
--- NOTE | 2022-05-28 11:25 | US_ITS ---
WS: [id number] Complete ABDOMINAL ULTRASOUND HISTORY: liver and spleen, thrombocytopenia COMPARISON: None available. Liver: 14.6 cm in length. Liver is normal size and echogenicity with no mass or intrahepatic dilatati on. Portal Vein: Normal hepatopetal flow with monophasic waveform. Gallbladder: Normally distended with no gallstones, wall thickening or pericholecystic fluid. Gallbladder wall thickness: 0.2 cm. Pancreas: Normal size and echogenicity. CBD: 0.2 cm. Kidneys are normal size. No hydronephrosis or mass. No cortical thinning. Spleen: Spleen measures 11.8 cm in length. Mild loss of the normal splenic concavity. Transverse diam eter is mildly increased to 6.6 cm. Normal size aorta. IVC is mildly dilated. No ascites. US/US abdomen complete* [id number] IMPRESSION: 1. Although the spleen is normal size and there is loss of the normal concavit y. This suggests very mild splenomegaly. 2. Otherwise abdomen ultrasound is negative.
[2022-05-28 11:33] LABS: Glucose Point of Care 151 mg/dL (70-110)
[2022-05-28] MEDS: sodium chloride 0.9% 1,000 ML 60 ML IV (12:01)
[2022-05-28] MEDS: insulin lispro 100 unit/1 mL SUBCUT ×3 (12:02→20:36)
--- NOTE | 2022-05-28 12:42 | PM.PN ---
Subjective Subjective: Patient was seen this morning, she denies any lightheadedness, no dizziness, no nausea, vomiting, fevers, chills, has a cough Vitals/I&O/Wt Last Vital Signs Temp 98.8 F 05/28/22 11:06 Pulse 75 05/28/22 11:17 Resp 18 05/28/22 11:12 BP 115/61 05/28/22 11:06 Pulse Ox 98 05/28/22 11:12 O2 Del Method 05/28/22 11:12 O2 Flow Rate 2 05/28/22 11:12 05/27/22 05/28/22 05/28/22 22:59 06:59 14:59 Intake Total 231.922 / 231.922 610.228 / 051.338 3914 / 1791 Balance 231.922 / 231.922 610.228 / 760.551 2466 / 1790 Weight last 48 hrs Weight 54.431 kg Physical Exam Const: COMMON NORMALS: no acute distress and patient oriented x3 Resp: COMMON NORMALS: normal respiratory effort, No retractions, No use of accessory muscles and clear to auscultation bilaterally AUSCULTATION: clear to auscultation bilaterally Cardio: COMMON NORMALS: regular rate, regular rhythm, S1 normal heart sound present and S2 normal heart sound present RATE: regular rate RHYTHM: regular rhythm HEART SOUNDS: S1 normal heart sound present and S2 normal heart sound present GI: COMMON NORMALS: Normal to inspection, nondistended, normoactive bowel sounds present and non-tender Extremity: COMMON NORMALS: no pedal edema Neuro: COMMON NORMALS: patient oriented x3 Psych: COMMON NORMALS: mental status grossly normal Data : 05/28/22 09:10 05/28/22 02:45 Micro: Microbiology 05/28/22 09:10 Blood Culture - Preliminary Blood SPECIMEN COLLECTED 05/28/22 09:15 Blood Culture - Preliminary Blood SPECIMEN COLLECTED A&P Assessment and plan (1) COVID: (2) Cough: (3) COVID-19: (4) Thrombocytopenia: (5) Rheumatoid arthritis: Qualifiers: Rheumatoid arthritis location: multiple sites Rheumatoid factor presence: unspecified presence Qualified Code(s): M06.9 - Rheumatoid arthritis, unspecified (6) Hypothyroidism: (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 Not bleeding at this time. #COVID-19 pneumonia #Rheumatoid arthritis #Immunocompromised - Avoid NSAIDs, aspirin ? INR within normal limits, fibrin degradation products elevated, D-dimer 3.76 ? Has received IVIG, has not received Decadron, platelet count 6, she is receiving 2 units packed, will hold another 2 units ? Continue Decadron -Receiving IVIG, second dose - IVIG 1 gm/kg/d single dose to be given. May repeat tomorrow unless platelet count > 50,000 - Discussed above plan with Dr. Ackerman. ? Check peripheral smear however it will not be available that quickly. ? No bleed apparent right now. ? Check CBC in at noon, repeat in 12 hours ? Continue folic acid ? Continue levothyroxine ? We will stop Paxlovid - Hold methotrexate for today ? DuoNeb every 4 hours as needed ? 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
[2022-05-28 13:44] LABS: Add Urine Microscopic? YES; Bacteria Urine TRACE /hpf; Bilirubin Urine Neg (Negative); Blood Urine Neg (Negative); Glucose Urine UA 1+ (Normal); Ketones Urine Negative (Negative); Leukocyte Esterase Urine Negative (Negative); Nitrate Urine Negative (Negative); Protein Urine Trace (Negative); Squamous Epithelial Cell Urine 0-4 /hpf (0-5); Urine Appearance Clear (CLEAR); Urine Color Dark Yellow (Yellow); Urobilinogen Urine 4 mg/dL (Negative); WBC Urine 0-4 /hpf (0-5); pH Urine 6 (5-7)
[2022-05-28 13:45] LABS: Add Urine Culture? No
[2022-05-28 14:48] LABS: LAB Peripheral Smear Sent for Review
[2022-05-28 16:46] LABS: Basophils % 0.4 %; Hematocrit 22.4 % (37.0-47.0); Hemoglobin 7.8 g/dL (11.5-15.3); Lymphocytes # 0.5 10^3/uL (0.8-4.8); Lymphocytes % 18.1 %; Mean Corpuscular HGB Conc 34.8 g/dL (30.0-36.0); Mean Corpuscular Hemoglobin 35.1 pg (28.0-34.0); Mean Corpuscular Volume 100.9 fl (81-99); Mean Platelet Volume 10.4 fL (7.4-10.4); Monocytes # 0.1 10^3/uL (0.2-0.9); Monocytes % 2.8 %; Neutrophils % 78.3 %; Nucleated Red Blood Cells % 0 %; Platelet Count 38 10^3/cmm (130-400); Red Blood Count 2.22 10^6/uL (4.1-5.3); Red Cell Distribution Width 15.2 % (12.1-15.1); White Blood Count 2.8 10^3/uL (4.0-10.0)
[2022-05-28 17:12] LABS: Glucose Point of Care 222 mg/dL (70-110)
[2022-05-28] MEDS: TRAMadol 50 mg Tablet PO (17:54)
[2022-05-28 20:34] LABS: Glucose Point of Care 163 mg/dL (70-110)
[2022-05-28] MEDS: sodium chloride 0.9% (100 ml) 100 ML 30 ML (20:37)
[2022-05-28 22:11] LABS: Hematocrit 21.6 % (37.0-47.0); Hemoglobin 7.8 g/dL (11.5-15.3); Lymphocytes # 0.3 10^3/uL (0.8-4.8); Lymphocytes % 14.5 %; Mean Corpuscular HGB Conc 36.1 g/dL (30.0-36.0); Mean Corpuscular Hemoglobin 37.1 pg (28.0-34.0); Mean Corpuscular Volume 102.9 fl (81-99); Mean Platelet Volume 10.3 fL (7.4-10.4); Monocytes # 0.1 10^3/uL (0.2-0.9); Monocytes % 4.7 %; Neutrophils # 1.72 10^3/uL (1.8-7.7); Neutrophils % 80.3 %; Nucleated Red Blood Cells % 0 %; Platelet Count 51 10^3/cmm (130-400); Red Cell Distribution Width 15.4 % (12.1-15.1); White Blood Count 2.1 10^3/uL (4.0-10.0)
[2022-05-29] VITALS (16 sets, daily range): BP systolic 89–126; BP diastolic 46–68; PULSE 68–97; RESP 16–20; TEMP 36.7–37.3; O2SAT 93–95
[2022-05-29] MEDS: piperacillin-tazobactam 3.375 GM in sodium chloride 0.9% (plus) 50 ML IV ×3 (01:24→17:25)
[2022-05-29] MEDS: ipratropium-albuterol 3 mL Neb INHALATION ×6 (03:10→23:33)
[2022-05-29] MEDS: pantoprazole 40 mg SDV IVP ×2 (05:42→17:28)
[2022-05-29] MEDS: vancomycin 750 MG in sodium chloride 0.9% 250 ML 250 MG IV ×2 (05:44→21:55)
[2022-05-29] MEDS: sodium chloride 0.9% 1,000 ML 60 ML IV ×2 (05:44→21:53)
[2022-05-29 06:33] LABS: Basophils % 0.3 %; Hematocrit 21.4 % (37.0-47.0); Hemoglobin 7.6 g/dL (11.5-15.3); Lymphocytes # 0.4 10^3/uL (0.8-4.8); Lymphocytes % 12.6 %; Mean Corpuscular HGB Conc 35.5 g/dL (30.0-36.0); Mean Corpuscular Hemoglobin 36.4 pg (28.0-34.0); Mean Corpuscular Volume 102.4 fl (81-99); Mean Platelet Volume 10.8 fL (7.4-10.4); Monocytes # 0.1 10^3/uL (0.2-0.9); Monocytes % 2.4 %; Neutrophils # 2.82 10^3/uL (1.8-7.7); Neutrophils % 84.4 %; Nucleated Red Blood Cells % 0 %; Platelet Count 49 10^3/cmm (130-400); Red Blood Count 2.09 10^6/uL (4.1-5.3); Red Cell Distribution Width 15.4 % (12.1-15.1); White Blood Count 3.3 10^3/uL (4.0-10.0)
[2022-05-29 06:39] LABS: Glucose Point of Care 190 mg/dL (70-110)
[2022-05-29 06:47] LABS: INR 1.23 (0.8-1.2)
[2022-05-29 06:55] LABS: Anion Gap 11.8 (5-19); Blood Urea Nitrogen 20 mg/dL (8-23); Calcium 7.8 mg/dL (8.5-10.5); Carbon Dioxide 20 mmol/L (22-29); Chloride 105 mmol/L (98-107); Glomerular Filtration Rate 55.6 mL/min (90-130); Glucose 171 mg/dL (65-115); Osmolality Calculated 283 mOsm/kg (285-295); Potassium 3.8 mmol/L (3.5-5.1); Sodium 133 mmol/L (136-145)
[2022-05-29 06:59] LABS: Creatinine Clr Calc Pharmacy 44.6714
[2022-05-29 07:02] LABS: Procalcitonin 0.16 ng/mL (0-0.5)
[2022-05-29 07:50] LABS: Slide Review Slide Review Perform
[2022-05-29] MEDS: insulin lispro 100 unit/1 mL SUBCUT ×4 (08:24→21:52)
[2022-05-29] MEDS: dexamethasone 4 mg Tablet 40 MG PO (08:25)
[2022-05-29] MEDS: benzonatate 100 mg Capsule PO (08:27)
[2022-05-29] MEDS: folic acid 1 mg Tablet PO (08:27)
[2022-05-29] MEDS: levothyroxine 50 mcg Tablet PO (08:27)
[2022-05-29] MEDS: zinc gluconate 50 mg Tablet PO (08:27)
[2022-05-29 11:30] LABS: Glucose Point of Care 194 mg/dL (70-110)
--- NOTE | 2022-05-29 13:07 | PM.PN ---
Subjective Subjective: Patient was seen this morning, she did not receive the IVIG yesterday morning, but her platelet count is improved to 49,000, no bleeding, no lightheadedness or dizziness, she feels better, no headache, blurry vision, hemoglobin 7.6, no fevers overnight, continues have a cough Vitals/I&O/Wt Last Vital Signs Temp 98.1 F 05/29/22 11:59 Pulse 85 05/29/22 11:59 Resp 16 05/29/22 11:59 BP 123/62 05/29/22 11:59 Pulse Ox 94 05/29/22 11:59 O2 Del Method 05/29/22 11:59 O2 Flow Rate 2 05/28/22 23:46 05/28/22 05/29/22 05/29/22 22:59 06:59 14:59 Intake Total 170.5 / 2228.5 1300 / 3528.5 Output Total 300 / 300 Balance -129.5 / 1928.5 1300 / 3228.5 Data : 05/29/22 05:28 05/29/22 05:28 Micro: Microbiology 05/28/22 13:18 Bacterial Antigens - Final Urine,Clean Catch 05/28/22 09:15 Blood Culture - Preliminary Blood NEGATIVE TO DATE 05/28/22 09:10 Blood Culture - Preliminary Blood NEGATIVE TO DATE A&P Assessment and plan (1) COVID: (2) Cough: (3) COVID-19: (4) Thrombocytopenia: (5) Rheumatoid arthritis: Qualifiers: Rheumatoid arthritis location: multiple sites Rheumatoid factor presence: unspecified presence Qualified Code(s): M06.9 - Rheumatoid arthritis, unspecified (6) Hypothyroidism: (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 Not bleeding at this time. #COVID-19 pneumonia #Rheumatoid arthritis #Immunocompromised - Avoid NSAIDs, aspirin ? INR within normal limits, fibrin degradation products elevated, D-dimer 3.76 ? Has received IVIG, has not received Decadron, platelet count 6, she is receiving 2 units packed, will hold another 2 units ? Continue Decadron -Did not receive second dose of IVIG yesterday, will give it today as platelet count is still less than 50,000 - IVIG 1 gm/kg/d single dose to be given. May repeat tomorrow unless platelet count > 50,000 - Discussed above plan with Dr. Ackerman. ? Check peripheral smear however it will not be available that quickly. ? No bleed apparent right now. ? Check CBC again at 6 PM ? Continue folic acid ? Continue levothyroxine ? We will stop Paxlovid - Hold methotrexate for today ? DuoNeb every 4 hours as needed ? 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
[2022-05-29 16:49] LABS: Glucose Point of Care 202 mg/dL (70-110)
[2022-05-29 18:22] LABS: Hemoglobin 7.3 g/dL (11.5-15.3); Lymphocytes # 0.4 10^3/uL (0.8-4.8); Lymphocytes % 8.2 %; Mean Corpuscular HGB Conc 35.6 g/dL (30.0-36.0); Mean Corpuscular Hemoglobin 36.1 pg (28.0-34.0); Mean Corpuscular Volume 101.5 fl (81-99); Mean Platelet Volume 10.9 fL (7.4-10.4); Monocytes # 0.1 10^3/uL (0.2-0.9); Monocytes % 2.3 %; Neutrophils # 4.24 10^3/uL (1.8-7.7); Neutrophils % 89.1 %; Nucleated Red Blood Cells % 0 %; Platelet Count 47 10^3/cmm (130-400); Red Blood Count 2.02 10^6/uL (4.1-5.3); Red Cell Distribution Width 15.5 % (12.1-15.1); White Blood Count 4.8 10^3/uL (4.0-10.0)
[2022-05-29 19:16] LABS: Hematocrit 20.5 % (37.0-47.0)
[2022-05-29 19:17] LABS: Slide Review Slide Review Perform
[2022-05-29] MEDS: TRAMadol 50 mg Tablet PO (21:12)
[2022-05-30] VITALS (20 sets, daily range): BP systolic 120–142; BP diastolic 56–97; PULSE 76–110; RESP 16–18; TEMP 36.6–37.2; O2SAT 94–97
[2022-05-30] MEDS: piperacillin-tazobactam 3.375 GM in sodium chloride 0.9% (plus) 50 ML IV ×3 (00:28→17:03)
[2022-05-30] MEDS: ondansetron 2 mg/ML SDV 2 mL 4 MG IVP (02:48)
[2022-05-30] MEDS: ipratropium-albuterol 3 mL Neb INHALATION ×6 (03:25→23:56)
--- NOTE | 2022-05-30 04:25 | ECG_ITS ---
[facility] Test Date: 2022-05-30 Pat Name: Lori Thomas Department: Room: 261 Gender: Female Hospital Receptionist: : 1955 Requested By: Linda Mireles Order Number: [id number] Vicky MD: Loc Lackey M.D. Measurements Intervals Hiram Rate: 99 P: 46 NH: 136 QRS: -24 QRSD: 94 T: 68 QT: 354 QTc: 456 Interpretive Statements SINUS RHYTHM BORDERLINE LEFT AXIS DEVIATION [QRS AXIS < -20] MINIMAL ST DEPRESSION [0.025+ mV ST DEPRESSION] Compared to ECG 07/01/2019 16:47:43 ST (T wave) deviation now present Electronically Signed On 05-30-2022 22:00:38 CDT by Loc Lackey M.D. [id number]
[2022-05-30] MEDS: pantoprazole 40 mg SDV IVP ×2 (05:12→17:03)
[2022-05-30 05:23] LABS: INR 1.35 (0.8-1.2)
[2022-05-30 05:36] LABS: Troponin(5th) Baseline 13 ng/L (0-10)
[2022-05-30 05:41] LABS: Anion Gap 12.4 (5-19); Blood Urea Nitrogen 28 mg/dL (8-23); C Reactive Protein 3.3 mg/L (0.0-4.9); Calcium 7.3 mg/dL (8.5-10.5); Carbon Dioxide 18 mmol/L (22-29); Chloride 109 mmol/L (98-107); Glomerular Filtration Rate 45.1 mL/min (90-130); Glucose 178 mg/dL (65-115); Osmolality Calculated 292 mOsm/kg (285-295); Potassium 3.4 mmol/L (3.5-5.1); Sodium 136 mmol/L (136-145)
[2022-05-30 05:44] LABS: Procalcitonin 0.13 ng/mL (0-0.5)
[2022-05-30 06:19] LABS: Hemoglobin 7.1 g/dL (11.5-15.3); Lymphocytes # 0.4 10^3/uL (0.8-4.8); Lymphocytes % 9.3 %; Mean Corpuscular HGB Conc 34.6 g/dL (30.0-36.0); Mean Corpuscular Hemoglobin 35.1 pg (28.0-34.0); Mean Corpuscular Volume 101.5 fl (81-99); Mean Platelet Volume 11.1 fL (7.4-10.4); Monocytes # 0.2 10^3/uL (0.2-0.9); Monocytes % 4.7 %; Neutrophils # 4.04 10^3/uL (1.8-7.7); Neutrophils % 85.4 %; Nucleated Red Blood Cells % 0 %; Platelet Count 53 10^3/cmm (130-400); Red Blood Count 2.02 10^6/uL (4.1-5.3); Red Cell Distribution Width 15.9 % (12.1-15.1); White Blood Count 4.7 10^3/uL (4.0-10.0)
[2022-05-30 06:20] LABS: Slide Review Slide Review Perform
[2022-05-30 06:22] LABS: Hematocrit 20.5 % (37.0-47.0)
[2022-05-30 06:38] LABS: Glucose Point of Care 186 mg/dL (70-110)
[2022-05-30 07:34] LABS: Troponin 5 2HR 12.69 ng/L (0-10)
[2022-05-30 07:37] LABS: Troponin 5 2HR Delta -0.31 ABS# (0-10)
[2022-05-30] MEDS: dexamethasone 4 mg Tablet 40 MG PO (08:45)
[2022-05-30] MEDS: insulin lispro 100 unit/1 mL SUBCUT ×4 (08:45→21:51)
[2022-05-30] MEDS: zinc gluconate 50 mg Tablet PO (08:46)
[2022-05-30] MEDS: levothyroxine 50 mcg Tablet PO (08:46)
[2022-05-30] MEDS: potassium chloride ER 20 mEq Tablet 40 MEQ PO (08:46)
[2022-05-30] MEDS: sodium chloride 0.9% (100 ml) 100 ML 75 ML (10:15)
--- NOTE | 2022-05-30 11:35 | USCV_ITS ---
Lori Thomas Age: 66 Gender: F : 1955 Exam Date: 05/30/2022 14:58 Ordering Phys: Marino Moran MD Technologist: JESUSITA [place] [facility] [place]: SHORTNESS OF BREATH BP: 131 / 97 HR: 97 Rhythm: Sinus Technical Quality: Adequate MEASUREMENTS (Male / Female) Normal Values 2D ECHO LVOT Diameter 2.0 cm LV Ejection Fraction MOD 2C 71.9 % LV Ejection Fraction 2C AL 73.3 % LA Diameter 3.4 cm LA Width 4.1 cm LA Height 4.8 cm RA Width 3.4 cm RA Height 4.2 cm Aorta at Sinotubular Diameter 2.6 cm IVC Diameter 2.0 cm M-MODE Aortic Annulus Diameter 2.7 cm LA Ao Ratio MM 1.3 MV E Point Septal Separation 0.6 cm DOPPLER AV Peak Velocity 201.0 cm/s LVOT Peak Velocity 131.0 cm/s AV Area Cont Eq vti 2.3 cm squared AV Area Cont Eq pk 2.0 cm squared MV Peak Velocity 139.0 cm/s MV Area PHT 3.1 cm squared MV E' Velocity 88.6 cm/s Mitral E to MV E' Ratio 9.7 Mitral E to LV E' Lateral Ratio 8.8 Mitral E to LV E' Septal Ratio 10.7 TR Peak Velocity 245.1 cm/s TR Peak Gradient 24.0 mmHg TR Mean Velocity 199.8 cm/s TR Mean Gradient 16.4 mmHg TR Velocity Time Integral 64.9 cm TV Peak E Velocity 78.0 cm/s Right Atrial Pressure 3.0 mmHg Pulmonary Artery Systolic Pressu 27.0 mmHg PV Peak Velocity 139.0 cm/s RV Acceleration Time 0.2 s RV Ejection Time 0.3 s RV AcT/ET 0.5 FINDINGS Left Ventricle Left ventricle is normal in size. LV systolic function is normal with EF of 55 to 60%. No regional wall motion abnormalities are seen. Right Ventricle Normal in size and function Right Atrium Normal in size Left Atrium Normal in size Mitral Valve Structurally normal mitral valve. Mild mitral regurgitation is seen. Aortic Valve Structurally normal aortic valve. No significant stenosis or regurgitation is seen Tricuspid Valve Trace of tricuspid regurgitation. Insufficient TR jet to evaluate RVSP Pulmonic Valve Not well-visualized Pericardium Grossly normal Aorta Not well-visualized IVC Appears to be normal CONCLUSIONS LV systolic function normal with EF of 55 to 60% Mild mitral regurgitation Trace tricuspid regurgitation No comparison studies are available Alden Álvarez MD (Electronically Signed) Final Date: 30 May 2022 18:07 S
--- NOTE | 2022-05-30 11:38 | USCV_ITS ---
Lori Thomas Age: 66 Gender: F : 1955 Exam Date: 05/30/2022 13:37 Ordering Phys: Marino Moran MD Technologist: CT Exam Location: [facility] – [place] Indication: swelling PROCEDURES: Bilaterally, the common femoral, superficial femoral, profunda femoral, popliteal, posterior tibial, greater saphenous veins, and the peroneal trunk were identified and interrogated in the standard fashion. These veins were found to be easily compressible with spontaneous blood flow. No evidence of insufficiency or thrombus noted. FINDINGS: normal us CONCLUSIONS No evidence of right lower extremity DVT. No evidence of left lower extremity DVT. Aroldo Prasad MD (Electronically Signed) Final Date: 30 May 2022 16:00 S
--- NOTE | 2022-05-30 12:13 | P.CONIM_ITS ---
Providers/Reason For Consult Consulting Physician/Specialty*: Laureen Barger DO, telenephrology Reason for Consult*: Acute kidney injury Requesting Physician: Marino Moran MD Attending Physician: Marino Moran MD Primary Care Provider: CELINE Garcia History of Present Illness History of Present Illness Lori Thomas is a 66 year old female admitted with COVID and ITP. Serum Cr has increased each day since admission. Received contrast for CTA. Reports good urine output. Urine is not being recorded. Review of Systems Narrative: + weakness Resp: Reports: dyspnea Medications/Allergies Home Medications Medication Instructions Recorded Confirmed Last Taken Type Accomadative Orthotic #1 ea 08/15/20 05/27/22 Unknown Rx calcium carbonate 600 mg calcium 600 mg PO BID 03/20/21 05/27/22 Unknown History (1,500 mg) tablet (Calcium) flaxseed oil 1,000 mg capsule 1,000 mg PO BID 03/20/21 05/27/22 05/24/22 History magnesium 250 mg tablet 250 mg PO DAILY 03/20/21 05/27/22 05/24/22 History tumeric 100 mg-elian 150 mg-olive 1 cap PO DAILY 03/20/21 05/27/22 05/24/22 History 50 mg-oreg 150 mg-caprylate capsule zinc 50 mg tablet 50 mg PO DAILY 03/20/21 05/27/22 05/24/22 History folic acid 1 mg tablet 1 mg PO DAILY #90 tabs 06/26/21 05/27/22 05/24/22 Rx Shoes and Accommedative Orthotics #1 ea 02/16/22 05/27/22 Unknown Rx Suppinator to the left and right #1 ea 02/16/22 05/27/22 Unknown Rx ankles methotrexate sodium 2.5 mg tablet See Rx Instructions .Route 03/12/22 05/27/22 05/20/22 Rx .COMPLEX #32 tabs tramadol 50 mg tablet 50 mg PO DAILY PRN pain #30 tabs 04/27/22 05/27/22 Unknown Rx gabapentin 100 mg capsule 200 mg PO BID #120 caps 05/14/22 05/27/22 05/24/22 Rx levothyroxine 50 mcg tablet See Rx Instructions .Route 05/21/22 05/27/22 05/24/22 Rx .COMPLEX #30 tabs naproxen 500 mg tablet See Rx Instructions .Route 05/21/22 05/27/22 Unknown Rx .COMPLEX #60 tabs azithromycin 250 mg tablet See Rx Instructions PO .COMPLEX #6 05/25/22 05/27/22 Unknown Rx (Zithromax Z-Marcin) tabs acetaminophen 500 mg tablet 500 mg PO Q6H PRN pain 5 days #20 05/26/22 05/27/22 Unknown Rx tabs nirmatrelvir 300 mg (150 mg See Rx Instructions PO .COMPLEX 05/26/22 05/27/22 Unknown Rx x2)-ritonavir 100 mg tablet,dose #30 ea pack(EUA) (Paxlovid) alendronate 70 mg tablet 70 mg PO Q7D 05/27/22 05/27/22 Unknown History aspirin 81 mg chewable tablet 81 mg PO DAILY 05/27/22 05/27/22 Unknown History etanercept 50 mg/mL (1 mL) 50 mg SUBCUT Q7D 05/27/22 05/27/22 Unknown History subcutaneous pen injector (Enbrel SureClick) Allergies Allergy/AdvReac Type Severity Reaction Status Date / Time No Known Allergies Allergy Verified 05/26/22 16:36 Current Medications Generic Name Dose Route Start Last Admin Trade Name Freq PRN Reason Stop Dose Admin Albuterol/Ipratropium 3 ml 05/27/22 20:00 05/30/22 11:16 Ipratropium-Albuterol 3 Ml Neb INHALATION 3 ml Q4H.RESPIRATORY RADHA Administration Benzonatate 100 mg 05/28/22 10:42 05/29/22 08:27 Benzonatate 100 Mg Capsule PO 100 mg TID PRN Administration COUGH Dexamethasone 40 mg 05/28/22 09:00 05/30/22 08:45 Dexamethasone 4 Mg Tablet PO 05/31/22 09:01 40 mg Q24H RADHA Administration Folic Acid 1 mg 05/28/22 09:00 05/30/22 08:54 Folic Acid 1 Mg Tablet PO Not Given DAILY RADHA Sodium Chloride 1,000 mls @ 100 mls/hr 05/27/22 18:10 05/30/22 09:47 Sodium Chloride 0.9% IV 100 mls/hr .Q10H RADHA Infusion Piperacillin Sod/Tazobactam 50 mls @ 12.5 mls/hr 05/28/22 09:00 05/30/22 08:46 Sod 3.375 gm/ Sodium Chloride IV 12.5 mls/hr Q8H RADHA Administration Protocol As Directed Insulin Human Lispro 0 unit 05/27/22 18:00 05/30/22 08:45 Insulin Lispro 100 Unit/1 Ml SUBCUT 4 unit WM&BEDTIME RADHA Administration Protocol Levothyroxine Sodium 50 mcg 05/28/22 09:00 05/30/22 08:46 Levothyroxine 50 Mcg Tablet PO 50 mcg DAILY RADHA Administration Non-Formulary Medication 1 tab 05/28/22 09:00 05/30/22 08:54 Vit [id number] Fact-Fa Cmb #2 [Intrinsi [id number]] PO Not Given DAILY RADHA Ondansetron HCl 4 mg 05/28/22 00:15 05/30/22 02:48 Ondansetron 2 Mg/Ml Sdv 2 Ml IVP 4 mg Q4H PRN Administration NAUSEA AND VOMITING Pantoprazole Sodium 40 mg 05/27/22 18:10 05/30/22 05:12 Pantoprazole 40 Mg Sdv IVP 40 mg Q12H RADHA Administration Tramadol HCl 50 mg 05/27/22 18:10 05/29/22 21:12 Tramadol 50 Mg Tablet PO 50 mg DAILY PRN Administration pain Zinc Gluconate 50 mg 05/28/22 09:00 05/30/22 08:46 Zinc Gluconate 50 Mg Tablet PO 50 mg DAILY RADHA Administration PFSH Acute PFSH: Medical History Ankle pain Fibromyalgia Hypothyroidism Nicotine dependence Onychodystrophy Rheumatoid arthritis Surgical History S/P ORIF (open reduction internal fixation) fracture Status post hip surgery Right intertrochanteric hip fracture 06/30 Family History Daughter MTHFR (methylene THF reductase) deficiency and homocystinuria Other Arthritis Social History Smoking and tobacco status: current every day smoker cigarettes Packs smoked per day: 0.5 Alcohol intake: never Housing: House Vitals/I&O/Wt Last Vital Signs Temp 97.8 F 10/19/22 11:16 Pulse 89 05/30/22 11:29 Resp 16 05/30/22 11:25 BP 138/68 05/30/22 11:16 Pulse Ox 97 05/30/22 11:25 O2 Del Method 05/30/22 11:25 O2 Flow Rate 2 05/30/22 08:00 05/29/22 05/30/22 05/30/22 22:59 06:59 14:59 Intake Total 1654.260 / 1704.260 644.74 / 2349.000 714 / 714 Balance 1654.260 / 1704.260 644.74 / 2349.000 714 / 714 Data : 05/30/22 04:35 05/30/22 04:35 Other Labs: Calcium 7.3, LFTs abnomral admission urinalysis unremarkable Micro: Microbiology 05/28/22 10:54 MRSA Culture - Final Nose 05/28/22 13:18 Bacterial Antigens - Final Urine,Clean Catch 05/28/22 09:15 Blood Culture - Preliminary Blood NEGATIVE TO DATE 05/28/22 09:10 Blood Culture - Preliminary Blood NEGATIVE TO DATE US: Radiologist's impression: 05/28/22 Kidneys are normal size. No hydronephrosis or mass. No cortical thinning Other data: seen via telemedicine with assitance of RN at bedside A&P Assessment and plan (1) Acute kidney injury: Plan 1. Acute kidney injury possibly due to COVID, contrast 2. Hypokalemia 3. Hyponatremia, resolved 4. ITP, platelets improving Recommend: Accurate Is/Os, repeat urinalysis, check CK, urine sodium. Replace KCL. Repeat LFTS Consult Attestations Medical Necessity Statement: see above Time Spent in Patient Care: 16 - 35 minutes Coding Level of Care Code Acute Marble Finisher for Diana Shahid Diagnoses Acute kidney injury N17.9
[2022-05-30 12:16] LABS: Glucose Point of Care 206 mg/dL (70-110)
[2022-05-30] MEDS: sodium chloride 0.9% 1,000 ML 100 ML IV ×2 (12:58→23:31)
[2022-05-30 13:08] LABS: Reticulocyte % 0.8 % (0.5-2.0)
[2022-05-30 13:22] LABS: Lactate Dehydrogenase 162 U/L (135-214)
[2022-05-30] MEDS: doxycycline 100 MG in sodium chloride 0.9% (plus) 100 ML IV (13:25)
--- NOTE | 2022-05-30 14:02 | P.PN_ITS ---
Subjective Subjective: Patient was seen this morning, her family members are at bedside, she tells me that she had episode of chest pain throughout the night, none currently, no lightheadedness, dizziness, no shortness of breath currently he denies any prior cardiovascular history continues to feel tired, Vitals/I&O/Wt Last Vital Signs Temp 98.3 F 05/30/22 11:50 Pulse 96 05/30/22 11:50 Resp 16 05/30/22 11:50 BP 131/97 05/30/22 11:50 Pulse Ox 97 05/30/22 11:25 O2 Del Method 05/30/22 11:25 O2 Flow Rate 2 05/30/22 08:00 05/29/22 05/30/22 05/30/22 22:59 06:59 14:59 Intake Total 1654.260 / 1704.260 644.74 / 2349.000 1760 / 1760 Balance 1654.260 / 1704.260 644.74 / 2349.000 1760 / 1760 Physical Exam Const: COMMON NORMALS: no acute distress and patient oriented x3 Resp: COMMON NORMALS: normal respiratory effort, No retractions, No use of accessory muscles and clear to auscultation bilaterally AUSCULTATION: clear to auscultation bilaterally Cardio: COMMON NORMALS: regular rate, regular rhythm, S1 normal heart sound p resent and S2 normal heart sound present RATE: regular rate RHYTHM: regular rhythm HEART SOUNDS: S1 normal heart sound present and S2 normal heart sound present GI: COMMON NORMALS: Normal to inspection, nondistended, normoactive bowel sounds present and non-tender Extremity: COMMON NORMALS: no pedal edema Neuro: COMMON NORMALS: patient oriented x3 Psych: COMMON NORMALS: mental status grossly normal Data : 05/30/22 04:35 05/30/22 04:35 Micro: Microbiology 05/28/22 10:54 MRSA Culture - Final Nose 05/28/22 13:18 Bacterial Antigens - Final Urine,Clean Catch 05/28/22 09:15 Blood Culture - Preliminary Blood NEGATIVE TO DATE 05/28/22 09:10 Blood Culture - Preliminary Blood NEGATIVE TO DATE A&P Assessment and plan (1) COVID: (2) Cough: (3) COVID-19: (4) Thrombocytopenia: (5) Rheumatoid arthritis: Qualifiers: Rheumatoid arthritis location: multiple sites Rheumatoid factor presence: unspecified presence Qualified Code(s): M06.9 - Rheumatoid arthritis, unspecified (6) Hypothyroidism: (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 Not bleeding at this time. #COVID-19 pneumonia #Rheumatoid arthritis #Immunocompromised - Avoid NSAIDs, aspirin ? INR within normal limits, fibrin degradation products elevated, D-dimer 3.76 ? Has received IVIG x2 ? Continue Decadron -Status post 3 units of platelets -Hemoglobin today 7.1, could be due to IVIG, will give 1 unit PRBC, check hemolytic labs - Discussed above plan with Dr. Ackerman. ? Check peripheral smear, shows pancytopenia ? No bleed apparent right now. ? Monitor CBC ? Continue folic acid ? Continue levothyroxine ? We will stop Paxlovid - Hold methotrexate for today -Patient declines remdesivir ? DuoNeb every 4 hours as needed ? 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
--- NOTE | 2022-05-30 15:41 | PC.SOCIAL ---
Pg 2 IMM Explained to pt Pg 2 IMM. No questions voiced. Provided pt a copy. Initialed, dated, & timed a copy & placed in chart.
[2022-05-30 16:16] LABS: Glucose Point of Care 183 mg/dL (70-110)
[2022-05-30 16:34] LABS: Hematocrit 25.4 % (37.0-47.0); Hemoglobin 8.7 g/dL (11.5-15.3)
[2022-05-30 17:11] LABS: D Dimer 3.94 ug/mIFEU (0-0.59)
[2022-05-30 18:28] LABS: Bilirubin Urine Neg (Negative); Blood Urine Neg (Negative); Glucose Urine UA Norm (Normal); Ketones Urine 1+ (Negative); Leukocyte Esterase Urine Negative (Negative); Nitrate Urine Negative (Negative); Protein Urine Trace (Negative); Specific Gravity, Urine 1.015 (1.005-1.030); Urine Appearance Clear (CLEAR); Urine Color Yellow (Yellow); Urobilinogen Urine 1 mg/dL (Negative); pH Urine 6 (5-7)
[2022-05-30 18:35] LABS: Creatinine Urine, Random 106 mg/dL (28-217)
[2022-05-30 18:36] LABS: Add Urine Culture? No; Squamous Epithelial Cell Urine 0-4 /hpf (0-5); Urine Random Sodium 16 mmol/L
[2022-05-30] MEDS: polyethylene glycol 3350 Pkt 17 gm PO (21:47)
[2022-05-30 23:15] LABS: Glucose Point of Care 149 mg/dL (70-110)
[2022-05-31] VITALS (9 sets, daily range): BP systolic 136–150; BP diastolic 67–84; PULSE 88–102; RESP 16–22; TEMP 36.7–37; O2SAT 93–96
[2022-05-31] MEDS: doxycycline 100 MG in sodium chloride 0.9% (plus) 100 ML IV ×2 (01:25→14:45)
[2022-05-31] MEDS: piperacillin-tazobactam 3.375 GM in sodium chloride 0.9% (plus) 50 ML IV ×3 (02:13→17:44)
[2022-05-31 04:27] LABS: Hematocrit 24.4 % (37.0-47.0); Hemoglobin 8.4 g/dL (11.5-15.3); Lymphocytes # 0.4 10^3/uL (0.8-4.8); Lymphocytes % 11.6 %; Mean Corpuscular HGB Conc 34.4 g/dL (30.0-36.0); Mean Corpuscular Hemoglobin 35.1 pg (28.0-34.0); Mean Corpuscular Volume 102.1 fl (81-99); Mean Platelet Volume 11.5 fL (7.4-10.4); Monocytes # 0.4 10^3/uL (0.2-0.9); Monocytes % 13.4 %; Neutrophils # 2.45 10^3/uL (1.8-7.7); Neutrophils % 74.4 %; Nucleated Red Blood Cells % 0 %; Platelet Count 59 10^3/cmm (130-400); Positive M 1; Red Blood Count 2.39 10^6/uL (4.1-5.3); Red Cell Distribution Width 18.7 % (12.1-15.1); White Blood Count 3.3 10^3/uL (4.0-10.0)
[2022-05-31 04:47] LABS: Alanine Aminotransferase 50 U/L (0-33); Albumin Level 2.4 g/dL (3.5-5.2); Alkaline Phosphatase 135 U/L (35-105); Anion Gap 13.3 (5-19); Aspartate Amino Transferase 64 U/L (0-32); Blood Urea Nitrogen 26 mg/dL (8-23); Calcium 7.3 mg/dL (8.5-10.5); Carbon Dioxide 17 mmol/L (22-29); Chloride 114 mmol/L (98-107); Creatine Phosphokinase 120 U/L (26-192); Globulin 4.9 g/dL (1.3-4.6); Glomerular Filtration Rate 55.6 mL/min (90-130); Glucose 135 mg/dL (65-115); Magnesium 2.2 mg/dL (1.7-2.3); Osmolality Calculated 297 mOsm/kg (285-295); Phosphorus 1.5 mg/dL (2.5-4.5); Potassium 4.3 mmol/L (3.5-5.1); Sodium 140 mmol/L (136-145); Total Bilirubin 1.4 mg/dL (0.15-1.2); Total Protein 7.3 g/dL (6.6-8.7)
[2022-05-31 04:50] LABS: Procalcitonin 0.08 ng/mL (0-0.5)
[2022-05-31 04:58] LABS: Creatinine Clr Calc Pharmacy 44.6714
[2022-05-31 05:01] LABS: INR 1.43 (0.8-1.2)
[2022-05-31] MEDS: pantoprazole 40 mg SDV IVP ×2 (05:46→17:45)
[2022-05-31 06:42] LABS: Glucose Point of Care 152 mg/dL (70-110)
[2022-05-31] MEDS: insulin lispro 100 unit/1 mL SUBCUT ×3 (08:30→21:23)
[2022-05-31] MEDS: dexamethasone 4 mg Tablet 40 MG PO (08:30)
[2022-05-31] MEDS: levothyroxine 50 mcg Tablet PO (08:31)
[2022-05-31] MEDS: zinc gluconate 50 mg Tablet PO (08:31)
--- NOTE | 2022-05-31 10:09 | PM.PN ---
Subjective Subjective: Patient was seen this morning, she feels better, afebrile overnight, no lightheadedness, dizziness, denies any chest pain Vitals/I&O/Wt Last Vital Signs Temp 98.5 F 05/31/22 08:00 Pulse 92 05/31/22 08:51 Resp 18 05/31/22 08:51 BP 146/79 05/31/22 08:00 Pulse Ox 96 05/31/22 08:51 O2 Del Method 05/31/22 08:51 O2 Flow Rate 2 05/30/22 08:00 05/30/22 05/31/22 05/31/22 22:59 06:59 14:59 Intake Total 1050 / 2910 150 / 3060 Output Total 370 / 370 300 / 670 Balance 680 / 2540 -150 / 2390 Physical Exam Const: COMMON NORMALS: no acute distress and patient oriented x3 Resp: COMMON NORMALS: normal respiratory effort, No retractions, No use of accessory muscles and clear to auscultation bilaterally AUSCULTATION: clear to auscultation bilaterally Cardio: COMMON NORMALS: regular rate, regular rhythm, S1 normal heart sound present and S2 normal heart sound present RATE: regular rate RHYTHM: regular rhythm HEART SOUNDS: S1 normal heart sound present and S2 normal heart sound present GI: COMMON NORMALS: Normal to inspection, nondistended, normoactive bowel sounds present, non-tender and no masses Extremity: COMMON NORMALS: no pedal edema Neuro: COMMON NORMALS: patient oriented x3 Psych: COMMON NORMALS: mental status grossly normal Data : 05/31/22 03:10 05/31/22 03:10 A&P Assessment and plan (1) COVID: (2) Cough: (3) COVID-19: (4) Thrombocytopenia: (5) Rheumatoid arthritis: Qualifiers: Rheumatoid arthritis location: multiple sites Rheumatoid factor presence: unspecified presence Qualified Code(s): M06.9 - Rheumatoid arthritis, unspecified (6) Hypothyroidism: (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 Not bleeding at this time. #Elevated INR #NAEEM #COVID-19 pneumonia #Rheumatoid arthritis #Immunocompromised - Avoid NSAIDs, aspirin ? Elevated INR and D-dimer no shortness of breath complaints, venous ultrasound negative for DVT ? Has received IVIG x2 ? Continue Decadron for 5 days -Status post 3 units of platelets -Hemoglobin today 8.4, could be due to IVIG, hemolytic labs WNL, s/p 1 unit PRBC - Discussed above plan with Dr. Ackerman. ? Check peripheral smear, shows pancytopenia ? No bleed apparent right now. ? Monitor CBC ? Continue folic acid ? Continue levothyroxine ? We will stop Paxlovid - Hold methotrexate for today -Patient declines remdesivir ? DuoNeb every 4 hours as needed ? 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
--- NOTE | 2022-05-31 12:45 | P.PN_ITS ---
Subjective Subjective: feeling better today eating well good urine output Vitals/I&O/Wt Last Vital Signs Temp 98.3 F 05/31/22 12:00 Pulse 89 05/31/22 12:00 Resp 17 05/31/22 12:00 BP 136/67 05/31/22 12:00 Pulse Ox 96 05/31/22 12:00 O2 Del Method 05/31/22 12:00 O2 Flow Rate 2 05/30/22 08:00 05/30/22 05/31/22 05/31/22 22:59 06:59 14:59 Intake Total 1050 / 2910 150 / 3060 1000 / 1000 Output Total 370 / 370 300 / 670 Balance 680 / 2540 -150 / 2390 1000 / 1000 Physical Exam Const: COMMON NORMALS: no acute distress and alert Neuro: SENSORIUM/ORIENTATION: Yes alert Data : 05/31/22 03:10 05/31/22 03:10 Other Labs: phos 1.5 urine Na < 20, FeNa <<1% A&P Assessment and plan (1) Acute kidney injury: seen via telemedicine with assitance of RN at bedside Plan 1. Acute kidney injury possibly due to COVID, contrast. urine indices support prerenal or ISMAEL, although only accurate if she was oliguric. Renal function improving 2. Hypophosphatemia 3. ITP, platelets and Hb stable Recommend: IVF hydration. replace phophorus po. hold on sodium bicarbonate, clinically she appears to have respiratory alk Attestations Medical Necessity Statement*: see above Time Spent in Patient Care: 16 - 35 minutes Coding Level of Care Code Acute Traveling Inventory Associate for Diana Shahid Diagnoses Acute kidney injury N17.9
[2022-05-31 13:15] LABS: Glucose Point of Care 138 mg/dL (70-110)
[2022-05-31] MEDS: phosphorus 250 mg Tablet PO ×2 (14:45→21:23)
[2022-05-31 17:27] LABS: Glucose Point of Care 171 mg/dL (70-110)
[2022-05-31] MEDS: sodium chloride 0.9% 1,000 ML 100 ML IV (19:11)
[2022-06-01] VITALS (8 sets, daily range): BP systolic 123–163; BP diastolic 71–79; PULSE 67–99; RESP 15–24; TEMP 36.4–37.2; O2SAT 91–96
[2022-06-01] MEDS: doxycycline 100 MG in sodium chloride 0.9% (plus) 100 ML IV (00:17)
[2022-06-01] MEDS: sodium chloride 0.9% 1,000 ML 100 ML IV (00:17)
[2022-06-01] MEDS: piperacillin-tazobactam 3.375 GM in sodium chloride 0.9% (plus) 50 ML IV ×2 (01:26→10:29)
[2022-06-01 05:01] LABS: Hematocrit 25.9 % (37.0-47.0); Lymphocytes # 0.4 10^3/uL (0.8-4.8); Lymphocytes % 15.2 %; Mean Corpuscular HGB Conc 34.7 g/dL (30.0-36.0); Mean Corpuscular Hemoglobin 34.9 pg (28.0-34.0); Mean Corpuscular Volume 100.4 fl (81-99); Mean Platelet Volume 10.4 fL (7.4-10.4); Monocytes # 0.9 10^3/uL (0.2-0.9); Monocytes % 32.2 %; Neutrophils # 1.35 10^3/uL (1.8-7.7); Neutrophils % 51.1 %; Nucleated Red Blood Cells % 0.8 %; Platelet Count 65 10^3/cmm (130-400); Red Blood Count 2.58 10^6/uL (4.1-5.3); Red Cell Distribution Width 18.3 % (12.1-15.1); White Blood Count 2.6 10^3/uL (4.0-10.0)
[2022-06-01] MEDS: pantoprazole 40 mg SDV IVP (05:33)
[2022-06-01 05:42] LABS: Anion Gap 12.1 (5-19); Blood Urea Nitrogen 26 mg/dL (8-23); Calcium 7.3 mg/dL (8.5-10.5); Carbon Dioxide 18 mmol/L (22-29); Chloride 115 mmol/L (98-107); Glomerular Filtration Rate 62.8 mL/min (90-130); Glucose 121 mg/dL (65-115); Magnesium 2.2 mg/dL (1.7-2.3); Osmolality Calculated 298 mOsm/kg (285-295); Phosphorus 1.7 mg/dL (2.5-4.5); Potassium 4.1 mmol/L (3.5-5.1); Sodium 141 mmol/L (136-145)
[2022-06-01] MEDS: ondansetron 2 mg/ML SDV 2 mL 4 MG IVP (06:50)
--- NOTE | 2022-06-01 07:01 | PC.NURSE ---
Bedside Report given to Naman ASTUDILLO at this time
[2022-06-01] MEDS: ipratropium-albuterol 3 mL Neb INHALATION (08:36)
--- NOTE | 2022-06-01 08:54 | PC.RESP ---
Pt. SOB and wheezes refusing treatment due to N/V. talked her into treatment. no N/V heena well. pt. stated it was better.
[2022-06-01] MEDS: insulin lispro 100 unit/1 mL SUBCUT (10:28)
[2022-06-01] MEDS: zinc gluconate 50 mg Tablet PO (10:30)
[2022-06-01] MEDS: phosphorus 250 mg Tablet PO (10:30)
[2022-06-01] MEDS: dexamethasone 4 mg Tablet 40 MG PO (10:30)
[2022-06-01] MEDS: folic acid 1 mg Tablet PO (10:31)
[2022-06-01] MEDS: levothyroxine 50 mcg Tablet PO (10:31)
[2022-06-01 11:04] LABS: Glucose Point of Care 144 mg/dL (70-110)
--- NOTE | 2022-06-01 11:32 | PC.SOCIAL ---
IMM Updated Updated pt's daughter on IMM. No questions voiced. Provided pt a copy. Initialed, dated, & timed copy in chart.
[2022-06-01] MEDS: FUROsemide 10 mg/mL SDV 2mL 20 MG IVP (11:34)
--- NOTE | 2022-06-01 11:46 | P.DS_ITS ---
Discharge Providers Date of Admission: 05/27/22 18:10 Date of Discharge: June 01, 2022 Attending Provider at Admission: Pao Oneill MD Attending Provider at Discharge: Marino Moran MD Primary Care Provider: CELINE Garcia Diagnoses at Discharge Discharge Diagnosis (1) Acute kidney injury: Status: Acute Reason for Visit Reason for Visit: Need infusion Hospital Course Hospital Course This is a 66-year-old female with a past medical history of rheumatoid arthritis, on Enbrel, methotrexate, hype with him, naproxen, who presents to [facility] due to weakness, Patient was admitted to [facility] for pancytopenia, secondary to CO VID-19 pneumonia, 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 Patient was admitted to [facility], received 2 doses of IVIG, Decadron for 5 days, 2 units platelets, 1 unit PRBC, broad-spectrum antibiotic therapy, and clinically monitored. Patient's peripheral smear showed pancytopenia, hemolytic labs were within normal limits, venous ultrasound was negative for DVT, CT angiogram was negative for pulmonary embolism. Patient was clinically monitored, overall clinically improved, remained afebrile, cultures remain negative, white blood cell count on discharge was 2.6, hemoglobin 9.0, platelet count 65,000. Patient will be discharged with close follow-up with primary care provider as outpatient, follow-up with hematology oncology in 2 to 4 weeks. She was advised if she develops any high-grade fevers to go to emergency room, if she develops any bloody or black stools, or any uncontrolled bleeding go to the emergency room In terms of COVID-19 infection, patient had used Paxil that before coming to the hospital, she declined remdesivir here in the hospital, although her cultures have been unremarkable. Patient was advised to continue to hydrate well, continue to self isolate, socially distance, for at least 2 weeks. Discharged with albuterol, Advair, Tessalon Perles, doxycycline. In terms of her risk of hypercoagulable events, she was advised she has an increased risk of hypercoagulable events, however given her anemia and thrombocytopenia anticoagulation is relatively contraindicated. Nonetheless she should continue her aspirin 81 mg once daily. If she were to develop any hypercoagulable events including but not limited to chest pain, calf pain or calf swelling which is evidence of DVT, or sudden onset shortness of breath hemoptysis which is evid ence of pulm embolism come to the emergency room immediately. She was advised to continue to be mobile and, monitor for signs of hypercoagulable events. Patient also developed acute kidney injury during her hospitalization, resolved with IV fluids, likely secondary COVID-19 infection, and contrast-induced nephropathy She also had chest pain during hospitalization, EKG did show some minimal ST depressions, no significant troponin elevation, echocardiogram showed no significant wall motion abnormalities, she was advised to continue to take aspirin, if she were to have any recurrent episodes of chest pain, to come to the emergency room immediately Physical Exam Const: COMMON NORMALS: no acute distress and patient oriented x3 Resp: COMMON NORMALS: normal respiratory effort, No retractions, No use of accessory muscles and clear to auscultation bilaterally AUSCULTATION: clear to auscultation bilaterally Cardio: COMMON NORMALS: regular rate, regular rhythm, S1 normal heart sound present and S2 normal heart sound present RATE: regular rate RHYTHM: regular rhythm HEART SOUNDS: S1 normal heart sound present and S2 normal heart sound present GI: COMMON NORMALS: Normal to inspection, nondistended, normoactive bowel sounds present and non-tender Extremity: COMMON NORMALS: no pedal edema Neuro: COMMON NORMALS: patient oriented x3 Psych: COMMON NORMALS: mental status grossly normal Discharge Data Studies Completed and Pending Completed Studies During Hospitalization Category Date Time Status CT angio chest PE protcl [id number] Routine Cat Scan 05/27/22 18:[address] head wo con* [id number] Stat Cat Scan 05/27/22 12:27 [place] [id number] Routine Ultrasound 05/30/22 11:38 Completed CV. echo complete* [id number] Routine Ultrasound 05/30/22 11:35 Completed US abdomen complete* [id number] Routine Ultrasound 05/28/22 11:25 Completed Pending at discharge Category Date Time Status Basic Metabolic Panel AM LABS Lab 06/02/22 04:00 Ordered Basic Metabolic Panel AM LABS Lab 06/03/22 04:00 Ordered Blood Culture Stat Lab 05/28/22 09:10 Results Complete Blood Count w/Auto AM LABS Lab 06/02/22 04:00 Ordered Complete Blood Count w/Auto AM LABS Lab 06/03/22 04:00 Ordered Sputum Culture and Gram Stain Stat Lab 05/28/22 08:28 Uncollected Tick Panel Stat Lab 05/31/22 11:07 Received Radiology Impressions Head CT 05/27/22 12:27 IMPRESSION: 1. No CT evidence of acute intracranial pathology. 2. Additional findings, as above. Chest CTA 05/27/22 18:10 IMPRESSION: 1. There is no evidence for pulmonary emboli. 2. Patchy irregular ground-glass opacities are seen predominately within the right upper lobe right middle, to a lesser extent within the lingula, findings suggesting a patchy interstitial pneumonia. There are areas of consolidation seen in the posterior costophrenic recesses bilaterally that may represent atelectasis although a consolidated infiltrates and pneumonia cannot be excluded. 3. Pulmonary nodularity in the left lung base measuring 8.4 mm corresponds to the radiographic findings seen yesterday. For both low risk and high risk patients, consider CT Chest at 3 months, PET/CT, or biopsy. (Reference: Maxi) REFERENCES: Jean-Paulhonickolas H, et al. Guidelines for Management of Incidental Pulmonary Nodules Detected on CT Images: From the Fleischner Society 2017. Radiology. 2017;284(1):228-243. Abdomen Ultrasound 05/28/22 11:25 IMPRESSION: 1. Although the spleen is normal size and there is loss of the normal concavity. This suggests very mild splenomegaly. 2. Otherwise abdomen ultrasound is negative. Laboratory Results WBC 2.6 10^3/uL (4.0-10.0) L 06/01/22 04:03 Corrected WBC Cancelled 05/28/22 13:25 RBC 2.58 10^6/uL (4.1-5.3) L 06/01/22 04:03 Hgb 9.0 g/dL (11.5-15.3) L 06/01/22 04:03 Hct 25.9 % (37.0-47.0) L 06/01/22 04:03 MCV 100.4 fl (81-99) H 06/01/22 04:03 MCH 34.9 pg (28.0-34.0) H 06/01/22 04:03 MCHC 34.7 g/dL (30.0-36.0) 06/01/22 04:03 RDW 18.3 % (12.1-15.1) H 06/01/22 04:03 Plt Count 65 10^3/cmm (130-400) L 06/01/22 04:03 MPV 10.4 fL (7.4-10.4) 06/01/22 04:03 Gran % Cancelled 05/28/22 13:25 Neut % (Auto) 51.1 % 06/01/22 04:03 Lymph % (Auto) 15.2 % 06/01/22 04:03 [place] % (Auto) 32.2 % 06/01/22 04:03 Eos % (Auto) 0.0 % 06/01/22 04:03 Baso % (Auto) 0.0 % 06/01/22 04:03 Reticulocyte % (Auto) 0.8 % (0.5-2.0) 05/30/22 04:35 Neut # (Auto) 1.35 10^3/uL (1.8-7.7) L 06/01/22 04:03 Lymph # (Auto) 0.4 10^3/uL (0.8-4.8) L 06/01/22 04:03 [place] # (Auto) 0.9 10^3/uL (0.2-0.9) 06/01/22 04:03 Eos # (Auto) 0.0 10^3/uL (0.0-0.8) 06/01/22 04:03 Baso # (Auto) 0.0 10^3/uL (0.0-0.1) 06/01/22 04:03 Absolute Gran (auto) Cancelled 05/28/22 13:25 Nucleated RBC % (auto) 0.8 % 06/01/22 04:03 Nucleated RBCs # 0.0 /100WBC 06/01/22 04:03 Haptoglobin 64.0 mg/L (30-200) 05/28/22 02:45 PT 17.70 SECONDS (12.1-14.9) H 05/31/22 03:10 INR 1.43 (0.8-1.2) H 05/31/22 03:10 APTT 39.2 SECONDS (23.9-36.7) H 05/27/22 17:09 Fibrinogen 246 mg/dL (174-498) 05/27/22 17:09 Fibrin Degrad Products Pos, >=40 ug/mL (NEG) H 05/27/22 17:09 D-Dimer 3.94 ug/mIFEU (0-0.59) H 05/30/22 16:20 Sodium 141 mmol/L (136-145) 06/01/22 04:03 Potassium 4.1 mmol/L (3.5-5.1) 06/01/22 04:03 Chloride 115 mmol/L (98-107) H 06/01/22 04:03 Carbon Dioxide 18 mmol/L (22-29) L 06/01/22 04:03 Anion Gap 12.1 (5-19) 06/01/22 04:03 BUN 26 mg/dL (8-23) H 06/01/22 04:03 Creatinine 0.9 mg/dL (0.5-0.9) 06/01/22 04:03 GFR Calculation 62.8 mL/min (90-130) L 06/01/22 04:03 Glucose 121 mg/dL (65-115) H 06/01/22 04:03 POC Glucose 144 mg/dL (70-110) H 06/01/22 10:52 Calculated Osmolality 298 mOsm/kg (285-295) H 06/01/22 04:03 Lactic Acid 1.0 mmol/L (0.5-2.2) 05/27/22 12:44 Calcium 7.3 mg/dL (8.5-10.5) L 06/01/22 04:03 Phosphorus 1.7 mg/dL (2.5-4.5) L 06/01/22 04:03 Magnesium 2.2 mg/dL (1.7-2.3) 06/01/22 04:03 Total Bilirubin 1.4 mg/dL (0.15-1.2) H 05/31/22 03:10 AST 64 U/L (0-32) H 05/31/22 03:10 ALT 50 U/L (0-33) H 05/31/22 03:10 Alkaline Phosphatase 135 U/L (35-105) H 05/31/22 03:10 Lactate Dehydrogenase 162 U/L (135-214) 05/30/22 04:35 Creatine Kinase 120 U/L (26-192) 05/31/22 03:10 Troponin T Baseline 13 ng/L (0-10) H 05/30/22 04:35 Troponin T 120 Minute 12.69 ng/L (0-10) H 05/30/22 07:00 Delta Troponin T -0.31 ABS# (0-10) L 05/30/22 07:00 C-Reactive Protein 3.0 mg/L (0.0-4.9) 05/31/22 03:10 Total Protein 7.3 g/dL (6.6-8.7) 05/31/22 03:10 Albumin 2.4 g/dL (3.5-5.2) L 05/31/22 03:10 Globulin 4.9 g/dL (1.3-4.6) H 05/31/22 03:10 Procalcitonin 0.08 ng/mL (0-0.5) 05/31/22 03:10 Urine Color Yellow (Yellow) 05/30/22 17:35 Urine Appearance Clear (CLEAR) 05/30/22 17:35 Urine pH 6 (5-7) 05/30/22 17:35 Ur Specific [place] 1.015 (1.005-1.030) 05/30/22 17:35 Urine Protein Trace (Negative) 05/30/22 17:35 Urine Glucose (UA) Norm (Normal) 05/30/22 17:35 Urine Ketones 1+ (Negative) H 05/30/22 17:35 Urine Blood Neg (Negative) 05/30/22 17:35 Urine Nitrate Negative (Negative) 05/30/22 17:35 Urine Bilirubin Neg (Negative) 05/30/22 17:35 Urine Urobilinogen 1 mg/dL (Negative) H 05/30/22 17:35 Ur Leukocyte Esterase Negative (Negative) 05/30/22 17:35 Urine RBC None /hpf (0-2) 05/30/22 17:35 Urine WBC None /hpf (0-5) 05/30/22 17:35 Ur Squamous Epith Cells 0-4 /hpf (0-5) H 05/30/22 17:35 Amorphous Sediment Not Reportable 05/30/22 17:35 Urine Bacteria None /hpf (NONE) 05/30/22 17:35 Ur Random Sodium 16 mmol/L 05/30/22 17:35 Urine Creatinine 106 mg/dL (28-217) 05/30/22 17:35 Blood Type O Positive 05/27/22 12:44 Rho(D) Type Positive 05/27/22 12:44 Antibody Screen Positive 05/27/22 12:44 Antibody Identification Anti-Fya 05/27/22 12:44 Antigen Identification Fya Antigen - NEGATIVE 05/27/22 12:44 Crossmatch See Detail 05/27/22 12:44 Vitals Last Vital Signs Temp 98.3 F 06/01/22 08:00 Pulse 89 06/01/22 08:53 Resp 24 H 06/01/22 08:52 BP 145/74 06/01/22 08:00 Pulse Ox 96 06/01/22 08:52 O2 Del Method 06/01/22 08:52 O2 Flow Rate 0.5 06/01/22 08:52 Discharge Plan Discharge Patient Disposition: Home Health Service Condition: Stable Prescriptions: New benzonatate 100 mg Capsule 100 mg PO TID PRN (Reason: Cough) 7 Days Qty: 21 0RF doxycycline hyclate 100 mg tablet 100 mg PO BID 5 Days Qty: 10 0RF Phospha 250 Neutral 250 mg Tablet 250 mg PO BID 5 Days Qty: 10 0RF albuterol sulfate 90 mcg/actuation HFA aerosol inhaler 1 inh inhalation Q6H PRN (Reason: shortness of breath or wheezing) Qty: 8.5 0RF fluticasone propion-salmeterol [Advair Diskus] 100-50 mcg/dose blister with device 1 inh inhalation BID Qty: 60 0RF Continued (DME) [employer] See Rx Instructions .Route .MEDSUPPLY Qty: 1 0RF Rx Instructions: As directed [id number]-oreg-capryl 100 mg-150 mg- 50 mg-150 mg capsule 1 cap PO DAILY calcium carbonate [Calcium 600] 600 mg calcium (1,500 mg) tablet 600 mg PO BID flaxseed oil 1,000 mg capsule 1,000 mg PO BID Rx Instructions: administer with meals zinc 50 mg tablet 50 mg PO DAILY magnesium 250 mg tablet 250 mg PO DAILY folic acid 1 mg tablet 1 mg PO DAILY Qty: 90 1RF tramadol 50 mg tablet 50 mg PO DAILY PRN (Reason: pain) Qty: 30 2RF (DME) Suppinator to the left and right ankles See Rx Instructions .Route .MEDSUPPLY Qty: 1 0RF Rx Instructions: As directed (DME) Shoes and [employer] See Rx Instructions .Route .MEDSUPPLY Qty: 1 0RF Rx Instructions: As directed By [facility] gabapentin 100 mg capsule 200 mg PO BID Qty: 120 2RF levothyroxine 50 mcg tablet See Rx Instructions .ROUTE .COMPLEX Qty: 30 2RF Dose Instruction: TAKE 1 TABLET BY MOUTH EVERY DAY Rx Instructions: TAKE 1 TABLET BY MOUTH EVERY DAY alendronate 70 mg tablet 70 mg PO Q7D Rx Instructions: On Saturday aspirin 81 mg Tablet,Chewable 81 mg PO DAILY acetaminophen 500 mg tablet 500 mg PO Q6H PRN (Reason: pain) 5 Days Qty: 20 0RF Held methotrexate sodium 2.5 mg tablet See Rx Instructions .ROUTE .COMPLEX Qty: 32 1RF Hold Instructions: Resume on 07/19/22. hold until you see rheumatology Dose Instruction: TAKE 8 TABLETS BY MOUTH EVERY 7 DAYS ON SUNDAYS Rx Instructions: TAKE 8 TABLETS BY MOUTH EVERY 7 DAYS ON SUNDAYS naproxen 500 mg tablet See Rx Instructions .ROUTE .COMPLEX Qty: 60 2RF Hold Instructions: Resume on 07/19/22. Dose Instruction: TAKE 1 TABLET BY MOUTH TWICE DAILY Rx Instructions: TAKE 1 TABLET BY MOUTH TWICE DAILY Enbrel SureClick 50 mg/mL (1 mL) pen injector 50 mg SUBCUT Q7D Hold Instructions: Resume on 07/19/22. hold until you see rheumatology Rx Instructions: On Sundays Discontinued azithromycin [Zithromax Z-Marcin] 250 mg tablet See Rx Instructions PO .COMPLEX Qty: 6 0RF Rx Instructions: For 250 mg dose pack: take 500 mg today (day 1), then 250 mg for 4 days (days 2-5) PO Paxlovid (EUA) 300 mg (150 mg x 2)-100 mg tablets,dose pack See Rx Instructions .ROUTE .COMPLEX Qty: 30 0RF Rx Instructions: take TWO 150 mg tablets of nirmatrelvir with ONE 100 mg tablet of ritonavir twice daily for 5 days Discharge Orders: Discharge Order (Routine); Ordered 06/01/22 Ordered By: Marino Moran Referrals: [facility] ([facility]) [Outside] Nayla Lawson FNP [Primary Care Provider] - 06/05/22 11:00 am Anjum Ackerman MD [Hospitalist] - 2 weeks (pancytopenia) Discharge Diet: Cardiac Discharge Activity: Resume usual activity Patient Instructions: Opioid Safety Assessment: - Please continue to self isolate, socially distance, facemask, hand wash -If you have any fevers, please come back to emergency room -Please hold methotrexate, Enbrel, naproxen until you see rheumatology -Please use albuterol as needed for shortness of breath, Advair -Please use Tessalon Perles as needed for cough -Continue doxycycline -If you develop any bleeding, go to the emergency room -Please see your primary care provider next week with a recheck CBC check your hemoglobin, platelet count, and your white blood cell count -Given your COVID-19 infection, you are at increased risk of developing blood clots, including hypercoagulable events including heart attacks -Make sure you continue to be mobile, if you develop any chest pain, any calf pain or calf swelling or sudden onset shortness of breath go to the emergency room Discharge Attestations Time Spent in Discharge Care*: less than 30 min Quality Metrics Clinical Quality Measures [ No reported AMI, CVA or VTE this stay] Coding Level of Care Code Acute g HAM OR note Diagnoses Acute kidney injury N17.9
[2022-06-01 12:04] LABS: Lyme AB Screen <0.90 index
[2022-06-05 17:58] LABS: RMSF IGG NOT DETECTED; RMSF IGM NOT DETECTED
[2022-06-05 21:33] LABS: E. Chaffeensis AB IGG <1:64; E. Chaffeensis AB IGM <1:20
== END 2022-06-01 15:05 | disposition home health service (06) | DRG 808 ==
LOC: ER 16:46 → MEDSURG 22:45
PROVIDERS: Internal Medicine; Student in an Organized Health Care Education/Training Program; Admitting Provider Internal Medicine; Emergency Provider Emergency Medicine; PCP Nurse Practitioner Family; Visit Provider Family Medicine
DX: D61.818 Other pancytopenia (principal); J12.82 Pneumonia due to coronavirus disease 2019; U07.1 COVID-19; D69.3 Immune thrombocytopenic purpura; D84.821 Immunodeficiency due to drugs; N17.9 Acute kidney failure, unspecified; E87.1 Hypo-osmolality and hyponatremia; D69.59 Other secondary thrombocytopenia; M06.9 Rheumatoid arthritis, unspecified; E03.9 Hypothyroidism, unspecified; M79.7 Fibromyalgia; F17.210 Nicotine dependence, cigarettes, uncomplicated; L60.3 Nail dystrophy; Z79.631 Long term (current) use of antimetabolite agent; N14.11 Contrast-induced nephropathy; T50.8X5A Adverse effect of diagnostic agents, initial encounter; E87.6 Hypokalemia; Z79.82 Long term (current) use of aspirin; Z79.891 Long term (current) use of opiate analgesic; R07.9 Chest pain, unspecified
CPT/HCPCS: 36415; 36416; 36430; 70450; 71045; 71275; 76700; 80048; 80053; 80503; 81001; 82550; 82575; 82962; 83010; 83605; 83615; 83735; 84100; 84145; 84300; 84484; 85014; 85018; 85025; 85045; 85362; 85378; 85384; 85610; 85730; 86140; 86403; 86618; 86666; 86757; 86850; 86870; 86900; 86902; 86920; 87040; 87426; 87641; 93005; 93306; 93970; 94640; 94664; 94760; 96372; 96374; 96375; 99284; 99285; C9113; J1568; J1815; J1940; J1956; J2405; J2543; J3370; J3475; J3490; J7030; J7050; J8540; P9037; P9040; Q3014; Q9967

== ENCOUNTER 2022-06-06 13:42 | Outpatient (CLI) | payer MEDICARE, MEDICAID, SELFPAY ==
[2022-06-06 14:04] LABS: Basophils % 0.5 %; Eosinophils # 0.1 10^3/uL (0.0-0.8); Eosinophils % 1.8 %; Hematocrit 26.6 % (37.0-47.0); Hemoglobin 9.8 g/dL (11.5-15.3); Lymphocytes # 0.7 10^3/uL (0.8-4.8); Lymphocytes % 8.4 %; Mean Corpuscular HGB Conc 36.8 g/dL (30.0-36.0); Mean Corpuscular Volume 100.4 fl (81-99); Mean Platelet Volume 11.1 fL (7.4-10.4); Monocytes # 1.3 10^3/uL (0.2-0.9); Monocytes % 16.6 %; Neutrophils # 5.24 10^3/uL (1.8-7.7); Nucleated Red Blood Cells % 0.4 %; Platelet Count 125 10^3/cmm (130-400); Red Blood Count 2.65 10^6/uL (4.1-5.3); Red Cell Distribution Width 17.8 % (12.1-15.1); White Blood Count 7.7 10^3/uL (4.0-10.0)
[2022-06-06 15:05] LABS: Slide Review Slide Review Perform
== END 2022-06-06 13:43 | disposition home or self-care (01) ==
LOC: LAB 13:43
PROVIDERS: PCP Nurse Practitioner Family; Visit Provider Family Medicine
DX: D69.6 Thrombocytopenia, unspecified (principal)
CPT/HCPCS: 36415; 85025

== ENCOUNTER 2022-06-11 | Outpatient (CLI) | payer MEDICARE, MEDICAID, SELFPAY ==
[2022-06-11 15:50] LABS: Alanine Aminotransferase 27 U/L (0-33); Albumin Level 2.1 g/dL (3.5-5.2); Alkaline Phosphatase 168 U/L (35-105); Anion Gap 13.9 (5-19); Aspartate Amino Transferase 38 U/L (0-32); Blood Urea Nitrogen 18 mg/dL (8-23); Calcium 7.5 mg/dL (8.5-10.5); Carbon Dioxide 23 mmol/L (22-29); Chloride 103 mmol/L (98-107); Globulin 4.5 g/dL (1.3-4.6); Glomerular Filtration Rate 100.3 mL/min (90-130); Glucose 74 mg/dL (65-115); Osmolality Calculated 283 mOsm/kg (285-295); Potassium 3.9 mmol/L (3.5-5.1); Sodium 136 mmol/L (136-145); Total Bilirubin 1.3 mg/dL (0.15-1.2); Total Protein 6.6 g/dL (6.6-8.7)
[2022-06-11 16:06] LABS: Red Blood Count 2.56 10^6/uL (4.1-5.3)
[2022-06-11 16:07] LABS: Hematocrit 25.5 % (37.0-47.0); Hemoglobin 9.2 g/dL (11.5-15.3); Mean Corpuscular HGB Conc 36.1 g/dL (30.0-36.0); Mean Corpuscular Hemoglobin 35.9 pg (28.0-34.0); Mean Corpuscular Volume 99.6 fl (81-99); Mean Platelet Volume 10.7 fL (7.4-10.4); Platelet Count 107 10^3/cmm (130-400); Red Cell Distribution Width 18.6 % (12.1-15.1)
[2022-06-11 16:08] LABS: Lymphocytes % 1.3 %; Monocytes % 1.2 %; Neutrophils % 6.3 %
[2022-06-11 16:10] LABS: Slide Review Slide Review Perform
== END 2022-06-11 23:00 | disposition home or self-care (01) ==
LOC: LAB 06-12 09:33
PROVIDERS: PCP Nurse Practitioner Family; Visit Provider Family Medicine
DX: D69.6 Thrombocytopenia, unspecified (principal)
CPT/HCPCS: 80053; 85025

== ENCOUNTER → 2022-09-17 13:48 | Outpatient (BNVA) | payer MEDICARE, MEDICAID, SELFPAY | PROVIDERS: PCP Nurse Practitioner Family; Visit Provider Nurse Practitioner Family | DX: D64.9 Anemia, unspecified (principal); Z79.899 Other long term (current) drug therapy; E03.9 Hypothyroidism, unspecified | CPT/HCPCS: 80053; 84443; 85025 ==

== ENCOUNTER 2022-10-05 09:27 | Oncology outpatient (recurring) (ONCR) | payer MEDICARE, MEDICAID, SELFPAY ==
[2022-10-05 10:59] LABS: Basophils # 0.1 10^3/uL (0.0-0.1); Basophils % 0.9 %; Eosinophils # 0.2 10^3/uL (0.0-0.8); Eosinophils % 2.4 %; Hematocrit 32.5 % (37.0-47.0); Lymphocytes % 24.8 %; Mean Corpuscular HGB Conc 33.8 g/dL (30.0-36.0); Mean Corpuscular Hemoglobin 33.4 pg (28.0-34.0); Mean Corpuscular Volume 98.8 fl (81-99); Mean Platelet Volume 8.9 fL (7.4-10.4); Monocytes # 0.8 10^3/uL (0.2-0.9); Monocytes % 9.7 %; Neutrophils # 5.08 10^3/uL (1.8-7.7); Nucleated Red Blood Cells % 0 %; Platelet Count 132 10^3/cmm (130-400); Red Blood Count 3.29 10^6/uL (4.1-5.3); Red Cell Distribution Width 15.9 % (12.1-15.1); White Blood Count 8.2 10^3/uL (4.0-10.0)
[2022-10-05 11:00] LABS: Reticulocyte % 4.3 % (0.5-2.0)
[2022-10-05 11:03] LABS: Erythrocyte Sedimentation Rate 44 mm/hr (0-15)
[2022-10-05 11:30] LABS: Alanine Aminotransferase 14 U/L (0-33); Albumin Level 3.4 g/dL (3.5-5.2); Alkaline Phosphatase 228 U/L (35-105); Aspartate Amino Transferase 31 U/L (0-32); Blood Urea Nitrogen 14 mg/dL (8-23); C Reactive Protein 6.6 mg/L (0.0-4.9); Calcium 9.5 mg/dL (8.5-10.5); Carbon Dioxide 24 mmol/L (22-29); Chloride 102 mmol/L (98-107); Ferritin 322 ng/mL (15-150); Globulin 4.5 g/dL (1.3-4.6); Glomerular Filtration Rate 83.7 mL/min (90-130); Glucose 106 mg/dL (65-115); Iron 57 ug/dL (37-145); Lactate Dehydrogenase 114 U/L (135-214); Osmolality Calculated 283 mOsm/kg (285-295); Percent Saturation 21.6 % (20-50); Sodium 136 mmol/L (136-145); Total Bilirubin 1.2 mg/dL (0.15-1.2); Total Iron Binding Capacity 263 mcg/dl; Total Protein 7.9 g/dL (6.6-8.7); Unsaturated Iron Binding 206 ug/dL (112-347)
[2022-10-05 11:44] LABS: Vitamin B12 1918 pg/mL (232-1245)
[2022-10-05 11:45] LABS: Folate Level 6.7 ng/mL (4.8-37.3)
[2022-10-05 12:01] LABS: LAB Peripheral Smear Sent for Review
== END 2022-10-09 23:59 | disposition home or self-care (01) ==
LOC: ONCMED 09:28
PROVIDERS: PCP Nurse Practitioner Family; Visit Provider Internal Medicine Medical Oncology
DX: D69.6 Thrombocytopenia, unspecified (principal); D64.9 Anemia, unspecified; Z79.631 Long term (current) use of antimetabolite agent; M06.9 Rheumatoid arthritis, unspecified; Z79.82 Long term (current) use of aspirin; R74.8 Abnormal levels of other serum enzymes
CPT/HCPCS: 36415; 80053; 82607; 82728; 82746; 83010; 83540; 83550; 83615; 85025; 85045; 85651; 86140; 99205

== ENCOUNTER → 2022-10-18 13:01 | Outpatient (BNVA) | payer MEDICARE, MEDICAID, SELFPAY | PROVIDERS: PCP Nurse Practitioner Family; Visit Provider Internal Medicine Rheumatology | DX: M05.79 Rheumatoid arthritis with rheumatoid factor of multiple sites without organ or systems involvement (principal); Z79.899 Other long term (current) drug therapy; Z71.85 Encounter for immunization safety counseling | CPT/HCPCS: 99214 ==

== ENCOUNTER 2022-10-29 14:25 | Outpatient (CLI) | payer MEDICARE, MEDICAID, SELFPAY ==
[2022-10-29 15:04] LABS: Basophils # 0.1 10^3/uL (0.0-0.1); Basophils % 0.5 %; Eosinophils # 0.3 10^3/uL (0.0-0.8); Eosinophils % 1.9 %; Hematocrit 35.9 % (37.0-47.0); Hemoglobin 12.2 g/dL (11.5-15.3); Lymphocytes # 2.9 10^3/uL (0.8-4.8); Mean Corpuscular Hemoglobin 33.2 pg (28.0-34.0); Mean Corpuscular Volume 97.8 fl (81-99); Mean Platelet Volume 9.1 fL (7.4-10.4); Monocytes # 1.3 10^3/uL (0.2-0.9); Neutrophils # 8.69 10^3/uL (1.8-7.7); Neutrophils % 65.3 %; Nucleated Red Blood Cells % 0 %; Platelet Count 175 10^3/cmm (130-400); Red Blood Count 3.67 10^6/uL (4.1-5.3); Red Cell Distribution Width 14.5 % (12.1-15.1); White Blood Count 13.3 10^3/uL (4.0-10.0)
[2022-10-29 15:26] LABS: Ferritin 232 ng/mL (15-150); Iron 113 ug/dL (37-145); Total Iron Binding Capacity 322 mcg/dl; Unsaturated Iron Binding 209 ug/dL (112-347)
--- NOTE | 2022-10-29 16:00 | CTR_ITS ---
PROCEDURE INFORMATION: Exam: CT Abdomen And Pelvis With Contrast Exam date and time: 10/29/2022 4:02 PM Age: 67 years old Clinical indication: Abnormal findings; Abnormal lab test; Elevated liver enzymes; Prior surgery; Surgery type: RT hip; Additional info: Elevated liver enzymes; Anemia and thrombocytopenia TECHNIQUE: Imaging protocol: Computed tomography of the abdomen and pelvis with contrast. Radiation optimization: All CT scans at this facility use at least one of these dose optimization techniques: automated exposure control; mA and/or kV adjustment per patient size (includes targeted exams where dose is matched to clinical indication); or iterative reconstruction. Contrast material: OMNI 350; Contrast volume: 95 ml; Contrast route: INTRAVENOUS (IV); REPORTING DATA: Count of CT and Cardiac NM exams in prior 12 months: This patient has received 2 known CTs and 0 known cardiac nuclear medicine studies in the 12 months prior to the current study. COMPARISON: CR XR hip LT 2-3V wo/w pel* [id number] 03/07/2020 9:16 AM RADIATION DOSE METRICS: Total DLP (mGy-cm): 271.34 FINDINGS: Lungs: The lung bases appear unremarkable. Liver: The liver is unremarkable in appearance. The liver margin is slightly irregular, raising concern for hepatic cirrhosis. No focal liver lesion is demonstrated. Gallbladder and bile ducts: No calcified gallstones in the gallbladder. No gallbladder wall thickening. No pericholecystic fluid. No biliary dilatation. No biliary dilatation. Pancreas: Unremarkable. No ductal dilation. Spleen: There is mild splenomegaly present. The spleen measures 12 cm in length by 9 cm transverse. No focal splenic lesion demonstrated. Adrenal glands: The adrenal glands appear within normal limits. Kidneys and ureters: The kidneys are normal in morphology. No hydronephrosis. No solid mass. Stomach and bowel: Mild nonspecific mural thickening of the gastric antrum, which may indicate gastritis in the proper clinical setting. The small bowel is unremarkable as demonstrated. No acute abnormality/inflammatory change of the colon. Appendix: The appendix is normal in appearance. No evidence of appendicitis. Intraperitoneal space: No pneumoperitoneum. No significant fluid collection. Vasculature: Small gastroesophageal varices are noted. The aorta is atherosclerotic. No aortic aneurysm. Lymph nodes: No pathologically enlarged lymph nodes are demonstrated. Urinary bladder: The urinary bladder is unremarkable in appearance. Reproductive: No acute abnormality demonstrated. Bones/joints: Status post ORIF right hip. No acute fracture or other acute osseous abnormality. Soft tissues: The abdominal wall demonstrates a small umbilical hernia, containing only fat. CT/CT abdomen pelvis w con* [id number] IMPRESSION: 1. The liver margin is slightly irregular, raising concern for hepatic cirrhosis. No focal liver lesion is demonstrated. No intrahepatic biliary dilatation. 2. There is mild splenomegaly present. The spleen measures 12 cm in length by 9 cm transverse. No focal splenic lesion demonstrated. 3. Small gastroesophageal varices are noted. 4. Mild nonspecific mural thickening of the gastric antrum, which may indicate gastritis in the proper clinical setting.
[2022-10-29] MEDS: iohexol 350 mg/mL 500 mL Btl (per mL) IV (16:22)
[2022-10-29] MEDS: iohexol 350 mg/mL 500 mL Btl (per mL) PO (16:23)
== END 2022-10-29 14:26 | disposition home or self-care (01) ==
LOC: RAD 14:27
PROVIDERS: PCP Nurse Practitioner Family; Visit Provider Internal Medicine Medical Oncology
DX: R74.8 Abnormal levels of other serum enzymes (principal); D64.9 Anemia, unspecified; R16.1 Splenomegaly, not elsewhere classified; I86.4 Gastric varices
CPT/HCPCS: 36415; 74177; 82728; 83540; 83550; 85025; Q9967

== ENCOUNTER → 2022-11-02 10:45 | Outpatient (BNVA) | payer MEDICARE, MEDICAID, SELFPAY | PROVIDERS: PCP Nurse Practitioner Family; Visit Provider Internal Medicine Medical Oncology | DX: M06.9 Rheumatoid arthritis, unspecified (principal); M05.79 Rheumatoid arthritis with rheumatoid factor of multiple sites without organ or systems involvement; R74.8 Abnormal levels of other serum enzymes | CPT/HCPCS: 86705; 86706; 86709; 86803; 87340 ==

== ENCOUNTER 2023-01-17 13:27 | Oncology outpatient (recurring) (ONCR) | payer MEDICARE, MEDICAID, SELFPAY ==
[2023-01-17 13:40] VITALS: BP 149/67; PULSE 87; RESP 16; TEMP 36.6; O2SAT 97
[2023-01-17 13:47] LABS: Basophils % 0.5 %; Eosinophils # 0.1 10^3/uL (0.0-0.8); Eosinophils % 0.8 %; Hematocrit 36.7 % (37.0-47.0); Hemoglobin 12.6 g/dL (11.5-15.3); Lymphocytes # 1.7 10^3/uL (0.8-4.8); Lymphocytes % 26.6 %; Mean Corpuscular HGB Conc 34.3 g/dL (30.0-36.0); Mean Corpuscular Hemoglobin 32.4 pg (28.0-34.0); Mean Corpuscular Volume 94.3 fl (81-99); Mean Platelet Volume 8.1 fL (7.4-10.4); Monocytes # 0.5 10^3/uL (0.2-0.9); Monocytes % 8.5 %; Neutrophils # 3.95 10^3/uL (1.8-7.7); Neutrophils % 63.4 %; Nucleated Red Blood Cells % 0 %; Platelet Count 73 10^3/cmm (130-400); Red Blood Count 3.89 10^6/uL (4.1-5.3); Red Cell Distribution Width 14.4 % (12.1-15.1); White Blood Count 6.2 10^3/uL (4.0-10.0)
[2023-01-17 14:08] LABS: Alanine Aminotransferase 15 U/L (0-33); Albumin Level 3.9 g/dL (3.5-5.2); Alkaline Phosphatase 251 U/L (35-105); Aspartate Amino Transferase 28 U/L (0-32); Globulin 3.4 g/dL (1.3-4.6); Glomerular Filtration Rate 83.7 mL/min (90-130); Total Bilirubin 1.1 mg/dL (0.15-1.2); Total Protein 7.3 g/dL (6.6-8.7)
== END 2023-02-08 23:59 | disposition home or self-care (01) ==
PROVIDERS: Internal Medicine Rheumatology; PCP Nurse Practitioner Family; Visit Provider Internal Medicine Medical Oncology
DX: D69.6 Thrombocytopenia, unspecified (principal); D64.9 Anemia, unspecified; M06.9 Rheumatoid arthritis, unspecified; Z79.899 Other long term (current) drug therapy; Z92.25 Personal history of immunosuppression therapy
CPT/HCPCS: 36415; 80076; 82565; 85025; 86140; 99213; 99214

== ENCOUNTER → 2023-02-22 13:34 | Outpatient (BNVA) | payer MEDICARE, MEDICAID, SELFPAY | PROVIDERS: PCP Nurse Practitioner Family; Visit Provider Podiatrist Foot & Ankle Surgery | DX: M06.9 Rheumatoid arthritis, unspecified (principal); M79.7 Fibromyalgia; S82.842G Displaced bimalleolar fracture of left lower leg, subsequent encounter for closed fracture with delayed healing; S92.002G Unspecified fracture of left calcaneus, subsequent encounter for fracture with delayed healing; W10.9XXD Fall (on) (from) unspecified stairs and steps, subsequent encounter | CPT/HCPCS: 73590; 73610; 99214 ==

== ENCOUNTER → 2023-02-27 09:09 | Outpatient (BNVA) | payer MEDICARE, MEDICAID, SELFPAY | PROVIDERS: PCP Nurse Practitioner Family; Visit Provider Specialist | DX: S82.122A Displaced fracture of lateral condyle of left tibia, initial encounter for closed fracture (principal); W17.89XA Other fall from one level to another, initial encounter; Z46.89 Encounter for fitting and adjustment of other specified devices | CPT/HCPCS: 27532; 73560; 73562; 73565; 97760; 99214; L1812 ==

== ENCOUNTER 2023-02-27 14:27 | Outpatient (CLI) | payer MEDICARE, MEDICAID, SELFPAY | END 2023-02-27 14:28 | disposition home or self-care (01) | LOC: SPT 14:28 | PROVIDERS: PCP Nurse Practitioner Family; Visit Provider Specialist | DX: Z46.89 Encounter for fitting and adjustment of other specified devices (principal); S82.142D Displaced bicondylar fracture of left tibia, subsequent encounter for closed fracture with routine healing; W10.9XXD Fall (on) (from) unspecified stairs and steps, subsequent encounter | CPT/HCPCS: 27532; 97760; 99214; L1812 ==

== ENCOUNTER 2023-03-06 14:10 | Outpatient (CLI) | payer MEDICARE, MEDICAID, SELFPAY ==
--- NOTE | 2023-03-06 14:30 | MR_ITS ---
WS: [id number] MRI LEFT KNEE HISTORY: Patient fell, fracture. COMPARISON: CT 03/06/2023 Anterior cruciate ligament: Intact. Posterior cruciate ligament: Intact. Medial collateral ligament: Intact. Posterior lateral corner structures: Intact. Medial menisci: Intact. Normal signal, size and shape. Lateral meniscus: Intact. Normal signal, size and shape. Extensor mechanism: Distal quadriceps tendon and patellar tendons are intact. Fluid and soft tissue: Large suprapatellar joint effusion. Soft tissue edema surrounding the knee. No Lopez's cyst. Osseous and articular structures: Patellofemoral compartment: Normal. Medial compartment: Mild narrowing medial compartment. Small amount of marrow edema in the medial fem oral condyle. Lateral compartment: There is a large amount of edema within the tibial plateau extending into the ti bial metaphysis and proximal diaphysis. Edema is probably predominantly in the lateral tibial plateau but extends across the midline at the base of the tibial spines. Depression of the tibial plateau by approximately 6 mm. No marrow edema in the femoral condyle. MR/MR knee LT con* [id number] IMPRESSION: 1. Complex depressed fracture involving the lateral tibial plateau. Depression of the lateral tibial plateau by 6 mm. 2. Large joint effusion. 3. Small amount of marrow edema in the medial femoral condyle. 4. No meniscal tear is evident.
--- NOTE | 2023-03-06 17:00 | CT_ITS ---
WS: [id number] CT LEFT KNEE, NONCONTRAST, 3-D. HISTORY: fracture Technique: All CT scans at [facility] use at least one of these dose optimization techniques: automated exposure control; mA and/or kV adjustment per patient size (includes targeted exams where dose is matched to clinical indication); or iterative reconstruction. DLP: 320.83 mGy.cm COMPARISON: Radiograph 02/27/2023. Patient has a known tibial plateau fracture. Tibial plateau fracture is identified by CT. Comminuted fracture with depression involving the lateral tibial plateau. There are multiple fracture lines thro ugh the tibial plateau being depressed approximately 6 mm. Fracture extends into the tibial metaphysi s and towards the tibial spines. Medial tibial plateau is intact. No femoral condyle fracture. Normal position of the patella. Mildly complex appearing suprapatellar joint effusion is moderate in size. Additional soft tissue lianna ma surrounding the knee is mild. CT/CT knee LT wo con* [id number] IMPRESSION: 1. Lateral tibial plateau complex fracture is depressed by 6 mm. Fracture exte nds into the metaphysis. 2. Moderate-sized joint effusion. 3. No additional fractures.
== END 2023-03-06 14:11 | disposition home or self-care (01) ==
LOC: RAD 14:13
PROVIDERS: PCP Nurse Practitioner Family; Visit Provider Specialist
DX: S82.142A Displaced bicondylar fracture of left tibia, initial encounter for closed fracture (principal); W19.XXXA Unspecified fall, initial encounter; M25.462 Effusion, left knee
CPT/HCPCS: 73700; 73721

== ENCOUNTER 2023-03-19 12:27 | Oncology outpatient (recurring) (ONCR) | payer MEDICARE, MEDICAID, SELFPAY ==
[2023-03-19 12:45] VITALS: BP 138/70; PULSE 96; RESP 18; TEMP 37.1; O2SAT 95
[2023-03-19 12:48] VITALS: BMI 24.3
[2023-03-19 13:06] LABS: Basophils % 0.7 %; Eosinophils # 0.1 10^3/uL (0.0-0.8); Hematocrit 34.8 % (37.0-47.0); Hemoglobin 12.4 g/dL (11.5-15.3); Lymphocytes # 1.7 10^3/uL (0.8-4.8); Lymphocytes % 27.8 %; Mean Corpuscular HGB Conc 35.6 g/dL (30.0-36.0); Mean Corpuscular Hemoglobin 34.5 pg (28.0-34.0); Mean Corpuscular Volume 96.9 fl (81-99); Mean Platelet Volume 8.7 fL (7.4-10.4); Monocytes # 0.7 10^3/uL (0.2-0.9); Monocytes % 11.7 %; Neutrophils # 3.57 10^3/uL (1.8-7.7); Neutrophils % 58.5 %; Nucleated Red Blood Cells % 0 %; Platelet Count 80 10^3/cmm (130-400); Red Blood Count 3.59 10^6/uL (4.1-5.3); Red Cell Distribution Width 14.1 % (12.1-15.1); White Blood Count 6.1 10^3/uL (4.0-10.0)
== END 2023-04-11 23:59 | disposition home or self-care (01) ==
PROVIDERS: Nurse Practitioner Family; PCP Nurse Practitioner Family; Visit Provider Internal Medicine Medical Oncology
DX: D69.6 Thrombocytopenia, unspecified (principal); D64.9 Anemia, unspecified; M06.9 Rheumatoid arthritis, unspecified; Z86.16 Personal history of COVID-19; E80.7 Disorder of bilirubin metabolism, unspecified; R74.8 Abnormal levels of other serum enzymes; Z79.899 Other long term (current) drug therapy
CPT/HCPCS: 36415; 85025; 99214

== ENCOUNTER → 2023-03-27 12:57 | Outpatient (BNVA) | payer MEDICARE, MEDICAID, SELFPAY | PROVIDERS: PCP Nurse Practitioner Family; Visit Provider Specialist | DX: S82.122A Displaced fracture of lateral condyle of left tibia, initial encounter for closed fracture; W10.8XXA Fall (on) (from) other stairs and steps, initial encounter | CPT/HCPCS: 99213 ==

== ENCOUNTER 2023-04-17 12:47 | Outpatient (CLI) | payer MEDICARE, MEDICAID, SELFPAY ==
--- NOTE | 2023-04-17 13:00 | CT_ITS ---
WS: [id number] NONCONTRAST CT LEFT KNEE TECHNIQUE: Noncontrast CT LEFT knee with coronal and sagittal reformatted images. CLINICAL INFORMATION: fracture COMPARISON: MRI 2022 DLP: 299.[address] scans at [facility] use at least one of these dose optimization techniques: automated e xposure control; mA and/or kV adjustment per patient size (includes targeted exams where dose is matc hed to clinical indication); or iterative reconstruction. FINDINGS: Osteopenia. Advanced tricompartmental degenerative arthritis. Vascular calcification. Small suprapate llar effusion. Tibial plateau fracture involving the lateral tibial plateau extending to the tibial s pines. Comminuted fracture extends to the posterior and lateral tibial plateau with depression measur ing approximately 5-6 mm. Normal medial tibial plateau. Suspected tiny healing fracture in the fibula head. Normal femoral condyles. IMPRESSION: 1. Slightly comminuted and depressed lateral tibial plateau fracture extending to the posterior and lateral tibial plateau. This extends to the tibial spines anteriorly. Depression measures approximate ly 5 to 6 mm similar to previous. 2. Some evidence of healing compared to the prior MRI but fracture lines are persistent. 3. Suspected tiny healing fracture in the fibula head. 4. Small suprapatellar effusion. 5. Osteopenia. 6. Moderate to advanced tricompartmental arthritis.
== END 2023-04-17 12:48 | disposition home or self-care (01) ==
LOC: RAD 12:48
PROVIDERS: PCP Nurse Practitioner Family; Visit Provider Specialist
DX: S82.142A Displaced bicondylar fracture of left tibia, initial encounter for closed fracture (principal); X58.XXXA Exposure to other specified factors, initial encounter; M25.462 Effusion, left knee; M17.12 Unilateral primary osteoarthritis, left knee; M85.862 Other specified disorders of bone density and structure, left lower leg
CPT/HCPCS: 73700

== ENCOUNTER → 2023-04-25 14:13 | Outpatient (BNVA) | payer MEDICARE, MEDICAID, SELFPAY | PROVIDERS: PCP Nurse Practitioner Family; Visit Provider Internal Medicine Rheumatology | DX: Z79.899 Other long term (current) drug therapy (principal); M05.79 Rheumatoid arthritis with rheumatoid factor of multiple sites without organ or systems involvement; Z71.85 Encounter for immunization safety counseling; D75.9 Disease of blood and blood-forming organs, unspecified | CPT/HCPCS: 99214 ==

== ENCOUNTER → 2023-04-29 12:48 | Outpatient (BNVA) | payer MEDICARE, MEDICAID, SELFPAY | PROVIDERS: PCP Nurse Practitioner Family; Visit Provider Specialist | DX: M17.32 Unilateral post-traumatic osteoarthritis, left knee; S82.122A Displaced fracture of lateral condyle of left tibia, initial encounter for closed fracture; X58.XXXA Exposure to other specified factors, initial encounter | CPT/HCPCS: 99213 ==

== ENCOUNTER → 2023-05-23 11:17 | Outpatient (BNVA) | payer MEDICARE, MEDICAID, SELFPAY | PROVIDERS: PCP Nurse Practitioner Family; Visit Provider Nurse Practitioner Family | DX: M05.79 Rheumatoid arthritis with rheumatoid factor of multiple sites without organ or systems involvement (principal); Z79.899 Other long term (current) drug therapy | CPT/HCPCS: 80076; 82565; 85025; 86140 ==

== ENCOUNTER → 2023-05-27 14:24 | Outpatient (BNVA) | payer MEDICARE, MEDICAID, SELFPAY | PROVIDERS: PCP Nurse Practitioner Family; Visit Provider Nurse Practitioner | DX: M17.32 Unilateral post-traumatic osteoarthritis, left knee (principal); S82.122G Displaced fracture of lateral condyle of left tibia, subsequent encounter for closed fracture with delayed healing; W10.8XXD Fall (on) (from) other stairs and steps, subsequent encounter | CPT/HCPCS: 73560; 73565; 99213 ==

== ENCOUNTER 2023-06-25 12:53 | Oncology outpatient (recurring) (ONCR) | payer MEDICARE, MEDICAID, SELFPAY ==
[2023-06-25 12:56] VITALS: BP 132/72; PULSE 97; RESP 16; TEMP 36.3; O2SAT 94
[2023-06-25 13:10] LABS: Basophils # 0.1 10^3/uL (0.0-0.1); Basophils % 0.6 %; Eosinophils # 0.1 10^3/uL (0.0-0.8); Eosinophils % 1.5 %; Hematocrit 38.8 % (36-47); Lymphocytes # 1.4 10^3/uL (0.8-4.8); Lymphocytes % 16.5 %; Mean Corpuscular HGB Conc 35.8 g/dL (30-55); Mean Corpuscular Hemoglobin 33.8 pg (27-33); Mean Corpuscular Volume 94.4 fl (85-98); Mean Platelet Volume 8.2 fL (7.4-10.4); Monocytes # 0.9 10^3/uL (0.2-0.9); Monocytes % 10.4 %; Neutrophils # 5.77 10^3/uL (1.8-7.7); Neutrophils % 70.8 %; Nucleated Red Blood Cells % 0 %; Platelet Count 101 10^3/cmm (157-399); Red Blood Count 4.11 10^6/uL (3.85-5.65); Red Cell Distribution Width 13.2 % (12.1-15.1); White Blood Count 8.16 10^3/uL (3.29-11.43)
[2023-06-25 13:29] LABS: Alanine Aminotransferase 15 U/L (0-33); Albumin Level 3.7 g/dL (3.5-5.2); Alkaline Phosphatase 197 U/L (35-105); Aspartate Amino Transferase 20 U/L (0-32); Blood Urea Nitrogen 12 mg/dL (8-23); Calcium 9.2 mg/dL (8.5-10.5); Carbon Dioxide 25 mmol/L (22-29); Chloride 105 mmol/L (98-107); Globulin 3.6 g/dL (1.3-4.6); Glomerular Filtration Rate 83.7 mL/min (90-130); Glucose 115 mg/dL (65-115); Osmolality Calculated 287 mOsm/kg (285-295); Sodium 138 mmol/L (136-145); Total Bilirubin 1.2 mg/dL (0.15-1.2); Total Protein 7.3 g/dL (6.6-8.7)
== END 2023-07-11 23:59 | disposition home or self-care (01) ==
PROVIDERS: Nurse Practitioner Family; PCP Nurse Practitioner Family; Visit Provider Internal Medicine Medical Oncology
DX: D69.6 Thrombocytopenia, unspecified (principal); D64.9 Anemia, unspecified; Z79.899 Other long term (current) drug therapy
CPT/HCPCS: 36415; 80053; 85025

== ENCOUNTER → 2023-07-17 12:50 | Outpatient (BNVA) | payer MEDICARE, MEDICAID, SELFPAY | PROVIDERS: PCP Nurse Practitioner Family; Visit Provider Nurse Practitioner | DX: M17.32 Unilateral post-traumatic osteoarthritis, left knee; M25.561 Pain in right knee; G89.29 Other chronic pain; S82.122G Displaced fracture of lateral condyle of left tibia, subsequent encounter for closed fracture with delayed healing; W10.8XXD Fall (on) (from) other stairs and steps, subsequent encounter | CPT/HCPCS: 73562 ==

== ENCOUNTER → 2023-07-25 14:14 | Outpatient (BNVA) | payer MEDICARE, MEDICAID, SELFPAY | PROVIDERS: PCP Nurse Practitioner Family; Visit Provider Internal Medicine Rheumatology | DX: Z79.899 Other long term (current) drug therapy (principal); M05.79 Rheumatoid arthritis with rheumatoid factor of multiple sites without organ or systems involvement | CPT/HCPCS: 36415; 80076; 82565; 85025; 86140 ==

== ENCOUNTER 2023-09-25 13:00 | Oncology outpatient (recurring) (ONCR) | payer MEDICARE, MEDICAID, SELFPAY ==
[2023-09-25 13:18] LABS: Basophils % 0.3 %; Eosinophils # 0.1 10^3/uL (0.0-0.8); Eosinophils % 0.9 %; Lymphocytes % 31.3 %; Mean Corpuscular HGB Conc 35.9 g/dL (30-55); Mean Corpuscular Hemoglobin 33.5 pg (27-33); Mean Corpuscular Volume 93.4 fl (85-98); Mean Platelet Volume 9.1 fL (7.4-10.4); Monocytes # 0.7 10^3/uL (0.2-0.9); Monocytes % 10.9 %; Neutrophils # 3.64 10^3/uL (1.8-7.7); Nucleated Red Blood Cells % 0 %; Platelet Count 108 10^3/cmm (157-399); Red Blood Count 3.64 10^6/uL (3.85-5.65); Red Cell Distribution Width 14.1 % (12.1-15.1); White Blood Count 6.51 10^3/uL (3.29-11.43)
[2023-09-25 13:36] LABS: Alanine Aminotransferase 39 U/L (0-33); Albumin Level 4.2 g/dL (3.5-5.2); Alkaline Phosphatase 273 U/L (35-105); Anion Gap 14.4 (5-19); Aspartate Amino Transferase 48 U/L (0-32); Blood Urea Nitrogen 20 mg/dL (8-23); Carbon Dioxide 26 mmol/L (22-29); Chloride 104 mmol/L (98-107); Globulin 3.6 g/dL (1.3-4.6); Glomerular Filtration Rate 71.5 mL/min (90-130); Glucose 89 mg/dL (65-115); Lactate Dehydrogenase 163 U/L (135-214); Osmolality Calculated 292 mOsm/kg (285-295); Potassium 4.4 mmol/L (3.5-5.1); Sodium 140 mmol/L (136-145); Total Bilirubin 0.9 mg/dL (0.15-1.2); Total Protein 7.8 g/dL (6.6-8.7)
== END 2023-10-10 23:59 | disposition home or self-care (01) ==
PROVIDERS: Nurse Practitioner Family; PCP Family Medicine; Visit Provider Internal Medicine Medical Oncology
DX: Z79.899 Other long term (current) drug therapy; D69.59 Other secondary thrombocytopenia; M05.9 Rheumatoid arthritis with rheumatoid factor, unspecified; Z79.622 Long term (current) use of Janus kinase inhibitor; F17.210 Nicotine dependence, cigarettes, uncomplicated; R20.2 Paresthesia of skin; R20.0 Anesthesia of skin
CPT/HCPCS: 36415; 80053; 83615; 85025; 99214

== ENCOUNTER → 2023-10-24 13:39 | Outpatient (BNVA) | payer MEDICARE, MEDICAID, SELFPAY | PROVIDERS: Visit Provider Internal Medicine Rheumatology | DX: Z79.899 Other long term (current) drug therapy (principal); M05.79 Rheumatoid arthritis with rheumatoid factor of multiple sites without organ or systems involvement; Z71.85 Encounter for immunization safety counseling; D75.9 Disease of blood and blood-forming organs, unspecified; M79.7 Fibromyalgia; D69.6 Thrombocytopenia, unspecified | CPT/HCPCS: 99214 ==

== ENCOUNTER → 2023-11-26 12:42 | Outpatient (BNVA) | payer MEDICARE, MEDICAID, SELFPAY | PROVIDERS: PCP Family Medicine; Visit Provider Specialist | DX: R20.0 Anesthesia of skin (principal); R20.2 Paresthesia of skin; G56.21 Lesion of ulnar nerve, right upper limb | CPT/HCPCS: 95911 ==

== ENCOUNTER → 2024-02-10 12:47 | Outpatient (BNVA) | payer MEDICARE, MEDICAID, SELFPAY | PROVIDERS: PCP Family Medicine; Visit Provider Nurse Practitioner | DX: G56.21 Lesion of ulnar nerve, right upper limb (principal) | CPT/HCPCS: 99213 ==

== ENCOUNTER → 2024-04-09 13:32 | Outpatient (BNVA) | payer MEDICARE, MEDICAID, SELFPAY | PROVIDERS: PCP Family Medicine; Visit Provider Internal Medicine Rheumatology | DX: Z79.899 Other long term (current) drug therapy (principal); M05.79 Rheumatoid arthritis with rheumatoid factor of multiple sites without organ or systems involvement; Z71.85 Encounter for immunization safety counseling; D75.9 Disease of blood and blood-forming organs, unspecified; M79.7 Fibromyalgia; D69.6 Thrombocytopenia, unspecified; F17.210 Nicotine dependence, cigarettes, uncomplicated | CPT/HCPCS: 99214 ==

== ENCOUNTER → 2024-11-09 13:34 | Outpatient (BNVA) | payer MEDICARE, MEDICAID, SELFPAY | PROVIDERS: PCP Family Medicine; Visit Provider Internal Medicine Rheumatology | DX: M05.79 Rheumatoid arthritis with rheumatoid factor of multiple sites without organ or systems involvement (principal); Z79.899 Other long term (current) drug therapy; Z71.85 Encounter for immunization safety counseling; D75.9 Disease of blood and blood-forming organs, unspecified; M79.7 Fibromyalgia; D69.6 Thrombocytopenia, unspecified | CPT/HCPCS: 99214 ==

== ENCOUNTER → 2025-02-24 13:45 | Outpatient (BNVA) | payer MEDICARE, MEDICAID, SELFPAY | PROVIDERS: PCP Family Medicine; Visit Provider Internal Medicine Rheumatology | DX: M05.79 Rheumatoid arthritis with rheumatoid factor of multiple sites without organ or systems involvement (principal); Z79.899 Other long term (current) drug therapy; Z71.85 Encounter for immunization safety counseling; D75.9 Disease of blood and blood-forming organs, unspecified; M79.7 Fibromyalgia; D69.6 Thrombocytopenia, unspecified | CPT/HCPCS: 99214 ==

== ENCOUNTER 2025-06-17 10:48 | Outpatient (CLI) | payer MEDICAID, MEDICARE, SELFPAY ==
[2025-06-17 11:53] LABS: Hepatitis B Surface Antigen Non-Reactive (Nonreactive)
== END 2025-06-17 10:49 | disposition home or self-care (01) ==
LOC: LAB 10:53
PROVIDERS: PCP Family Medicine; Visit Provider Internal Medicine Rheumatology
DX: Z79.899 Other long term (current) drug therapy (principal)
CPT/HCPCS: 36415; 82306; 86480; 86704; 86803; 87340